=== PATIENT | female | born 1960 | race Caucasian/White ===

== ENCOUNTER 2016-10-24 11:52 | Emergency (ER) ==
[2016-10-24 11:58] VITALS: BP 118/81; TEMP 98.1; BMI 39.6
[2016-10-24 12:27] LABS: BASOPHILS # (AUTO) 0.1 K/uL (0-0.2); BASOPHILS % (AUTO) 0.8 % (0.0-3.0); EOSINOPHILS # (AUTO) 0.3 K/ul (0.0-0.7); EOSINOPHILS % (AUTO) 3.6 % (0.0-7.0); HEMATOCRIT 32.3 % (37.0-47.0); HEMOGLOBIN 10.7 g/dl (12.0-16.0); IMMATURE GRANULOCYTE % (AUTO) 0.1 % (0.0-5.0); LYMPHOCYTES # (AUTO) 1.8 K/uL (0.60-3.4); LYMPHOCYTES % (AUTO) 24.8 (10.0-50.0); MEAN CORPUSCULAR HEMOGLOBIN 29.3 pg (27.0-31.0); MEAN CORPUSCULAR HGB CONC 33.1 (31.8-35.4); MEAN CORPUSCULAR VOLUME 88.5 fl (81.0-99.0); MONOCYTES # (AUTO) 0.4 K/uL (0.4-2.0); MONOCYTES % (AUTO) 5.4 (0-10); NEUTROPHILS # (AUTO) 4.7 K/ul (2.0-6.9); NEUTROPHILS % (AUTO) 65.3; PLATELET COUNT 255 10^3/uL (140-440); RED BLOOD COUNT 3.65 10^6/ul (4.20-5.40); WHITE BLOOD COUNT 7.22 K/ul (4.6-10.2)
[2016-10-24 12:46] LABS: PARTIAL THROMBOPLASTIN TIME 26.3 SEC (23.9-40.0); PROTHROMBIN TIME 10.3 SEC (9.3-11.0)
--- NOTE | 2016-10-24 12:48 | DI ---
EXAM: Chest one view, frontal view only. HISTORY: Chest pain. COMPARISON: 02/22/2016. FINDINGS: Left-sided pacemaker noted. The heart size is normal. There is no pulmonary vascular co ngestion. The lungs are clear. No pleural effusion or pneumothorax is seen. No acute osseous abno rmality is identified. IMPRESSION: No acute cardiopulmonary process.
[2016-10-24 13:05] LABS: ALBUMIN 3.4 g/dL (3.4-5.0); ALBUMIN/GLOBULIN RATIO 0.97; BILIRUBIN,TOTAL 0.28 mg/dL (0.00-1.20); BUN/CREATININE RATIO 20.83; CALCIUM 9.5 mg/dL (8.2-10.2); CREATININE 0.72 mg/dL (0.60-1.30); TOTAL PROTEIN 6.9 g/dL (6.4-8.2); TROPONIN I 0.042 ng/ml (0.0000-0.4000)
--- NOTE | 2016-10-24 13:24 | ED.PDOC ---
General ED Provider: Dr. KATHLEEN BAINS Chief Complaint: Palpitations Stated Complaint: palpitation Time Seen by Physician: 12:00 Mode of Arrival: Walk-In Information Source: Patient Exam Limitations: No limitations Primary Care Provider: DOMINIC PIZANO Nursing and Triage Documentation Reviewed and Agree: Yes Cardiovascular Complaint Exam - Palpitations Complaint/Exam Onset/Duration: off/on x 1 week Timing: Intermittent Initial Severity: Mild Current Severity: None Character: Reports: Irregular, Pounding, Skipped beats Aggravating: Reports: Exertion Alleviating: Reports: Rest Associated Signs and Symptoms: Denies: Lightheadedness, Dizziness, Syncope, Chest pain, Shortness of breath, Diaphoresis, Nausea, Vomiting Related History: Similar episode Review of Systems - Review Of Systems Constitutional: Reports: No symptoms Eyes: Reports: No symptoms Ears, Nose, Mouth, Throat: Reports: No symptoms Respiratory: Reports: No symptoms Cardiac: Reports: Palpitations GI: Reports: No symptoms : Reports: No symptoms Musculoskeletal: Reports: No symptoms Skin: Reports: No symptoms Neurological: Reports: No symptoms Endocrine: Reports: No symptoms Hematologic/Lymphatic: Reports: No symptoms All Other Systems: Reviewed and Negative Past Medical History - Past Medical History Previously Healthy: No Endocrine: Reports: Hypothyroid Cardiovascular: Reports: Other (s/p abelation) Respiratory: Reports: None Hematological: Reports: None Gastrointestinal: Reports: None Genitourinary: Reports: None Neuro/Psych: Reports: None Musculoskeletal: Reports: None Cancer: Reports: None Last Menstrual Period: none - Surgical History General Surgical History: Reports: Unknown - Family History Family History: Reports: Unknown - Social History Smoking Status: Former smoker Hx Substance Use: No Alcohol Screening: None Physical Exam - Physical Exam Appearance: Well-appearing, No pain distress, Well-nourished Eyes: MARYCHUY, EOMI, Conjunctiva clear ENT: Ears normal, Nose normal, Oropharynx normal Respiratory: Airway patent, Breath sounds clear, Breath sounds equal, Respirations nonlabored Cardiovascular: RRR, Pulses normal, No rub, No murmur GI/: Soft, Nontender, No masses, Bowel sounds normal, No Organomegaly Musculoskeletal: Normal strength, ROM intact, No edema, No calf tenderness Skin: Warm, Dry, Normal color Neurological: Sensation intact, Motor intact, Reflexes intact, Cranial nerves intact, Alert, Oriented Psychiatric: Affect appropriate, Mood appropriate Interpretation - EKG Interpretation Time of EKG #1: 12:12 (atrial paced rythm umderlying artifact RBBB) Physician Notification - Case Discussed Physician Notified: CARO BLANCO STATED PT MAY GO HOME WITH A HOLTER DEVICE Critical Care Note - Critical Care Note Total Time (mins): 0 Course - Course Hematology/Chemistry: 10/24/16 12:20 10/24/16 12:20 Orders, Labs, Meds: Lab Review 10/24/16 12:20 WBC 7.22 RBC 3.65 L Hgb 10.7 L Hct 32.3 L MCV 88.5 MCH 29.3 MCHC 33.1 RDW Coeff of Gisselle 13.4 Plt Count 255 Immature Gran % (Auto) 0.1 Neut % (Auto) 65.3 Lymph % (Auto) 24.8 Foard % (Auto) 5.4 Eos % (Auto) 3.6 Baso % (Auto) 0.8 Immature Gran # (Auto) 0.0 Neut # 4.7 Lymph # 1.8 Foard # 0.4 Eos # 0.3 Baso # 0.1 PT 10.3 INR 1.00 APTT 26.3 Sodium 143 Potassium 4.0 Chloride 106 Carbon Dioxide 28 Anion Gap 13.0 BUN 15 Creatinine 0.72 Estimated GFR (MDRD) 84.00 BUN/Creatinine Ratio 20.83 Glucose 83 Calcium 9.5 Total Bilirubin 0.28 AST 17 ALT 12 Alkaline Phosphatase 55 Total Creatine Kinase 33 Troponin I 0.0420 Total Protein 6.9 Albumin 3.4 Globulin 3.5 Albumin/Globulin Ratio 0.97 Free T4 0.93 Orders Category Date Time Status EKG-(ED ONLY) Stat CARDIO 10/24/16 12:12 Completed ED IV/MEDIPORT/POWERPORT .ONCE EMERGENCY 10/24/16 12:11 Active CBC W/ AUTO DIFF Stat LAB 10/24/16 12:20 Completed COMPREHENSIVE METABOLIC PANEL Stat LAB 10/24/16 12:20 Completed CREATINE KINASE Stat LAB 10/24/16 12:20 Completed FREE T4 (FREE THYROXINE) Stat LAB 10/24/16 12:20 Completed PARTIAL THROMBOPLASTIN TIME Stat LAB 10/24/16 12:20 Completed PT WITH INR Stat LAB 10/24/16 12:20 Completed TROPONIN I Stat LAB 10/24/16 12:20 Completed 0.9 % Sodium Chloride [Saline Flush] MEDS 10/24/16 12:11 Active 1 syr IVF PRN PRN CHEST, 1V AP ONLY Stat RADS 10/24/16 12:11 Completed Medications Generic Name Dose Route Start Last Admin Trade Name Freq PRN Reason Stop Dose Admin Sodium Chloride 1 syr 10/24/16 12:11 Saline Flush IVF PRN PRN To flush IV Vital Signs: Temp Pulse Resp BP Pulse Ox 10/24/16 11:53 98.1 F 82 18 118/81 97 LIZY Risk Score LIZY Risk Score: Risk Score Odds of by 30D 0 0.1 (0.1-0.2) 1 0.3 (0.2-0.3) 2 0.4 (0.3-0.5) 3 0.7 (0.6-0.9) 4 1.2 (1.0-1.5) 5 2.2 (1.9-2.6) 6 3.0 (2.5-3.6) 7 4.8 (3.8-6.1) Departure - Departure Time of Disposition: 14:15 (SPOKE TO PT WITH PMD INSTRUCTIONS NURSE AT BEDSIDE HERNAN OF LABS AND EKG GIVEN TO PT TO TAKE TO PMD ) Disposition: TSF SHORT-TRM HOSP Discharge Problem: Palpitations Instructions: Palpitations (ED) Condition: Good Pt referred to PMD for follow-up: Yes Allergies/Adverse Reactions: Allergies doxepin HCl [From Sinequan] Adverse Reaction (Verified 10/24/16 11:59) Home Medications: Ambulatory Orders Furosemide [Lasix] 20 mg PO DAILY 04/24/14 Citalopram Hydrobromide [Celexa] 20 mg PO DAILY 10/24/16 Levothyroxine Sodium [Synthroid] 50 mcg PO QDAC 10/24/16 Nadolol 80 mg PO BID 10/24/16 Ursodiol [Actigall] 300 mg PO BID 10/24/16
--- NOTE | 2016-10-26 09:43 | HOLTER ---
PATIENT INFORMATION AND COMMENTS Indications: PALPITATIONS __ Patient Medications: CELEXA, SYNTHROID, ACTIGALL, NADOLOL __ Pre-procedure Summary: Protocol: Standard Heart Rate Started: 10/24/16 1433 Minimum: 65 BPM Weight: 210 LBS Ended: 10/25/16 1407 Maximum: 129 BPM Height: 61" Duration: 23 HRS 34 MIN Average: 80 BPM _ INTERPRETATIONS/OBSERVATIONS: 1. BASIC RHYTHM: SINUS, RATE 65 TO 130/BPM, AVERAGE 80/BPM 2. RARE PVC'S AND PAC'S 3. NO ST-T WAVE CHANGES 4. ACTIVITY LOG NOT MAINTAINED MTDD
== END 2016-10-24 14:47 | disposition home or self-care (01) ==
LOC: ED 11:52
DX: R00.2 Palpitations (principal); E03.9 Hypothyroidism, unspecified; Z79.899 Other long term (current) drug therapy
CPT/HCPCS: 36415; 80053; 82550; 84439; 84484; 85025; 85610; 85730; 93005; 93010; 99283

== ENCOUNTER 2016-12-26 13:47 | Outpatient (CLI) ==
[2016-12-26 13:59] LABS: BASOPHILS # (AUTO) 0.1 K/uL (0-0.2); BASOPHILS % (AUTO) 0.9 % (0.0-3.0); EOSINOPHILS # (AUTO) 0.1 K/ul (0.0-0.7); EOSINOPHILS % (AUTO) 1.5 % (0.0-7.0); HEMATOCRIT 37.8 % (37.0-47.0); HEMOGLOBIN 12.2 g/dl (12.0-16.0); IMMATURE GRANULOCYTE % (AUTO) 0.3 % (0.0-5.0); LYMPHOCYTES # (AUTO) 1.5 K/uL (0.60-3.4); LYMPHOCYTES % (AUTO) 15.6 (10.0-50.0); MEAN CORPUSCULAR HEMOGLOBIN 28.7 pg (27.0-31.0); MEAN CORPUSCULAR HGB CONC 32.3 (31.8-35.4); MEAN CORPUSCULAR VOLUME 88.9 fl (81.0-99.0); MONOCYTES # (AUTO) 0.3 K/uL (0.4-2.0); MONOCYTES % (AUTO) 3.5 (0-10); NEUTROPHILS # (AUTO) 7.4 K/ul (2.0-6.9); NEUTROPHILS % (AUTO) 78.2; PLATELET COUNT 304 10^3/uL (140-440); RED BLOOD COUNT 4.25 10^6/ul (4.20-5.40)
[2016-12-26 14:17] LABS: ALBUMIN/GLOBULIN RATIO 1.05; ANION GAP 11.7; BILIRUBIN,TOTAL 0.26 mg/dL (0.00-1.20); BUN/CREATININE RATIO 23.07; CALCIUM 9.6 mg/dL (8.2-10.2); CREATININE 0.78 mg/dL (0.60-1.30); POTASSIUM 3.7 mmol/L (3.5-5.10); TOTAL PROTEIN 7.8 g/dL (6.4-8.2)
--- NOTE | 2016-12-26 15:00 | CT ---
EXAM: CT of the lumbar spine without contrast History: Lower back pain. Comparison: Lumbar spine CT 07/15/2016 Technique: Multiplanar CT images through the lumbar spine were obtained without the administration of IV contrast Findings: Atherosclerotic vascular calcifications. Right renal cyst. No acute fracture. Mild to moderate multilevel degenerative disc space narrowing, similar to the pr ior study. Stable mild anterolisthesis of L4 on L5. T12-L1: No significant disc bulge, central canal stenosis or bony neural foraminal narrowing. L1-L2: No significant disc bulge, central canal stenosis or bony neural foraminal narrowing. L2-L3: No significant disc bulge or bony central canal stenosis. Mild to moderate left and mild ri ght bony neural foraminal narrowing secondary to ligamentous and facet hypertrophy. L3-L4: Small disc bulge effacing the anterior thecal sac with no significant central canal stenosis . Moderate left and mild right bony neural foraminal narrowing secondary to ligamentous and facet h ypertrophy. L4-L5: Small disc bulge with no significant central canal stenosis. Severe left and mild to modera te right bony neural foraminal narrowing secondary to ligamentous and facet hypertrophy. L5-S1: No significant disc bulge or bony central canal stenosis. Severe right and moderate left waqas [place] neural foraminal narrowing secondary to ligamentous and facet hypertrophy. Impression: 1. No acute osseous abnormality of the lumbar spine. 2. Level by level analysis as detailed above not significantly changed compared to the prior study.
== END 2016-12-26 13:48 | disposition home or self-care (01) ==
LOC: RAD 13:47
PROVIDERS: ATTEND Emergency Medicine
DX: M54.5 Low back pain (principal); E11.9 Type 2 diabetes mellitus without complications; I10 Essential (primary) hypertension; E78.5 Hyperlipidemia, unspecified; D64.9 Anemia, unspecified
CPT/HCPCS: 36415; 80053; 85025

== ENCOUNTER → 2017-02-15 | Outpatient (RCR) ==
--- NOTE | 2017-02-07 11:31 | RS.OPPTEV2 ---
Date of Note: 02/06/17 Visit #: 1 Date of Evaluation: 02/06/17 Payer Source: Medicaid Treatment Diagnosis: middle and lower back pain History of Condition/Mechanism of Injury:: Patient reports progressive onset of low back pain. Reports no known injury. Functional Limitations: Sleep, Self Care, ADL's, Reaching, Sitting, Bending, Squatting Current Subjective/complaints:: Patient reports having middle and lower back pain. States she has pain into the legs all the time. States she does get symptoms of tingling/numbness into the legs, but mostly at night. States the only relief she gets is with walking. States she walks 6-7 miles per day. States towards the end of her walking, she gets pain in the middle of the back. States laying sitting usually cause increased pain. She has to change positions frequently. Treatment Side (optional): Left Medical History Medical History: Hypertension, Arthritis, Emphysema Medical History Comments:: former Diabetic Surgical History Comments:: (R) knee, hysterectomy, (R) hand carpal tunnel, Ostomy, Gastric surgery Smoking Status: Former smoker Hx Home Medications: Ibuprofen Patient's Goals: Her goal is to get relief of back pain. Pain Assessment - Pain Description Pain Location: middle and low back Current Pain Intensity: 7/10 Worst Pain Intensity: 10/10 Functional Outcome Measure Oswestry LBP: 54 - G Codes & Severity Modifier G Codes & Modifier: NA Source of G Code score: NA Gait - Gait Pattern General Gait Pattern Observation: No Deviations/Normal - ROM Lumbar Flexion: Hand reach to patellae Sidebending to Left: Reach to Mid-thigh Sidebending to Right: Reach to Mid-thigh Comments: Reports sidebending to her left pulls and increases pain on the right side. Bilateral LE AROM is WFL's. Patient reports discomfort with single hip flexion, bilaterally. - Strength Trunk Rotation: 4- Good- Comments: General LE strength is 4/5. - Special Tests DARINEL Test: Negative Left, Positive Right SLR Test: Positive Left, Positive Right Seated Dural Stretch Test: Positive Right SI Joint Compression: Positive Palpation Comments:: Patient reports tenderness with palpation to the lumbosacral region and SI joints. Reports tenderness with central pressures to the lower lumbar vertebrae and thoracic vertebrae (T7-10). Sensation - Sensation Comments: Reports hyposensitivity along the left medial lower leg. Otherwise, sensation is intact. Additional Comments: Additional Comments: SLR in supine: left 40 degrees, right 45-50 degrees. - Treatment Modality: Ultrasound Parameters/Method Applied: 1.5 w/cm2 continuous X 10 mins to the lumbo/sacral region. Patient Position: Left Sidelying Interventions - Exercise/Activities/Manual Therapy Exercises/Activities: Patient instructed in HS stretch only on the left LE for now to equally HS length. Given red theraband and instructed in scapular retraction. Manual Therapy: NA HOME EXERCISE PROGRAM: HS stretch only on the left LE for now to equally HS length. Given red theraband and instructed in scapular retraction. - Charges Total Direct Minutes: 55 mins Total Treatment Time: 55 mins Procedures billed for this date of service:: VERONICA Herrera, [place] Assessment Assessment: Patient presents to therapy with a diagnosis of back pain. She reports middle and lower back pain with radiating symptoms into the LE's. Reports relief with walking. She demonstrates tenderness at the lumbosacral region, a positive DARINEL's test on the right, and an imbalance of HS length. She appears to have potential for postural strengthening to decrease middle back pain, and treatment of modalities and exercises to address SI joint related symptoms. Patient Education: Education of diagnosis, Body/Joint mechanics, Home Exercise Program, Home Safety, Activity Modification, Education of Plan of Care Rehab Potential: Good Short Term Goals Goal #1: Pt will demonstrate equal SLR to 50 degrees. Goal to be met by: 02/21/17 Goal #2: Tenderness at lumbosacral region decreased to minimal. Goal to be met by: 02/21/17 Goal #3: Radiating symptoms localized. Goal to be met by: 02/21/17 Commercial Engineer Goals Goal #1: Pt knows HEP and to continue ex's to maintain functional level at D/C. Goal to be met by: 03/19/17 Goal #2: Score on Oswestry LBP scale improved to 20. Goal to be met by: 03/19/17 Goal #3: Pt able to sleep with minimal interruption from back or leg pain. Goal to be met by: 03/19/17 Goal #4: Pt will tolerate sitting as needed with minimal back or LE discomfort. Goal to be met by: 03/19/17 Plan - Treatment to be Provided Procedures: Therapeutic Exercises, Therapeutic Activity, Manual Therapy, Patient Education Modalities: Electrical Stimulation, Ultrasound/Phonophoresis, Cryotherapy, Hot Packs - Treatment Plan Frequency: 3 X week Duration: 4 weeks ORDER # VISITS AND/OR THROUGH DATE: 03/19/17 - Treatment Code (1) Back pain Qualifiers: Back pain location: thoracic back pain Chronicity: acute Back pain laterality: midline Qualified Description: Acute midline thoracic back pain Qualifier Code(s): (M54.6) Pain in thoracic spine (2) Back pain Qualifiers: Back pain location: low back pain Chronicity: acute Back pain laterality: unspecified Sciatica presence: unspecified whether sciatica present Qualified Description: Acute low back pain, unspecified back pain laterality, with sciatica presence unspecified Qualifier Code(s): (M54.5) Low back pain (3) SI (sacroiliac) joint dysfunction Comments: M53.3
--- NOTE | 2017-02-10 16:03 | RS.CXNS ---
Date of scheduled appointment: 02/10/17 Type: Cancel
--- NOTE | 2017-02-15 15:14 | RS.OPPTDN ---
Subjective Date of Note: 02/15/17 Visit #: 2 Date of Evaluation: 02/06/17 Payer Source: Medicaid Treatment Diagnosis: middle and lower back pain Current Subjective/complaints:: C/o pain to the waistline and sacrum. Says she felt backache after her first session later into the night. Pain Assessment - Pain Description Pain Location: middle and low back Current Pain Intensity: 7/10 - Treatment Modality: Ultrasound Parameters/Method Applied: continuous @ 1.6 w/cm2 x 12 mins to bilateral lumbar paraspinals Patient Position: Left Sidelying - Heat/Cryotherapy Treatment: Hot Pack (mid to low back in supinex 20 mins) Interventions - Exercise/Activities/Manual Therapy Exercises/Activities: Passive stretching: SKTC, HS, Piriformis, trunk rotation x 3. Started isometric hip flexion and abd, pillow squeezes x 10 reps. Total minutes of Exercise: 14 Manual Therapy: NA HOME EXERCISE PROGRAM: HS stretch only on the left LE for now to equally HS length. Given red theraband and instructed in scapular retraction. - Charges Total Direct Minutes: 26 Total Treatment Time: 46 Procedures billed for this date of service:: hp, u/s, ex Assessment: Patient madison all stretches and therex well. She is attentive to perform further therex to improve pain and strength. She is currently walking 5 to 7 miles daily. She voiced improved pain following therapy today. Patient Education: Education of diagnosis, Body/Joint mechanics, Home Exercise Program, Home Safety, Activity Modification, Education of Plan of Care Patient demonstrates compliance with HEP?: Yes Short Term Goals Goal #1: Pt will demonstrate equal SLR to 50 degrees. Goal to be met by: 02/21/17 Goal #2: Tenderness at lumbosacral region decreased to minimal. Goal to be met by: 02/21/17 Goal #3: Radiating symptoms localized. Goal to be met by: 02/21/17 Fpc Goals Goal #1: Pt knows HEP and to continue ex's to maintain functional level at D/C. Goal to be met by: 03/19/17 Goal #2: Score on Oswestry LBP scale improved to 20. Goal to be met by: 03/19/17 Goal #3: Pt able to sleep with minimal interruption from back or leg pain. Goal to be met by: 03/19/17 Goal #4: Pt will tolerate sitting as needed with minimal back or LE discomfort. Goal to be met by: 03/19/17 Plan PLAN OF CARE EXPIRES ON:: 03/19/17 ORDER # VISITS AND/OR THROUGH DATE: 03/19/17 PLAN: Continue Plan of Care
== END ==
PROVIDERS: ATTEND Emergency Medicine
DX: M54.9 Dorsalgia, unspecified (principal)

== ENCOUNTER 2017-02-24 09:15 | Outpatient (RCR) ==
--- NOTE | 2017-02-17 14:47 | RS.OPPTDN ---
Subjective Date of Note: 02/17/17 Visit #: 3 Date of Evaluation: 02/06/17 Payer Source: Medicaid Treatment Diagnosis: middle and lower back pain Current Subjective/complaints:: Patient says back pain has been better with her last session. Pain Assessment - Pain Description Pain Location: middle and low back Current Pain Intensity: 03/27 - Treatment Modality: Ultrasound Parameters/Method Applied: continuous @ 1.6 w/cm2 x 10 mins to the R lower thoracic and lumbar paraspinals Patient Position: Left Sidelying - Heat/Cryotherapy Treatment: Hot Pack (mid to low back in supine x 20) Interventions - Exercise/Activities/Manual Therapy Exercises/Activities: Patient attempted pillow squeezes and isometric hip abd in hooklying x 10. No other stretches or therex due to patient's ostomy leaking and needed to get home. Total minutes of Exercise: 4 Manual Therapy: NA HOME EXERCISE PROGRAM: HS stretch only on the left LE for now to equally HS length. Given red theraband and instructed in scapular retraction. - Charges Total Direct Minutes: 14 Total Treatment Time: 34 Procedures billed for this date of service:: hp, u/s Assessment: Patient had felt treatment was helping, but needed to leave early due to ostomy leaking when turning from supine to L sidelying. Patient Education: Education of diagnosis, Body/Joint mechanics, Home Exercise Program, Home Safety, Activity Modification, Education of Plan of Care Short Term Goals Goal #1: Pt will demonstrate equal SLR to 50 degrees. Goal to be met by: 02/21/17 Goal #2: Tenderness at lumbosacral region decreased to minimal. Goal to be met by: 02/21/17 Goal #3: Radiating symptoms localized. Goal to be met by: 02/21/17 Snf Goals Goal #1: Pt knows HEP and to continue ex's to maintain functional level at D/C. Goal to be met by: 03/19/17 Goal #2: Score on Oswestry LBP scale improved to 20. Goal to be met by: 03/19/17 Goal #3: Pt able to sleep with minimal interruption from back or leg pain. Goal to be met by: 03/19/17 Goal #4: Pt will tolerate sitting as needed with minimal back or LE discomfort. Goal to be met by: 03/19/17 Plan PLAN OF CARE EXPIRES ON:: 02/17/17 ORDER # VISITS AND/OR THROUGH DATE: 03/19/17 PLAN: Continue Plan of Care
--- NOTE | 2017-02-21 09:46 | RS.CXNS ---
Date of scheduled appointment: 02/21/17 Type: Cancel Reason for Cancel/NS: Patient had a MD appt out of town.
--- NOTE | 2017-02-24 10:31 | RS.OPPTDN ---
Subjective Date of Note: 02/24/17 Visit #: 4 Date of Evaluation: 02/06/17 Payer Source: Medicaid Treatment Diagnosis: middle and lower back pain Current Subjective/complaints:: Patient says she is scheduled for surgery , but is anticipate getting in sooner. She says she has a blockage in her stoma and is having a lot of problems with bed mobiity and fears performing exercises. Pain Assessment - Pain Description Pain Location: middle and low back Current Pain Intensity: 03/27 - Treatment Modality: Ultrasound Parameters/Method Applied: continuous @ 1.6 w/cm2 x 15 mins to bilateral Lumbar paraspinals Patient Position: Right Sidelying - Heat/Cryotherapy Treatment: Hot Pack (mid to low ack supine x 20) Interventions - Exercise/Activities/Manual Therapy Exercises/Activities: None today. Holding chart due to impending surgery. Manual Therapy: NA HOME EXERCISE PROGRAM: HS stretch only on the left LE for now to equally HS length. Given red theraband and instructed in scapular retraction. - Charges Total Direct Minutes: 15 Total Treatment Time: 35 Procedures billed for this date of service:: hp, Assessment: Holding PT at this time as [place] will be having surgery and will be needing to have preop and tests performed reducing time for therapy. She will contact us once she has recovered from her procedure. Patient Education: Body/Joint mechanics, Home Exercise Program, Home Safety, Activity Modification Short Term Goals Goal #1: Pt will demonstrate equal SLR to 50 degrees. Goal to be met by: 02/21/17 Goal #2: Tenderness at lumbosacral region decreased to minimal. Goal to be met by: 02/21/17 Goal #3: Radiating symptoms localized. Goal to be met by: 02/21/17 Insurance Billing Clerk Goals Goal #1: Pt knows HEP and to continue ex's to maintain functional level at D/C. Goal to be met by: 03/19/17 Goal #2: Score on Oswestry LBP scale improved to 20. Goal to be met by: 03/19/17 Goal #3: Pt able to sleep with minimal interruption from back or leg pain. Goal to be met by: 03/19/17 Goal #4: Pt will tolerate sitting as needed with minimal back or LE discomfort. Goal to be met by: 03/19/17 Plan PLAN OF CARE EXPIRES ON:: 03/19/17 ORDER # VISITS AND/OR THROUGH DATE: 03/19/17 PLAN: Plan for Discharge (and hold further therapy until she has recovered from stoma surgery)
== END 2017-03-17 ==
PROVIDERS: ATTEND Emergency Medicine
DX: M54.9 Dorsalgia, unspecified (principal)

== ENCOUNTER 2017-03-24 10:04 | Emergency (ER) ==
[2017-03-24 10:04] VITALS: BMI 39.6
[2017-03-24 10:21] VITALS: BP 102/57; TEMP 98.7
--- NOTE | 2017-03-24 10:31 | ED.PDOC ---
General ED Provider: Dr. RADHA HAINES JR Chief Complaint: Wound Check Stated Complaint: diverticulitis; 11/03 colostomy; reversal 03/15; Dr Kidd 210 pounds; green drainage...Pain LUQ RLQ x 4 days. colostomy Oct, 2015 due to diverticulitis colostomy reversal 03/15/17 Home 4 days.pain since discharge. wound infected. Arlene intact. Yellow drainage noted LUQ. arlene open to air. weak. Dr Vail's office today. to ER for eval.[ End ]4 days 98.7 67 20 96% 102/57 8 Time Seen by Physician: 10:31 Mode of Arrival: Walk-In Information Source: Patient Exam Limitations: No limitations Primary Care Provider: [facility] Nursing and Triage Documentation Reviewed and Agree: No Review of Systems - Review Of Systems Constitutional: Reports: Malaise, Weakness Eyes: Reports: No symptoms Ears, Nose, Mouth, Throat: Reports: No symptoms Respiratory: Reports: No symptoms Cardiac: Reports: No symptoms GI: Reports: Abdominal pain, Nausea, Other (LUQ drainage(resolved at this time sutures linew tender with induration no discahrge) : Reports: No symptoms Musculoskeletal: Reports: No symptoms Skin: Reports: Lesions Neurological: Reports: No symptoms, Other (states no difficulty post op in the past feels she has an infection) Endocrine: Reports: No symptoms Hematologic/Lymphatic: Reports: No symptoms All Other Systems: Other Past Medical History - Past Medical History Previously Healthy: No Endocrine: Reports: DM 2, Hypothyroid Cardiovascular: Reports: Hypertension, CHF, Other (s/p abelation) Respiratory: Reports: COPD Hematological: Reports: Anemia Gastrointestinal: Reports: None Genitourinary: Reports: None Neuro/Psych: Reports: TIA, CVA, Anxiety Musculoskeletal: Reports: Arthritis Cancer: Reports: None Last Menstrual Period: hysterectomy Other Pertinent Past Medical History: FIBROMYALGIA - Surgical History General Surgical History: Reports: Hysterectomy (ablation x 2 &), (x2) , Orthopedic (CARPAL TUNNEL SURG), Gastric Sleeve, Other (colostomy 10/2015 with plyomwgo71/28/2017) - Family History Family History: Reports: Unknown - Social History Smoking Status: Former smoker Hx Substance Use: No Alcohol Screening: None Physical Exam - Physical Exam Appearance: Obese Ill-appearing: Mild Pain Distress: Mild Eyes: MARYCHUY, EOMI, Conjunctiva clear ENT: Ears normal, Nose normal, Oropharynx normal Neck: Supple Respiratory: Airway patent, Breath sounds clear, Breath sounds equal, Respirations nonlabored Cardiovascular: RRR, Pulses normal, No rub, No murmur GI/: No masses, Bowel sounds normal, Tender Musculoskeletal: Normal strength, ROM intact, No edema, No calf tenderness Skin: Warm, Dry, Normal color Neurological: Sensation intact, Motor intact, Reflexes intact, Cranial nerves intact, Alert, Oriented Psychiatric: Affect appropriate, Mood appropriate Physician Notification - Case Discussed Physician Notified: Reji Vail Time of Notification: 13:00 (follow up - call for appt) Critical Care Note - Critical Care Note Total Time (mins): 0 Course - Course Hematology/Chemistry: 03/24/17 10:45 03/24/17 10:45 Orders, Labs, Meds: Lab Review 03/24/17 03/24/17 10:45 10:50 WBC 8.25 RBC 2.58 L Hgb 7.5 L Hct 23.3 L MCV 90.3 MCH 29.1 MCHC 32.2 RDW Coeff of Gisselle 13.9 Plt Count 368 Immature Gran % (Auto) 0.4 Neut % (Auto) 70.0 Lymph % (Auto) 17.1 [place] % (Auto) 4.2 Eos % (Auto) 7.8 H Baso % (Auto) 0.5 Immature Gran # (Auto) 0.0 Neut # 5.8 Lymph # 1.4 [place] # 0.4 Eos # 0.6 Baso # 0.0 Sodium 145 Potassium 3.5 Chloride 103 Carbon Dioxide 30 Anion Gap 15.5 BUN 10 Creatinine 0.77 Estimated GFR (MDRD) 77.00 BUN/Creatinine Ratio 12.98 Glucose 96 Calcium 8.8 Total Bilirubin 0.17 AST 13 L ALT 8 L Alkaline Phosphatase 60 Total Protein 6.2 L Albumin 2.8 L Globulin 3.4 Albumin/Globulin Ratio 0.82 Amylase 33 Lipase 27 Procalcitonin < 0.05 Urine Color Dark Urine Clarity Clear Urine pH 8.0 Ur Specific [place] 1.015 Urine Protein 1+ Urine Glucose (UA) Negative Urine Ketones Negative Urine Blood Negative Urine Nitrite Negative Urine Bilirubin 1+ Urine Urobilinogen 1.0 Ur Leukocyte Esterase Negative Urine Microscopic RBC 2-5 Urine Microscopic WBC 2-5 Ur Squamous Epith Cells 2-5 Orders Category Date Time Status AMYLASE Stat LAB 03/24/17 10:45 Completed BLOOD CULTURE Stat LAB 03/24/17 10:45 Received CBC W/ AUTO DIFF Stat LAB 03/24/17 10:45 Completed COMPREHENSIVE METABOLIC PANEL Stat LAB 03/24/17 10:45 Completed LIPASE Stat LAB 03/24/17 10:45 Completed PROCALCITONIN Stat LAB 03/24/17 10:45 Completed PROCALCITONIN Stat LAB 03/24/17 10:45 Completed URINALYSIS C & S IF INDICATED Stat LAB 03/24/17 10:50 Completed CHEST, 1V AP ONLY Stat RADS 03/24/17 10:[address] ABDOMEN/PELVIS WO CONTRAST Stat RADS 03/24/17 10:31 Completed Vital Signs: Temp Pulse Resp BP Pulse Ox 03/24/17 10:05 98.7 F 67 20 102/57 L 96 Departure - Departure Time of Disposition: 13:32 Disposition: HOME SELF-CARE Discharge Problem: S/P abdominal surgery, follow-up exam Instructions: Wound Healing and Your Diet (ED) Condition: Good Pt referred to PMD for follow-up: Yes (follow up surgeon next week) Additional Instructions: call surgeon office today to schedule follow up next week may use [place] for pain may use zofran for nausea clear liquids for 12 hours after nausea or vomiting recommend diet diary(everything put into mouth) return if fever over 101.0 if vomiting more than three times or more than once an hour follow up PMD as scheduled Prescriptions: Hydrocodone Bit/Acetaminophen [[place] 5-325] 1 - 2 tab PO Q6HR PRN #12 tablet PRN Reason: pain Ondansetron HCl [Zofran Tab] 4 mg PO QID PRN #12 tablet PRN Reason: Nausea / Vomiting Allergies/Adverse Reactions: Allergies adhesive Allergy (Severe, Verified 03/24/17 10:20) Rash doxepin HCl [From [place]] Adverse Reaction (Verified 03/24/17 10:20) Home Medications: Ambulatory Orders Furosemide [Lasix] 20 mg PO DAILY 04/24/14 Citalopram Hydrobromide [Celexa] 20 mg PO DAILY 10/24/16 Levothyroxine Sodium [Synthroid] 50 mcg PO QDAC 10/24/16 Nadolol 80 mg PO BID 10/24/16 Gabapentin 600 mg PO BID 03/10/17 Multivitamin [Multi-Vitamin Daily] 1 each PO d 03/10/17 Ropinirole HCl [Requip] 2 mg PO BEDTIME 03/10/17 Hydrocodone Bit/Acetaminophen [[place] 5-325] 1 - 2 tab PO Q6HR PRN #12 tablet 04/03 Ibuprofen 600 mg PO Q6HR PRN 03/24/17 Ondansetron HCl [Zofran Tab] 4 mg PO QID PRN #12 tablet 03/24/17
[2017-03-24 10:48] LABS: BASOPHILS % (AUTO) 0.5 % (0.0-3.0); EOSINOPHILS # (AUTO) 0.6 K/ul (0.0-0.7); EOSINOPHILS % (AUTO) 7.8 % (0.0-7.0); HEMATOCRIT 23.3 % (37.0-47.0); HEMOGLOBIN 7.5 g/dl (12.0-16.0); IMMATURE GRANULOCYTE % (AUTO) 0.4 % (0.0-5.0); LYMPHOCYTES # (AUTO) 1.4 K/uL (0.60-3.4); LYMPHOCYTES % (AUTO) 17.1 (10.0-50.0); MEAN CORPUSCULAR HEMOGLOBIN 29.1 pg (27.0-31.0); MEAN CORPUSCULAR HGB CONC 32.2 (31.8-35.4); MEAN CORPUSCULAR VOLUME 90.3 fl (81.0-99.0); MONOCYTES # (AUTO) 0.4 K/uL (0.4-2.0); MONOCYTES % (AUTO) 4.2 (0-10); NEUTROPHILS # (AUTO) 5.8 K/ul (2.0-6.9); PLATELET COUNT 368 10^3/uL (140-440); RED BLOOD COUNT 2.58 10^6/ul (4.20-5.40); WHITE BLOOD COUNT 8.25 K/ul (4.6-10.2)
[2017-03-24 11:02] LABS: BILIRUBIN,URINE 1+ (NEGATIVE); KETONES,URINE Negative (NEGATIVE); LEUKOCYTE ESTERASE ,URINE Negative (NEGATIVE); NITRITE,URINE Negative (NEGATIVE); PROTEIN,URINE 1+ (NEGATIVE); URINE, BLOOD Negative (NEGATIVE)
[2017-03-24 11:09] LABS: ALBUMIN 2.8 g/dL (3.4-5.0); ALBUMIN/GLOBULIN RATIO 0.82; ANION GAP 15.5; BILIRUBIN,TOTAL 0.17 mg/dL (0.00-1.20); BUN/CREATININE RATIO 12.98; CALCIUM 8.8 mg/dL (8.2-10.2); CREATININE 0.77 mg/dL (0.60-1.30); POTASSIUM 3.5 mmol/L (3.5-5.10); TOTAL PROTEIN 6.2 g/dL (6.4-8.2)
--- NOTE | 2017-03-24 11:14 | DI ---
EXAM: The frontal view of the chest HISTORY: Chest pain. COMPARISON: X-ray 10/24/2016 and multiple priors the FINDINGS: Cardiomediastinal silhouette is unchanged with stable lead wires. There is no pneumothora x or pleural effusion. There is no consolidation, nodule or mass. The osseous structures are unrem arkable. IMPRESSION: No acute cardiopulmonary process.
--- NOTE | 2017-03-24 11:28 | CT ---
EXAM: CT Abdomen without contrast. CT Pelvis without contrast. HISTORY: Abdominal pain, nausea and vomiting. Recent colostomy reversal. COMPARISON: 02/28/2017. TECHNIQUE: Multiple axial images of the abdomen and pelvis were obtained without intravenous contra st. Images were reformatted in the coronal plane. FINDINGS: Please note that evaluation of the abdominal and pelvic structures is limited due to lack of intravenous contrast. Pacemaker leads partially imaged in the right heart. Subsegmental atelectasis noted in the lung bas e with probable trace left pleural effusion. Degenerative changes present in the spine. The liver, gallbladder, pancreas, spleen, adrenal glands, and kidneys are without acute abnormality. Right renal cyst again noted. Postsurgical changes of the stomach seen. There has been take down the left lower quadrant colostom y as well as severe. A parastomal hernia. A moderate amount of subcutaneous fluid is present near the old ostomy/hernia site as well as within the midline along an incision above, at and below the u mbilicus. Subcutaneous air and skin mallika are also present. No drainable fluid collection identi fied. There is no evidence for bowel obstruction. Note that lack of intravenous and oral contrast does li rafal evaluation of the small bowel, particularly in the left abdomen where lack of air within the bow el makes distinction between intraluminal and extraluminal fluid difficult. There is a small amount of free fluid throughout the abdomen and pelvis. No drainable fluid collection identified. Tiny a mount of pneumoperitoneum is present, consistent with recent surgery. Staple line seen in the rectu m. Uterus is absent. Urinary bladder is not well distended. IMPRESSION: 1. Status post left colostomy reversal and parastomal hernia repair. No evidence for bowel obstruc tion. 2. Small amount of free fluid. No drainable abscess. 3. If symptoms persist, consider repeat with intravenous and oral contrast.
[2017-03-24 11:31] LABS: ADD URINE MICROSCOPIC YES
== END 2017-03-24 13:55 | disposition home or self-care (01) ==
LOC: ED 10:04
DX: G89.18 Other acute postprocedural pain (principal); R10.11 Right upper quadrant pain; R10.12 Left upper quadrant pain; R11.0 Nausea; R53.1 Weakness; E11.9 Type 2 diabetes mellitus without complications; E03.9 Hypothyroidism, unspecified; I10 Essential (primary) hypertension; D64.9 Anemia, unspecified; Z87.19 Personal history of other diseases of the digestive system; Z98.890 Other specified postprocedural states; Z79.899 Other long term (current) drug therapy; Z86.73 Personal history of transient ischemic attack (TIA), and cerebral infarction without residual deficits
CPT/HCPCS: 36415; 80053; 81001; 82150; 83690; 84145; 85025; 87040; 99283

== ENCOUNTER 2017-03-28 11:46 | Outpatient (CLI) ==
[2017-03-28 15:34] LABS: BASOPHILS # (AUTO) 0.1 K/uL (0-0.2); BASOPHILS % (AUTO) 1.1 % (0.0-3.0); EOSINOPHILS # (AUTO) 0.7 K/ul (0.0-0.7); EOSINOPHILS % (AUTO) 7.6 % (0.0-7.0); HEMATOCRIT 27.1 % (37.0-47.0); HEMOGLOBIN 8.4 g/dl (12.0-16.0); IMMATURE GRANULOCYTE % (AUTO) 0.4 % (0.0-5.0); LYMPHOCYTES # (AUTO) 1.9 K/uL (0.60-3.4); MEAN CORPUSCULAR HEMOGLOBIN 28.2 pg (27.0-31.0); MEAN CORPUSCULAR VOLUME 90.9 fl (81.0-99.0); MONOCYTES # (AUTO) 0.5 K/uL (0.4-2.0); MONOCYTES % (AUTO) 5.2 (0-10); NEUTROPHILS # (AUTO) 6.5 K/ul (2.0-6.9); NEUTROPHILS % (AUTO) 66.7; PLATELET COUNT 466 10^3/uL (140-440); RED BLOOD COUNT 2.98 10^6/ul (4.20-5.40); WHITE BLOOD COUNT 9.78 K/ul (4.6-10.2)
== END 2017-03-28 11:47 | disposition home or self-care (01) ==
LOC: LAB 11:46
PROVIDERS: ATTEND Emergency Medicine
DX: D50.0 Iron deficiency anemia secondary to blood loss (chronic) (principal)
CPT/HCPCS: 36415; 85025

== ENCOUNTER 2017-04-05 14:57 | Outpatient (CLI) ==
[2017-04-05 16:46] LABS: BASOPHILS # (AUTO) 0.1 K/uL (0-0.2); BASOPHILS % (AUTO) 1.7 % (0.0-3.0); EOSINOPHILS # (AUTO) 0.8 K/ul (0.0-0.7); IMMATURE GRANULOCYTE % (AUTO) 0.3 % (0.0-5.0); LYMPHOCYTES # (AUTO) 1.8 K/uL (0.60-3.4); LYMPHOCYTES % (AUTO) 23.5 (10.0-50.0); MEAN CORPUSCULAR HEMOGLOBIN 27.4 pg (27.0-31.0); MEAN CORPUSCULAR VOLUME 88.4 fl (81.0-99.0); MONOCYTES # (AUTO) 0.4 K/uL (0.4-2.0); MONOCYTES % (AUTO) 5.2 (0-10); NEUTROPHILS # (AUTO) 4.5 K/ul (2.0-6.9); NEUTROPHILS % (AUTO) 58.3; PLATELET COUNT 392 10^3/uL (140-440); RED BLOOD COUNT 3.28 10^6/ul (4.20-5.40); WHITE BLOOD COUNT 7.65 K/ul (4.6-10.2)
== END 2017-04-05 14:58 | disposition home or self-care (01) ==
LOC: CAR 14:57
PROVIDERS: ATTEND Emergency Medicine
DX: I25.10 Atherosclerotic heart disease of native coronary artery without angina pectoris (principal); I10 Essential (primary) hypertension
CPT/HCPCS: 36415; 85025; 93005; 93010

== ENCOUNTER → 2017-05-02 | Outpatient (POV) | LOC: OUTPT 00:01 | PROVIDERS: ATTEND Otolaryngology | DX: H91.90 Unspecified hearing loss, unspecified ear (principal) ==

== ENCOUNTER 2017-06-21 10:47 | Outpatient (CLI) ==
--- NOTE | 2017-06-21 11:19 | DI ---
EXAM: Sacroiliac joints three views HISTORY: Sacroiliitis. FINDINGS / IMPRESSION: Sacroiliac joints are intact with no fusion or diastases. No fracture is se en and there is no significant arthropathy of the joints. Moderate facet arthropathy of the lower sp ine is incidentally noted.
== END 2017-06-21 10:48 | disposition home or self-care (01) ==
LOC: RAD 10:47
PROVIDERS: ATTEND Pain Medicine Interventional Pain Medicine
DX: M46.1 Sacroiliitis, not elsewhere classified (principal)

== ENCOUNTER 2017-07-13 16:00 | Outpatient (CLI) ==
[2017-07-13 16:26] LABS: BASOPHILS # (AUTO) 0.1 K/uL (0-0.2); BASOPHILS % (AUTO) 0.8 % (0.0-3.0); EOSINOPHILS # (AUTO) 0.3 K/ul (0.0-0.7); EOSINOPHILS % (AUTO) 3.4 % (0.0-7.0); HEMATOCRIT 33.3 % (37.0-47.0); HEMOGLOBIN 10.5 g/dl (12.0-16.0); IMMATURE GRANULOCYTE % (AUTO) 0.5 % (0.0-5.0); LYMPHOCYTES # (AUTO) 2.1 K/uL (0.60-3.4); LYMPHOCYTES % (AUTO) 24.7 (10.0-50.0); MEAN CORPUSCULAR HEMOGLOBIN 24.9 pg (27.0-31.0); MEAN CORPUSCULAR HGB CONC 31.5 (31.8-35.4); MEAN CORPUSCULAR VOLUME 79.1 fl (81.0-99.0); MONOCYTES # (AUTO) 0.4 K/uL (0.4-2.0); MONOCYTES % (AUTO) 4.7 (0-10); NEUTROPHILS # (AUTO) 5.7 K/ul (2.0-6.9); NEUTROPHILS % (AUTO) 65.9; PLATELET COUNT 308 10^3/uL (140-440); RED BLOOD COUNT 4.21 10^6/ul (4.20-5.40); WHITE BLOOD COUNT 8.65 K/ul (4.6-10.2)
[2017-07-13 17:04] LABS: ALBUMIN 3.4 g/dL (3.4-5.0); ALBUMIN/GLOBULIN RATIO 0.83; ANION GAP 11.3; BILIRUBIN,TOTAL 0.19 mg/dL (0.00-1.20); BUN/CREATININE RATIO 24.69; CHOL/HDL RATIO 4.3 (4.5-5.5); CREATININE 0.81 mg/dL (0.60-1.30); POTASSIUM 4.3 mmol/L (3.5-5.10); TOTAL PROTEIN 7.5 g/dL (6.4-8.2)
== END 2017-07-13 16:01 | disposition home or self-care (01) ==
LOC: LAB 16:00
PROVIDERS: ATTEND Emergency Medicine
DX: I25.10 Atherosclerotic heart disease of native coronary artery without angina pectoris (principal); E11.9 Type 2 diabetes mellitus without complications; E66.9 Obesity, unspecified
CPT/HCPCS: 36415; 80053; 80061; 84443; 85025

== ENCOUNTER 2017-07-25 11:00 | Outpatient (RCR) ==
--- NOTE | 2017-07-25 12:06 | RS.OPPTDN ---
Subjective Date of Note: 07/20/17 Date of Evaluation: 07/03/17 Payer Source: Medicaid Treatment Diagnosis: Low back pain, right LE radiating symptoms. Current Subjective/complaints:: Reports elevated pain today,has been up since about 4 AM. Pain Assessment - Pain Description Pain Location: low back and right LE Pain Description: Aching Current Pain Intensity: 10 - Treatment Modality: Ultrasound Parameters/Method Applied: 10 mins. continous mode , @ 1.5 w/cm2 to lumbar / SI joint. Patient Position: Left Sidelying - Heat/Cryotherapy Treatment: Hot Pack (20 mins. prior to US and exercise) Interventions - Exercise/Activities/Manual Therapy Exercises/Activities: 20mins. total of hamstring stretches ,SKTC,piriformis stretch, lower trunk rotation stretch. SI muscle energy techniques with isometric right hip flexion with left hip extension, 2 sets of 5 reps. Total minutes of Exercise: 20 Manual Therapy: NA Total minutes of Manual Therapy: 0 HOME EXERCISE PROGRAM: SKTC,90/90 hamstring stretch,piriformis stretch as tolerated. 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 Patient Education: Education of diagnosis, Body/Joint mechanics, Home Exercise Program, Home Safety, Activity Modification, Education of Plan of Care Patient demonstrates compliance with HEP?: Yes Short Term Goals Goal #1: Pt will demonstrate equal SLR to 50-55 degrees. Goal to be met by: 07/18/17 Progress towards Goal:: Partially Met Goal #2: Tenderness at right SI joint decreased to minimal. Goal to be met by: 07/18/17 Progress towards Goal:: No Change Goal #3: Right radiating symptoms decreased to occasional. Goal to be met by: 07/18/17 Progress towards Goal:: Progressing Shelter Goals Goal #1: Pt knows HEP and to continue ex's to maintain functional level at D/C. Goal to be met by: 08/23/17 Progress towards goal: Partially Met Goal #2: Score on Oswestry LBP scale improved to 30. Goal to be met by: 08/23/17 Progress towards goal: No Change Goal #3: Pt able to sleep with minimal interruption from back or leg pain. Goal to be met by: 08/23/17 Progress towards goal: Regressing Goal #4: Pt will tolerate sitting as needed with minimal back or LE discomfort. Goal to be met by: 08/23/17 Progress towards goal: No Change Plan PLAN OF CARE EXPIRES ON:: 08/23/17 ORDER # VISITS AND/OR THROUGH DATE: 08/23/17 PLAN: Tentative D/C after next session if she reports temporary relief only.
--- NOTE | 2017-07-25 12:08 | RS.QUICKDC ---
Discharge from PT Date of Discharge: 07/25/17 Number of Visits: 6 Reason for Discharge: Patient continues to report temporary relief only,agrees with D/C plan due to no significant relief.
--- NOTE | 2017-08-18 16:09 | RS.OPPTDC ---
Date of Discharge: 07/25/17 Date of Evaluation: 07/03/17 Number of Visits: 6 Treatment Diagnosis: Low back pain, right LE radiating symptoms. Current Complaints/Gains: Patient reports only temporary relief from therapy. Reports continued pain with activities, including walking and prolonged standing. Agrees with plan for D/C due to lack of progress. Functional Outcome Measure - G Codes & Severity Modifier G Codes & Modifier: Mob goal CI. Mob D/C CK Source of G Code score: Oswestry no change from evaluation Interventions - Exercise/Activities/Manual Therapy Exercises/Activities: NA Manual Therapy: NA HOME EXERCISE PROGRAM: SKTC,90/90 hamstring stretch,piriformis stretch as tolerated. - Charges Timed Code Treatment Minutes: NA Total Treatment Time: NA Procedures billed for this date of service:: NA Assessment Assessment: Patient reports only temporary relief of symptoms with therapy. Continues to report pain interrupting her sleep and limiting her activity level. She understands HEP. Short Term Goals Goal #1: Pt will demonstrate equal SLR to 50-55 degrees. Goal to be met by: 07/18/17 Progress towards Goal:: Partially Met Goal #2: Tenderness at right SI joint decreased to minimal. Goal to be met by: 07/18/17 Progress towards Goal:: Not Met Goal #3: Right radiating symptoms decreased to occasional. Goal to be met by: 07/18/17 Progress towards Goal:: Not Met Penitentiary Goals Goal #1: Pt knows HEP and to continue ex's to maintain functional level at D/C. Goal to be met by: 08/23/17 Progress towards goal: Partially Met Goal #2: Score on Oswestry LBP scale improved to 30. Goal to be met by: 08/23/17 Progress towards goal: Not Met Goal #3: Pt able to sleep with minimal interruption from back or leg pain. Goal to be met by: 08/23/17 Progress towards goal: Not Met Goal #4: Pt will tolerate sitting as needed with minimal back or LE discomfort. Goal to be met by: 08/23/17 Progress towards goal: Not Met Plan Reason for Discharge:: Lack of Progress
== END 2017-08-17 ==
PROVIDERS: ATTEND Pain Medicine Interventional Pain Medicine
DX: M53.3 Sacrococcygeal disorders, not elsewhere classified (principal); M51.36 Other intervertebral disc degeneration, lumbar region; M46.96 Unspecified inflammatory spondylopathy, lumbar region

== ENCOUNTER 2017-08-17 12:32 | Outpatient (CLI) | END 2017-08-17 12:33 | disposition home or self-care (01) | LOC: LAB 12:32 | PROVIDERS: ATTEND Family Medicine | DX: R53.83 Other fatigue (principal) | CPT/HCPCS: 36415; 84443 ==

== ENCOUNTER 2017-08-25 12:46 | Outpatient (CLI) ==
--- NOTE | 2017-08-25 13:24 | CT ---
EXAM: CT of the left knee without contrast History: Left knee pain. Technique: Multiplanar CT images through the left knee were obtained without the administration of I V contrast. Findings: No acute fracture or dislocation. Mild to moderate tricompartmental joint space narrowing with giles nal sclerosis and osteophyte formation. Small to moderate joint effusion. No Gaston's cyst. No radi opaque foreign bodies. Impression: 1. No acute osseous abnormality. 2. Mild to moderate osteoarthritis. 3. Small to moderate joint effusion.
== END 2017-08-25 12:47 | disposition home or self-care (01) ==
LOC: RAD 12:46
PROVIDERS: ATTEND Emergency Medicine
DX: M25.562 Pain in left knee (principal)

== ENCOUNTER 2017-10-13 07:29 | Outpatient (CLI) ==
--- NOTE | 2017-10-13 08:29 | CT ---
EXAM: CT abdomen pelvis without contrast HISTORY: Epigastric pain. Patient with 6 months of food getting stuck with history of gastric sleev e, colon resection and colostomy revision. COMPARISON: CT abdomen pelvis 03/24/2017 and numerous priors TECHNIQUE: Serial axial images of the abdomen pelvis were performed from the lung bases through the inferior pelvis without contrast. These were viewed in multiple planes. FINDINGS: The lung bases are clear. The heart is unremarkable with stable lead wires. Evaluation is limited due to lack of contrast. There is surgical change consistent with a gastric sl eeve. There is a small questionable distal hiatal hernia. The liver is unremarkable. The gallbladd er is distended with no visualized stone, wall thickening or fluid. There is an exophytic low attenu ation lesion off the superior pole of the right kidney measuring 4.4 x 3.7 cm with findings suggestiv e of a cyst. The kidneys are unremarkable. The spleen is unremarkable. The adrenal glands are unre markable. The pancreas is unremarkable. The small bowel in the abdomen and pelvis demonstrates a umbilical hernia containing fat and a loop o f small bowel with no visualized obstruction. The colon demonstrates postsurgical changes distally w ith no visualized stenosis or mass. The colon is otherwise unremarkable. There is fat herniation in to the left-sided ostomy defect. Urinary bladder is mildly distended. The uterus is absent. The oss eous structures demonstrate no acute compression fracture with multilevel degenerative disease. IMPRESSION: 1. No acute intra-abdominal or pelvic process to account for patient's symptoms. 2. Postsurgical changes of a gastric sleeve. 3. Umbilical hernia containing fat and nonobstructing loop of small bowel. There is fat herniation into the left colostomy defect. 4. Postsurgical changes of the distal colon with no evidence of obstruction. 5. Large right renal cyst.
--- NOTE | 2017-10-13 08:37 | DI ---
EXAM: RIGHT HIP, 2 VIEWS HISTORY: Right hip pain FINDINGS: No fracture or joint dislocation. Articular cartilage width is within normal limits for age. Bone density and soft tissues are within normal limits. IMPRESSION: Within normal limits.
--- NOTE | 2017-10-13 09:00 | DI ---
EXAM: Fluoroscopic esophagram HISTORY: Dysphagia with history of gastric sleeve. COMPARISON: Same day CT abdomen pelvis FINDINGS: Real time fluoroscopic evaluation demonstrates a normal stripping wave. There are signific ant tertiary waves of the distal esophagus present. There is a questionable small hiatal hernia pres ent. There is no leak, filling defect or stenosis identified. The stomach is normal in appearance g iven history of gastric sleeve. Mild reflux was noted. IMPRESSION: 1. Gastric sleeve surgical changes are present with no area of stenosis or definitive fluoroscopic a bnormality. 2. Distal tertiary esophageal waves consistent with dysmotility. 3. Mild gastroesophageal reflux with questionable small hernia.
== END 2017-10-13 07:30 | disposition home or self-care (01) ==
LOC: RAD 07:29
PROVIDERS: ATTEND Emergency Medicine
DX: M25.551 Pain in right hip (principal); R10.13 Epigastric pain; R13.14 Dysphagia, pharyngoesophageal phase

== ENCOUNTER 2017-10-16 07:04 | Outpatient (CLI) ==
--- NOTE | 2017-10-16 08:34 | US ---
EXAM: Renal ultrasound. History: Follow-up right renal cyst. Comparison: Renal ultrasound 12/10/2015 Technique: Multiple sonographic images through the kidneys were obtained. Color duplex Doppler was used to interrogate vascular flow. Findings: The right kidney measures 10.3 cm in long length demonstrating normal cortical echogenicity without e vidence for hydronephrosis or shadowing calculus. 3.9 cm anechoic cyst within the superior pole of t he right kidney is not significantly changed compared to the prior study given differences in techniq ue. The left kidney measures 10.0 cm in long length demonstrating normal cortical echogenicity without ev idence for hydronephrosis, mass or shadowing calculus. The visualized bladder demonstrates no gross abnormality. Impression: No significant interval change in the simple right renal cyst.
== END 2017-10-16 07:05 | disposition home or self-care (01) ==
LOC: RAD 07:04
PROVIDERS: ATTEND Emergency Medicine
DX: N28.1 Cyst of kidney, acquired (principal)
CPT/HCPCS: 76770

== ENCOUNTER 2017-11-30 11:42 | Outpatient (CLI) ==
--- NOTE | 2017-11-30 12:04 | DI ---
EXAM: Chest two views HISTORY: Upper respiratory infection FINDINGS: Normal cardiac and mediastinal contours. Normal pulmonary vasculature. Lungs are clear. No significant abnormality of the bony thorax. Left chest wall dual chamber pacemaker. IMPRESSION: Left approach pacemaker. Negative exam otherwise.
== END 2017-11-30 11:43 | disposition home or self-care (01) ==
LOC: RAD 11:42
PROVIDERS: ATTEND Emergency Medicine
DX: J06.9 Acute upper respiratory infection, unspecified (principal)

== ENCOUNTER 2017-12-04 16:31 | Outpatient (CLI) ==
--- NOTE | 2017-12-04 16:51 | DI ---
Exam: Two x-rays of the thoracolumbar spine. Comparison: CT lumbar spine performed 12/26/2016. Chest x-ray performed 11/30/2017. Reason for exam: Dorsalgia unspecified. FINDINGS: Image interpretation is limited by summation artifact in the thoracic spine. No obvious v ertebral body height loss is seen although evaluation is limited by positioning. Operative changes a re seen after implanted intracardiac device placement. There is exaggeration of the thoracic kyphoti c curve with osteophyte formation. Impression: 1. No obvious fracture or listhesis in the thoracolumbar spine although evaluation is limited by sum mation artifact and positioning. If clinical suspicion is high, CT imaging may be performed for furth er characterization. 2. Multilevel degenerative disease with intervertebral body disc space height narrowing and osteophy te formation
== END 2017-12-04 16:32 | disposition home or self-care (01) ==
LOC: RAD 16:31
PROVIDERS: ATTEND Emergency Medicine
DX: M54.9 Dorsalgia, unspecified (principal)

== ENCOUNTER 2017-12-18 13:24 | Outpatient (CLI) ==
--- NOTE | 2017-12-18 16:06 | DI ---
Exam: Four x-rays of the left knee. Comparison: Left knee CT performed 08/25/2017. Reason for exam: Pain in left knee. FINDINGS: No acute fracture or dislocation. Degenerative disease is seen with mild joint space narr owing and osteophyte formation. There is a small joint effusion. No unexplained calcific soft tissu e density or radiopaque retained foreign body. Impression: No acute fracture or dislocation in the left knee with mild degenerative disease and a small/moderate ly sized effusion.
== END 2017-12-18 13:25 | disposition home or self-care (01) ==
LOC: RAD 13:24
PROVIDERS: ATTEND Emergency Medicine
DX: M25.562 Pain in left knee (principal); G89.29 Other chronic pain

== ENCOUNTER 2018-01-08 15:40 | Outpatient (CLI) | END 2018-01-08 15:41 | disposition home or self-care (01) | LOC: RHC-LAB 15:40 | PROVIDERS: ATTEND Emergency Medicine | DX: E11.9 Type 2 diabetes mellitus without complications (principal); I25.10 Atherosclerotic heart disease of native coronary artery without angina pectoris; G47.30 Sleep apnea, unspecified; Z95.0 Presence of cardiac pacemaker; F33.0 Major depressive disorder, recurrent, mild; E66.9 Obesity, unspecified | CPT/HCPCS: 36415; 80053; 80061; 83036; 84443; 85025 ==

== ENCOUNTER 2018-03-10 17:04 | Inpatient (IN) ==
[2018-03-10] MEDS ORDERED: ZOFRAN 4 MG/2 ML IVP STA ×2 (18:34→20:15)
[2018-03-10] MEDS ORDERED: SODIUM CHLORIDE 1,000 ML IV STA (18:34)
--- NOTE | 2018-03-10 18:36 | ED.PDOC ---
General ED Provider: Dr. ANA WHITE Chief Complaint: Weakness Stated Complaint: 2 day history of feeling poorly with nausea, Dry heaving, weakness. Mild headache Time Seen by Physician: 18:34 Mode of Arrival: Walk-In Information Source: Patient Primary Care Provider: [facility] Nursing and Triage Documentation Reviewed and Agree: Yes Does patient meet sepsis criteria?: No System Inflammatory Response Syndrome: Not Applicable Sepsis Protocol: For patient's 13 years and over: Temp is 96.8 and below OR 101 and greater Pulse >90 BPM Resp >20/minute Acutely Altered Mental Status Are patient's symptoms suggestive of a new infection, such as: -Pneumonia -Skin, Soft Tissue -Endocarditis -UTI -Bone, Joint Infection -Implantable Device -Acute Abdominal Infection -Wound Infection -Meningitis -Blood Stream Catheter Infection -Unknown Miscellaneous Complaint Exam - Complex/Multi-System Complaint/Exam Associated Signs and Symptoms: Reports: Weakness, Nausea, Vomiting Respiratory Distress: None JVD Present: No Tachypnea Present: No Stridor Present: No Abdominal Findings: Present: Normal findings Review of Systems - Review Of Systems Constitutional: Reports: Malaise, Weakness Eyes: Reports: No symptoms Ears, Nose, Mouth, Throat: Reports: No symptoms Respiratory: Reports: No symptoms Cardiac: Reports: No symptoms GI: Reports: Nausea, Vomiting : Reports: No symptoms Musculoskeletal: Reports: No symptoms Skin: Reports: No symptoms Neurological: Reports: No symptoms Endocrine: Reports: No symptoms Hematologic/Lymphatic: Reports: No symptoms All Other Systems: Reviewed and Negative Past Medical History - Past Medical History Previously Healthy: No Endocrine: Reports: DM 2, Hypothyroid Cardiovascular: Reports: Hypertension, CHF, Other (s/p abelation) Respiratory: Reports: COPD Hematological: Reports: Anemia Gastrointestinal: Reports: None Genitourinary: Reports: None Neuro/Psych: Reports: TIA, CVA, Anxiety Musculoskeletal: Reports: Arthritis Cancer: Reports: None Last Menstrual Period: unknown Other Pertinent Past Medical History: FIBROMYALGIA - Surgical History General Surgical History: Reports: Hysterectomy (ablation x 2 &), (x2) , Orthopedic (CARPAL TUNNEL SURG), Gastric Sleeve, Other (colostomy 10/2015 with lyfctnah24/28/2017) - Family History Family History: Reports: Unknown - Social History Smoking Status: Former smoker Hx Substance Use: No Alcohol Screening: None Physical Exam - Physical Exam Appearance: Ill-appearing, Obese Ill-appearing: Moderate Pain Distress: None Eyes: MARYCHUY, EOMI, Conjunctiva clear Neck: Supple Respiratory: Airway patent, Breath sounds clear, Breath sounds equal, Respirations nonlabored Cardiovascular: RRR, Pulses normal, No rub, No murmur GI/: Soft, Nontender, No masses, Bowel sounds normal, No Organomegaly Musculoskeletal: Normal strength Skin: Warm, Dry, Normal color Neurological: Sensation intact, Motor intact, Reflexes intact, Cranial nerves intact, Alert, Oriented Psychiatric: Anxious Interpretation - Radiology Interpretation Radiology Interpretation By: Radiologist Radiology Results: Positive Exam Interpreted: CT Scan (mild anterior compression fracture T9) Physician Notification - Case Discussed Physician Notified: Kianna Time of Notification: 19:49 (Admit to Telemetry) Critical Care Note - Critical Care Note Total Time (mins): 40 Course - Course Hematology/Chemistry: 03/10/18 18:40 03/10/18 18:40 Orders, Labs, Meds: Lab Review 03/10/18 03/10/18 03/10/18 18:40 18:40 18:40 WBC 10.47 H RBC 4.57 Hgb 11.7 L Hct 36.8 L MCV 80.5 L MCH 25.6 L MCHC 31.8 RDW Coeff of Gisselle 14.1 Plt Count 311 Immature Gran % (Auto) 0.4 Neut % (Auto) 74.3 Lymph % (Auto) 17.4 [place] % (Auto) 6.3 Eos % (Auto) 0.8 Baso % (Auto) 0.8 Immature Gran # (Auto) 0.0 Neut # (Auto) 7.8 H Lymph # (Auto) 1.8 [place] # (Auto) 0.7 Eos # (Auto) 0.1 Baso # (Auto) 0.1 Sodium 136 Potassium 2.1 L* Chloride 85 L Carbon Dioxide 37 H Anion Gap 16.1 BUN 20 H Creatinine 0.81 Estimated GFR (MDRD) 73.00 BUN/Creatinine Ratio 24.69 Glucose 118 H Calcium 10.0 Magnesium 2.2 Total Bilirubin 0.4 AST 22 ALT 18 Alkaline Phosphatase 80 Total Protein 7.8 Albumin 3.4 Globulin 4.4 Albumin/Globulin Ratio 0.77 Amylase 36 Lipase 26 Orders Category Date Time Status ADMIT PATIENT INPATIENT .TO [facility] (MONITORED BED) ADMISSION 03/10/18 19: 49 Active TELEMETRY MONITORING TELE CARE 03/10/18 19:50 Active ED IV/MEDIPORT/POWERPORT .ONCE EMERGENCY 03/10/18 18:34 Active AMYLASE Stat LAB 03/10/18 18:40 Completed CBC W/ AUTO DIFF Stat LAB 03/10/18 18:40 Completed COMPREHENSIVE METABOLIC PANEL Stat LAB 03/10/18 18:40 Completed LIPASE Stat LAB 03/10/18 18:40 Completed MAGNESIUM Stat LAB 03/10/18 18:40 Completed URINALYSIS C & S IF INDICATED Stat LAB 03/10/18 23:50 Completed 0.9 % Sodium Chloride [Saline Flush] MEDS 03/10/18 18:34 Ordered 1 syr IVF PRN PRN Ondansetron HCl/Pf [Zofran 4 mg/2 ml] MEDS 03/10/18 18:34 Discontinued 4 mg IVP ONCE STA Potassium Chloride in 0.9%NaCl [Sodium Chloride 0.9%- MEDS 03/10/18 19:47 Discontinued KCl 20 Meq] 1,000 ml IV 250 mls/hr Sodium Chloride 0.9% [Sodium Chloride] 1,000 ml MEDS 03/10/18 18:[address] ABD/PEL WO RENAL STONE PROT Stat RADS 03/10/18 18:34 Completed Medications Generic Name Dose Route Start Last Admin Trade Name Freq PRN Reason Stop Dose Admin Atorvastatin Calcium 20 mg 03/11/18 09:00 Lipitor PO DAILY FRANKIE Chlordiazepoxide HCl 25 mg 03/11/18 09:00 Librium PO DAILY FRANKIE Citalopram Hydrobromide 20 mg 03/11/18 09:00 Celexa PO DAILY FRANKIE Enoxaparin Sodium 40 mg 03/11/18 09:00 Lovenox SUBCUT DAILY FRANKIE Potassium Chloride/Sodium Chloride 1,000 mls @ 125 mls/hr 03/10/18 20:30 22:44 Sodium Chloride 0.9%-Kcl 20 Meq IV 125 mls/hr .Q8H FRANKIE Administration Potassium Chloride 10 meq/ 100 mls @ 100 mls/hr 03/10/18 22:36 03/11/18 00:24 Sterile Water IV 03/10/18 23:35 100 mls/hr ONCE STA Administration Ketorolac Tromethamine 30 mg 03/10/18 21:58 03/10/18 22:22 Toradol IVP 30 mg Q6H PRN Administration Pain Levothyroxine Sodium 50 mcg 03/11/18 06:30 Synthroid PO QDAC COUNTS INCLUDE 234 BEDS AT THE [facility] Metoprolol Tartrate 25 mg 03/11/18 09:00 03/11/18 00:44 Lopressor PO 25 mg BID FRANKIE Administration Multivitamins tab 03/10/18 22:00 Multivitamin Tablet PO d FRANKIE Non-Formulary Medication 50 mg 03/10/18 22:00 Diclofenac Sodium [Diclofenac Sodium] PO TID PRN FRANKIE Non-Formulary Medication 600 mg 03/11/18 09:00 Gabapentin [Gabapentin] PO BID FRANKIE Non-Formulary Medication 1 each 03/11/18 09:00 Iron,Carb/Vit C/Vit B12/Folic [Iron 100 Plus Tablet] PO TID FRANKIE Non-Formulary Medication 0.75 mg 03/11/18 09:00 Pramipexole Di-Hcl [Mirapex] PO DAILY COUNTS INCLUDE 234 BEDS AT THE [facility] Non-Formulary Medication 240 mg 03/10/18 22:00 Verapamil Hcl [Verapamil Er] PO d COUNTS INCLUDE 234 BEDS AT THE [facility] Ondansetron HCl 4 mg 03/10/18 20:16 Zofran 4 Mg/2 Ml IVP Q6H PRN Nausea / Vomiting Potassium Chloride 20 meq 03/10/18 20:30 03/10/18 22:13 K-Dur PO 20 meq BIDWM FRANKIE Administration Ranitidine HCl 150 mg 03/11/18 09:00 Zantac PO BID FRANKIE Ropinirole HCl 1 mg 03/11/18 01:00 03/11/18 00:44 Requip PO 1 mg DAILY FRANKIE Administration Sodium Chloride 1 syr 03/10/18 18:34 Saline Flush IVF PRN PRN To flush IV Sucralfate 1 gm 03/11/18 06:30 Carafate PO AC COUNTS INCLUDE 234 BEDS AT THE [facility] Tramadol HCl 50 mg 03/10/18 22:00 Ultram PO BID PRN FRANKIE Discontinued Medications Generic Name Dose Route Start Last Admin Trade Name Freq PRN Reason Stop Dose Admin Sodium Chloride 1,000 mls @ 1,000 mls/hr 03/10/18 18:34 03/10/18 19:09 Sodium Chloride IV 03/10/18 19:33 1,000 mls/hr BOLUS STA Administration Potassium Chloride/Sodium Chloride 1,000 mls @ 250 mls/hr 03/10/18 19:47 19:48 Sodium Chloride 0.9%-Kcl 20 Meq IV 03/10/18 23:46 250 mls/hr .Q4H STA Administration Potassium Chloride 10 meq/ 100 mls @ 100 mls/hr 03/10/18 20:12 03/10/18 22:15 Sterile Water IV 03/10/18 21:11 100 mls/hr ONCE STA Administration Potassium Chloride 10 meq/ 100 mls @ 100 mls/hr 03/10/18 20:13 03/10/18 22:45 Sterile Water IV 03/10/18 21:12 100 mls/hr ONCE STA Administration Ondansetron HCl 4 mg 03/10/18 18:34 03/10/18 19:09 Zofran 4 Mg/2 Ml IVP 03/10/18 18:35 4 mg ONCE STA Administration Ondansetron HCl 4 mg 03/10/18 20:15 03/10/18 22:18 Zofran 4 Mg/2 Ml IVP 03/10/18 20:16 4 mg ONCE STA Administration Vital Signs: Temp Pulse Resp BP Pulse Ox 03/10/18 17:05 99.0 F 72 20 137/80 95 Departure - Departure Time of Disposition: 19:47 Disposition: ADMITTED INPATIENT Discharge Problem: Muscle weakness, Hypokalemia, Dehydration, Compression fracture Condition: Stable Pt referred to PMD for follow-up: No IPMP verified?: No Allergies/Adverse Reactions: Allergies adhesive Allergy (Severe, Verified 03/10/18 17:15) Rash doxepin HCl [From S[place]quan] Adverse Reaction (Verified 03/10/18 17:15) Home Medications: Ambulatory Orders Levothyroxine Sodium [Synthroid] 50 mcg PO QDAC 10/24/16 Gabapentin 600 mg PO BID 03/10/17 Multivitamin [Multi-Vitamin Daily] 1 each PO d 03/10/17 Ibuprofen 600 mg PO Q6HR PRN 03/24/17 Ondansetron HCl [Zofran Tab] 4 mg PO QID PRN #12 tablet 03/24/17 Iron,Carb/Vit C/Vit B12/Folic [Iron 100 Plus Tablet] 1 each PO TID 03/28/17 Verapamil HCl [Verapamil Er] 240 mg PO d 08/21/17 Diclofenac Sodium 50 mg PO TID PRN 11/30/17 Tramadol HCl 50 mg PO BID PRN 11/30/17 Metoprolol Tartrate 25 mg PO BID tab-cap 01/08/18 Ropinirole HCl [Requip] DAILY 03/11/18
[2018-03-10] MEDS ORDERED: POTASSIUM CHLORIDE PREMIX RUN 10 MEQ in PREMIX 100 ML WATER 1 BAG IV STA ×3 (19:20→22:36)
--- NOTE | 2018-03-10 19:28 | CT ---
EXAM: CT abdomen and pelvis without contrast. HISTORY: Abdominal pain and tenderness TECHNIQUE: Multi-slice transaxial helical CT. Coronal and sagittal reformatons were performed. COMPARISON: 10/13/2017. FINDINGS: The heart is mildly enlarged. Pacer leads are present within the heart. Simple cyst in the superior pole of the right kidney measures up to 4.4 cm in size. No hydronephrosi s or renal calculus is seen. Small right-sided renal vascular calcification is suggested. The splee n is normal in size. The gallbladder is on the upper limits of normal in size. No intrahepatic bili melba ductal dilation is seen. The pancreas and the bilateral adrenal glands appear grossly unremarkab le within the confines of a noncontrast exam. The bowel is not dilated. Operative changes of the distal rectum are again seen. Urinary bladder kaylee ears grossly unremarkable. The uterus has been removed. Moderate stool throughout the colon is pres ent. The appendix is not clearly identified. A small hiatal hernia is present. Operative changes o f vertical sleeve gastrectomy is present. Small periumbilical hernia is again seen which contains lo ops of nondilated small bowel and fat. Fat herniates into a left lower quadrant colostomy defect. T he colostomy has been taken down. No pelvic free fluid is seen. Calcified plaques are present within the abdominal aorta. Numerous tiny lymph nodes are seen throughout the abdomen, not significantly c hanged since prior exam. Multilevel lower lumbar facet osteoarthritis is present. A new mild abebe roslyn fracture of T9 is not than previously visualized. Minimal anterior listhesis of L4-L5 is presen t. Minimally displaced fracture at the spinous process of T8 is also seen which appears new. Multilev el lower thoracic endplate osteophytosis is present. IMPRESSION: 1. New mild anterior compression fracture of T9. 2. Minimally displaced fracture of the T8 spinous process. 3. No acute intra-abdominal findings. 4. Small hiatal hernia, left lower quadrant colostomy hernia, and periumbilical hernias as detailed above. 5. Moderate stool throughout the colon. This is nonspecific. Correlate with constipation. 6. Other operative and senescent changes as detailed above.
[2018-03-10] MEDS ORDERED: SODIUM CHLORIDE 0.9%-KCL 20 MEQ 1,000 ML IV STA (19:47)
[2018-03-10] MEDS ORDERED: ZOFRAN 4 MG/2 ML IVP PRN (20:16)
[2018-03-10 21:19] VITALS: BMI 37.5
[2018-03-10] MEDS ORDERED: NON-FORMULARY MEDICATION (Verapamil Hcl [Verapamil Er] 240 MG) PO SCH (22:00)
[2018-03-10] MEDS ORDERED: DICLOFENAC SODIUM 50 MG PO PRN (22:00)
[2018-03-10] MEDS ORDERED: POTASSIUM CHLORIDE PREMIX RUN 100 ML IV ONE ×2 (22:05→23:00)
[2018-03-10] MEDS: K-DUR PO SCH (22:13)
[2018-03-10] MEDS: POTASSIUM CHLORIDE PREMIX RUN 10 MEQ in PREMIX 100 ML WATER 1 BAG IV STA ×2 (22:22→22:45)
[2018-03-10] MEDS: TORADOL IVP PRN (22:22)
[2018-03-10] MEDS: SODIUM CHLORIDE 0.9%-KCL 20 MEQ 1,000 ML IV SCH (22:44)
[2018-03-11] MEDS ORDERED: NEURONTIN ONE (00:41)
[2018-03-11] MEDS: LOPRESSOR PO SCH ×3 (00:44→20:24)
[2018-03-11] MEDS ORDERED: REQUIP PO SCH (01:00)
[2018-03-11] MEDS: SODIUM CHLORIDE 0.9%-KCL 20 MEQ 1,000 ML IV SCH ×2 (05:36→14:00)
[2018-03-11] MEDS: CARAFATE PO SCH ×3 (05:37→16:39)
[2018-03-11] MEDS: SYNTHROID PO SCH (05:37)
[2018-03-11] MEDS ORDERED: K-DUR PO STA ×2 (05:45→16:19)
[2018-03-11] MEDS: CELEXA PO SCH (08:30)
[2018-03-11] MEDS: LIBRIUM PO SCH (08:30)
[2018-03-11] MEDS: CALAN SR PO SCH (08:30)
[2018-03-11] MEDS: NEURONTIN PO SCH ×2 (08:31→20:24)
[2018-03-11] MEDS: ZANTAC PO SCH ×2 (08:31→16:39)
[2018-03-11] MEDS: K-DUR PO SCH ×2 (08:31→17:38)
[2018-03-11] MEDS: LIPITOR PO SCH (08:31)
[2018-03-11] MEDS: MULTIVITAMIN TABLET PO SCH (08:31)
[2018-03-11] MEDS: VIT B12 PO SCH ×3 (08:32→20:32)
[2018-03-11] MEDS: VIT C PO SCH ×3 (08:32→20:32)
[2018-03-11] MEDS: FOLIC PO SCH ×3 (08:32→20:32)
[2018-03-11] MEDS: IRON CARB PO SCH ×3 (08:32→20:32)
[2018-03-11] MEDS: LOVENOX SUBCUT SCH (08:33)
[2018-03-11] MEDS ORDERED: NON-FORMULARY MEDICATION (Gabapentin [Gabapentin] 600 MG) PO SCH (09:00)
[2018-03-11] MEDS ORDERED: PRAMIPEXOLE DI HCL 0.75 MG PO SCH (09:00)
--- NOTE | 2018-03-11 17:09 | CT ---
EXAM: CT thoracic spine without contrast History: Compression deformity TECHNIQUE: Multi-slice transaxial helical with coronal and sagittal reformatted views. Comparison: CT abdomen from previous day. FINDINGS: Acute appearing mild O compression fracture of T9 is again seen. No evidence of retropulsion of fract ure fragment is seen. Mildly displaced fracture of the T8 spinous process is again seen. Otherwise the visualized vertebral body heights appear preserved. Minimal multilevel thoracic disc space narro wing with anterior endplate osteophytosis is seen. No evidence of listhesis is seen. No other thorac ic spine fracture is seen. No critical thoracic central canal stenosis is seen. No significant neur al foraminal narrowing is seen. See previous day abdominal CT for abdominal findings. Pacer leads are present within the heart. Ath erosclerosis is present. Emphysematous changes of the lungs are present. Central airway thickening i s present. No evidence of pleural effusion or pneumothorax is seen. Impression: 1. Mild anterior compression fracture of T9. 2. My displaced T8 spinous process fracture. 3. Minimal/mild multilevel thoracic disc disease. 4. Pulmonary emphysema. 5. Central airway thickening which can be seen with bronchitis.
[2018-03-11] MEDS: TORADOL IVP PRN (17:48)
[2018-03-11] MEDS: REQUIP PO SCH (20:24)
[2018-03-12] MEDS: LIBRIUM PO SCH ×2 (00:33→21:33)
[2018-03-12] MEDS: SODIUM CHLORIDE 0.9%-KCL 20 MEQ 1,000 ML IV SCH ×2 (00:52→14:20)
[2018-03-12] MEDS: SYNTHROID PO SCH (05:46)
[2018-03-12] MEDS: CARAFATE PO SCH ×3 (05:46→16:29)
[2018-03-12] MEDS: ZANTAC PO SCH ×2 (05:46→16:29)
[2018-03-12] MEDS: K-DUR PO SCH ×2 (08:44→16:29)
[2018-03-12] MEDS: MULTIVITAMIN TABLET PO SCH (08:44)
[2018-03-12] MEDS: CALAN SR PO SCH (08:44)
[2018-03-12] MEDS: LIPITOR PO SCH (08:44)
[2018-03-12] MEDS: LOVENOX SUBCUT SCH (08:45)
[2018-03-12] MEDS: IRON CARB PO SCH ×3 (08:45→21:34)
[2018-03-12] MEDS: FOLIC PO SCH ×3 (08:45→21:34)
[2018-03-12] MEDS: CELEXA PO SCH (08:45)
[2018-03-12] MEDS: VIT C PO SCH ×3 (08:45→21:34)
[2018-03-12] MEDS: VIT B12 PO SCH ×3 (08:45→21:34)
[2018-03-12] MEDS: NEURONTIN PO SCH ×2 (08:45→21:33)
[2018-03-12] MEDS: LOPRESSOR PO SCH ×2 (08:45→21:33)
--- NOTE | 2018-03-12 08:47 | HP ---
DATE OF SERVICE: 03/10/18 CHIEF COMPLAINT: Weakness HISTORY OF PRESENT ILLNESS: This is a 58 year old female with multiple medical problems with pacemaker been feeling weak and dizzy for three days and sleeping a lot, feels like she is going to pass out and legs are wobbly. 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 History of pacemaker with rate of 72. She has been sleepy, no diarrhea, been nauseous but no vomiting. She was seen by Dr. Gutierrez in the emergency room at Potassium was 2.1, Chloride 85, bicarb 35, BUN 20. Normal WBC, hgb 11.7, CT of abdomen and pelvis done which did show the compression deformity on the thoracic spine and no acute findings. At that time the patient was admitted to the hospital with severe symptomatic hypokalemia. REVIEW OF SYSTEMS: CONSTITUTIONAL: No fever, no chills. Weakness and tiredness. Lightheadedness, questionable almost passing out. HEENT: Normal. ENDOCRINE: No weight gain; no weight loss. CVS: No chest pain. No PND, no orthopnea. No shortness of breath. No PND, no orthopnea. RESPIRATORY: No cough, no congestion. No hemoptysis. GI: No nausea, no vomiting. No abdominal pain. No melena. : No hematuria. No polyuria. MUSCULOSKELETAL: No joint swelling. Back pain- goes to Pain Management. PSYCHIATRIC: Not anxious. No depression. No suicidal thoughts. No homicidal thoughts. SKIN: Intact, no open lesions. 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 and lives with the . FAMILY HISTORY: Coronary artery disease Diabetes Colon cancer MEDICATIONS: Synthroid Neurontin Vitamin Zofran Ibuprofen Iron tablets Chlordiazepoxide Verapamil Carafate Zantac Tramadol Diclofenac Celexa Mirapex Metoprolol Atorvastatin Lasix Requip ALLERGIES: Adhesive Doxepin PHYSICAL EXAMINATION: V/S: Blood pressure 137/80, respiratory rate 20, heart rate 72, temperature 97.0 with saturation 95%. HEENT: Atraumatic, normocephalic. No scleral icterus. Pallor positive. Mucosa dry NECK: Supple. No JVD, no bruit. No lymphadenopathy. No thyromegaly. HEART: S1, S2 normal. No murmur. No cyanosis or clubbing. No ascites. LUNGS: Clear to auscultation. No rales or rhonchi. ABDOMEN: Soft, nontender. Bowel sounds are active. No CVA tenderness. No rigidity or guarding. EXTREMITIES: No pedal edema. No cyanosis or clubbing MUSCULOSKELETAL: Normal joints, no swelling. NEUROLOGIC: The patient is awake and alert. SKIN: Intact; no open lesions. LYMPHATIC: No lymph nodes palpable. LABS: WBC 10.47, hgb 11.7, hct 36.8, plt count 311, sodium 136, potassium 2.1, chloride 85, bicarb 37, BUN 20, creatinine 0.81, glucose 118 and Magnesium 2.2. Urine negative. CAT scan of abdomen and pelvis no acute findings but showed the thoracic compression deformity. ASSESSMENT: 1. Severe hypokalemia, symptomatic 2. Thoracic compression deformity 3. Coronary artery disease 4. Permanent pacemaker 5. Dizziness 6. History of stroke PLAN: 1. Admit patient to the regular floor 2. CBC and CMP today and daily 3. Cardiac enzymes and Troponin 4. IV fluids with Potassium 5. Zofran for nausea 6. Lovenox for the DVT prophylaxis Will follow the patient in daily rounds. TIME SPENT: MORE THAN 75 minutes MTDD
--- NOTE | 2018-03-12 08:53 | PN ---
DATE OF SERVICE: 03/11/18 SUBJECTIVE: The patient is still complaining about the weakness and tiredness, nausea and lower back pain gradually getting worse. Discussed about the CAT scan findings showing the thoracic compression deformity and we will get a dedicated thoracic spine CAT scan today. Potassium is still 2.6 this morning. We are going to continue the IV Potassium and PO Potassium. REVIEW OF SYSTEMS: CONSTITUTIONAL: No fever, no chills. HEENT: Normal. ENDOCRINE: No weight gain, no weight loss. CVS: No angina symptoms. No CHF symptoms. No palpitations. No atypical chest pain for CAD. No shortness of breath. No PND, no orthopnea. RESPIRATORY: No cough, no hemoptysis. GI: No nausea, no vomiting. No abdominal pain. : No hematuria. No polyuria. MUSCULOSKELETAL: No joint swelling. PSYCHIATRIC: Not anxious. No depression. No suicidal thoughts. No homicidal thoughts. SKIN: Intact. No rash. PHYSICAL EXAMINATION: V/S: Blood pressure 96/56, respiratory 12, heart rate 60, temperature 97.7 with saturation 97% HEENT: Normocephalic, atraumatic. Mucosa dry. Pallor positive. NECK: Supple. No JVD, no carotid bruit. No lymphadenopathy. LUNGS: Clear to auscultation. No rales or rhonchi. HEART: S1, S2 normal. No S3. No murmur, gallop or regurgitation. ABDOMEN: Soft, nontender. Bowel sounds active. No rigidity. No rebound or guarding. No CVA tenderness. EXTREMITIES: No cyanosis, clubbing or pedal edema. MUSCULOSKELETAL: No joint swelling. NEUROLOGIC: Awake, alert, oriented times three. No focal deficit. LYMPHATIC: No lymph nodes palpable. SKIN: Intact. LABS: Sodium 138, potassium 2.6, chloride 93, bicarb 36, BUN 21, creatinine 0.73 and glucose 92, WBC 7.98, hgb 10.4, hct 33.4, plt count 272. ASSESSMENT: 1. Severe hypokalemia 2. Thoracic compression deformity fracture 3. CAD 4. Permanent pacemaker 5. Depression 6. Osteoarthritis 7. DJD spine PLAN: 1. Replace the Potassium 2. Decrease the IV fluids to 70ml per hour 3. CT of the Thoracic spine TIME SPENT: More than 35 minutes MTDD
[2018-03-12] MEDS: REQUIP PO SCH (21:33)
[2018-03-13] MEDS: CARAFATE PO SCH ×3 (05:52→16:50)
[2018-03-13] MEDS: ZANTAC PO SCH ×2 (05:52→16:50)
[2018-03-13] MEDS: SYNTHROID PO SCH (05:52)
[2018-03-13] MEDS ORDERED: LOMOTIL PO STA ×2 (08:29)
[2018-03-13] MEDS: MULTIVITAMIN TABLET PO SCH (09:08)
[2018-03-13] MEDS: CALAN SR PO SCH (09:09)
[2018-03-13] MEDS: LOPRESSOR PO SCH ×2 (09:10→20:37)
[2018-03-13] MEDS: NEURONTIN PO SCH ×2 (09:10→20:34)
[2018-03-13] MEDS: CELEXA PO SCH (09:10)
[2018-03-13] MEDS: K-DUR PO SCH ×2 (09:10→16:49)
[2018-03-13] MEDS: LIPITOR PO SCH (09:10)
[2018-03-13] MEDS: LOVENOX SUBCUT SCH (09:11)
[2018-03-13] MEDS: VIT B12 PO SCH ×3 (09:13→20:38)
[2018-03-13] MEDS: FOLIC PO SCH ×3 (09:13→20:38)
[2018-03-13] MEDS: IRON CARB PO SCH ×3 (09:13→20:38)
[2018-03-13] MEDS: VIT C PO SCH ×3 (09:13→20:38)
[2018-03-13] MEDS: ULTRAM PO PRN ×2 (09:47→20:34)
[2018-03-13] MEDS: LIBRIUM PO SCH (20:34)
[2018-03-13] MEDS: REQUIP PO SCH (20:35)
[2018-03-14] MEDS: SYNTHROID PO SCH (05:45)
[2018-03-14] MEDS: ZANTAC PO SCH (05:45)
[2018-03-14] MEDS: CARAFATE PO SCH ×3 (05:45→16:47)
[2018-03-14] MEDS: LIPITOR PO SCH (08:26)
[2018-03-14] MEDS: MULTIVITAMIN TABLET PO SCH (08:27)
[2018-03-14] MEDS: CALAN SR PO SCH (08:27)
[2018-03-14] MEDS: K-DUR PO SCH ×2 (08:27→16:47)
[2018-03-14] MEDS: NEURONTIN PO SCH ×2 (08:27→20:47)
[2018-03-14] MEDS: IRON CARB PO SCH ×3 (08:28→20:57)
[2018-03-14] MEDS: CELEXA PO SCH (08:28)
[2018-03-14] MEDS: VIT B12 PO SCH ×3 (08:28→20:57)
[2018-03-14] MEDS: VIT C PO SCH ×3 (08:28→20:57)
[2018-03-14] MEDS: FOLIC PO SCH ×3 (08:28→20:57)
[2018-03-14] MEDS: LOVENOX SUBCUT SCH (08:31)
[2018-03-14] MEDS ORDERED: LASIX IVP STA (08:32)
[2018-03-14] MEDS: LOPRESSOR PO SCH ×2 (08:36→20:47)
[2018-03-14] MEDS: PROTONIX PO SCH ×2 (08:41→16:47)
--- NOTE | 2018-03-14 09:42 | PN ---
DATE OF SERVICE: 03/13/18 SUBJECTIVE: The patient was admitted initially for the severe symptomatic hypokalemia. Potassium been better but now she started having the severe diarrhea almost 8 bowel movements, watery and some abdominal cramping. REVIEW OF SYSTEMS: CONSTITUTIONAL: No fever, no chills. HEENT: Normal. ENDOCRINE: No weight gain, no weight loss. CVS: No angina symptoms. No CHF symptoms. No palpitations. No atypical chest pain for CAD. No shortness of breath. No PND, no orthopnea. RESPIRATORY: No cough, no hemoptysis. GI: No nausea, no vomiting. No abdominal pain. : No hematuria. No polyuria. MUSCULOSKELETAL: No joint swelling. PSYCHIATRIC: Not anxious. No depression. No suicidal thoughts. No homicidal thoughts. SKIN: Intact. No rash. PHYSICAL EXAMINATION: V/S: Blood pressure 123/67, respiratory rate 16, heart rate 94, temperature 97.8 with saturation 99%. HEENT: Normocephalic, atraumatic. Mucosa dry. Pallor positive. No icterus. NECK: Supple. No JVD, no carotid bruit. No lymphadenopathy. LUNGS: Clear to auscultation. No rales or rhonchi. HEART: S1, S2 normal. No S3. No murmur, gallop or regurgitation. ABDOMEN: Soft, nontender. Bowel sounds active. No rigidity. No rebound or guarding. No CVA tenderness. EXTREMITIES: No cyanosis, clubbing or pedal edema. MUSCULOSKELETAL: No joint swelling. NEUROLOGIC: Awake, alert, oriented times three. No focal deficit. LYMPHATIC: No lymph nodes palpable. SKIN: Intact. LABS: WBC 6.96, hgb 9.8, hct 32.0, plt count 247, sodium 141, potassium 3.8, chloride 107, bicarb 27, BUN 11, creatinine 0.62 and glucose 76. ASSESSMENT: 1. Acute diarrhea 2. Dehydration 3. Severe Hypokalemia 4. CAD status post permanent pacemaker 5. Hypertension 6. Dyslipidemia 7. Osteoarthritis 8. DJD spine PLAN: 1. Lomatol PRN 2. Continue IV fluids 3. Out of bed to chair activity as tolerated TIME SPENT: More than 35 minutes MTDD
--- NOTE | 2018-03-14 12:47 | PN ---
DATE OF SERVICE: 03/12/18 SUBJECTIVE: The patient was admitted with severe hypokalemia. The patient is still feeling weak and tired. Hgb dropped from the 11.7 to 9.0 most likely from the hemodilution. Advised walking and getting out of the bed. REVIEW OF SYSTEMS: CONSTITUTIONAL: No fever, no chills. HEENT: Normal. ENDOCRINE: No weight gain, no weight loss. CVS: No angina symptoms. No CHF symptoms. No palpitations. No atypical chest pain for CAD. No shortness of breath. No PND, no orthopnea. RESPIRATORY: No cough, no hemoptysis. GI: No nausea, no vomiting. No abdominal pain. : No hematuria. No polyuria. MUSCULOSKELETAL: No joint swelling. PSYCHIATRIC: Not anxious. No depression. No suicidal thoughts. No homicidal thoughts. SKIN: Intact. No rash. PHYSICAL EXAMINATION: V/S: blood pressure 107/65, respiratory rate 20, heart rate 85, temperature 98.7 with saturation 99%. HEENT: Normocephalic, atraumatic. Mucosa dry. NECK: Supple. No JVD, no carotid bruit. No lymphadenopathy. LUNGS: Clear to auscultation. No rales or rhonchi. HEART: S1, S2 normal. No S3. No murmur, gallop or regurgitation. ABDOMEN: Soft, nontender. Bowel sounds active. No rigidity. No rebound or guarding. No CVA tenderness. EXTREMITIES: No cyanosis, clubbing or pedal edema. MUSCULOSKELETAL: No joint swelling. NEUROLOGIC: Awake, alert, oriented times three. No focal deficit. LYMPHATIC: No lymph nodes palpable. SKIN: Intact. LABS: Sodium 138, potassium 3.0, chloride 104, bicarb 28, BUN 16, creatinine 0.60 and WBC 5.33, hgb 9.0, hct 29.3, plt count 215 ASSESSMENT: 1. Severe hypokalemia 2. Anemia from hemodilution 3. Coronary artery disease 4. Permanent pacemaker 5. Hypertension 6. Dyslipidemia 7. History of partial colectomy 8. Reversal of the colostomy bag. PLAN: 1. Continue the IV fluids 2. Out of bed to chair activity as tolerated Will follow the patient in daily rounds. TIME SPENT: More than 35 minutes MTDD
[2018-03-14] MEDS: REQUIP PO SCH (20:47)
[2018-03-14] MEDS: LIBRIUM PO SCH (20:56)
[2018-03-14] MEDS: TORADOL IVP PRN (21:08)
[2018-03-15] MEDS: PROTONIX PO SCH (05:33)
[2018-03-15] MEDS: SYNTHROID PO SCH (05:33)
[2018-03-15] MEDS: CARAFATE PO SCH ×2 (05:33→10:59)
[2018-03-15] MEDS: CALAN SR PO SCH (08:19)
[2018-03-15] MEDS: NEURONTIN PO SCH (08:19)
[2018-03-15] MEDS: LIPITOR PO SCH (08:20)
[2018-03-15] MEDS: MULTIVITAMIN TABLET PO SCH (08:20)
[2018-03-15] MEDS: LOPRESSOR PO SCH (08:20)
[2018-03-15] MEDS: CELEXA PO SCH (08:20)
[2018-03-15] MEDS: K-DUR PO SCH (08:20)
[2018-03-15] MEDS: IRON CARB PO SCH (08:26)
[2018-03-15] MEDS: FOLIC PO SCH (08:26)
[2018-03-15] MEDS: VIT B12 PO SCH (08:26)
[2018-03-15] MEDS: VIT C PO SCH (08:26)
[2018-03-15] MEDS: LOVENOX SUBCUT SCH (08:27)
[2018-03-15 14:06] VITALS: BP 99/56; TEMP 98.2
--- NOTE | 2018-03-16 13:00 | PN ---
DATE OF SERVICE: 03/14/18 SUBJECTIVE: The patient was admitted with severe hypokalemia. Hgb has now dropped to 8.8 from 11.7 almost 3 grams. The patient still having diarrhea with no nausea or vomiting. The patient is feeling weak, dizzy and lightheaded. REVIEW OF SYSTEMS: CONSTITUTIONAL: No fever, no chills. HEENT: Normal. ENDOCRINE: No weight gain, no weight loss. CVS: No angina symptoms. No CHF symptoms. No palpitations. No atypical chest pain for CAD. No shortness of breath. No PND, no orthopnea. RESPIRATORY: No cough, no hemoptysis. GI: No nausea, no vomiting. No abdominal pain. : No hematuria. No polyuria. MUSCULOSKELETAL: No joint swelling. PSYCHIATRIC: Not anxious. No depression. No suicidal thoughts. No homicidal thoughts. SKIN: Intact. No rash. PHYSICAL EXAMINATION: V/S: Blood pressure 101/61, respiratory rate 18, heart rate 62, temperature 98.9 with saturation 98%. HEENT: Normocephalic, atraumatic. Mucosa dry. Pallor positive. NECK: Supple. No JVD, no carotid bruit. No lymphadenopathy. LUNGS: Clear to auscultation. No rales or rhonchi. HEART: S1, S2 normal. No S3. Systolic murmur, gallop or regurgitation. ABDOMEN: Soft, nontender. Bowel sounds active. No rigidity. No rebound or guarding. No CVA tenderness. EXTREMITIES: No cyanosis, clubbing or pedal edema. MUSCULOSKELETAL: No joint swelling. NEUROLOGIC: Awake, alert, oriented times three. No focal deficit. LYMPHATIC: No lymph nodes palpable. SKIN: Intact. LABS: Sodium 142, potassium 4.0, chloride 109, bicarb 25, BUN 10, creatinine 0.59 and glucose 81. WBC 5.55, hgb 8.8, hct 38.7, plt count 232. ASSESSMENT: 1. Anemia rule out GI bleed 2. Severe hypokalemia which is better 3. Light headedness 4. History of CAD 5. Hypertension 6. Permanent pacemaker 7. Depression 8. T9 compression deformities. PLAN: 1. Anemia profile 2. Protonix 40mg PO twice a day 3. H&H in the morning 4. IV fluids being stopped two days ago. TIME SPENT: More than 35 minutes MTDD
--- NOTE | 2018-04-18 09:50 | DS ---
DATE OF SERVICE: 03/15/18 FINAL DIAGNOSIS: 1. Hypokalemia which is improved 2. Dehydration, better 3. Status post acute gastroenteritis 4. Anemia 5. Compression fracture T9 mild anterior 6. Pulmonary emphysema per CT scan 7. Hypothyroidism 8. Hiatal hernia 9. Former smoker 10.Depression 11.Coronary artery disease 12.Status post permanent pacemaker 13.Restless leg syndrome 14.Rotator cuff repair 15.Gastric sleeve surgery 16.Hysterectomy 17.Bowel resection with colostomy 18. Reversal on colostomy. DISCHARGE INSTRUCTIONS: Discharge the patient home. Followup in the [facility] within 5-7 days. An appointment will be scheduled with Blane Burgos on March 29 for the back. Followup in the [facility] on March 22. Continue the rest of the home medications. MEDICATIONS AT DISCHARGE: Lipitor Librium Citalopram Lasix Neurontin Mobic Potassium Mirapex Prednisone Carafate Ibuprofen Diclofenac Iron tablet Levothyroxine Metoprolol Multivitamin Protonix Tramadol Verapamil Zofran NEW PRESCRIPTIONS: Potassium 20meq PO daily DIET INSTRUCTIONS: Cardiac and healthy ACTIVITY: As much as tolerated DISEASE SPECIFIC EDUCATION: Dehydration Hypokalemia Gastroenteritis Dehydration Been discussed and verbalized understanding. HOSPITAL COURSE: Dakota Bryant who is a 58 year old female with multiple medical problems came to the office with the diarrhea, nausea, vomiting and not able to keep anything down and the Potassium was 2.1. She came to the emergency room and admitted from the emergency room to the hospital. Potassium was 2.1, severe hypokalemia. CT of abdomen and pelvis which showed compression deformity on the thoracic spine but small hiatal hernia and moderate stool throughout the colon and no acute findings. At that time the patient was admitted for the hypokalemia and Potassium been replaced. Potassium went up from 2.1 to 2.6 and Magnesium was 2.2 then to 2.8 and 3.7 which stayed steady. Hgb dropped from 11.7 to 8.8 mostly from the hemodilution. Urine was negative. Thoracic vertebral CAT scan was done which did show the compression deformity. The patient does have back pain which goes with mild anterior compression deformity and mildly displaced T8 spinous process fracture. As the patient been feeling better and diarrhea been stopped, been up and about walking and did not have any problems during the hospital stay at that time she is being discharged home. TIME SPENT: MORE THAN 65 MINUTES MTDD
== END 2018-03-15 15:03 | disposition home or self-care (01) | DRG 641 ==
LOC: ED 17:04 → MEDSURG A 19:56
PROVIDERS: ADMIT Emergency Medicine; ATTEND Emergency Medicine
DX: E87.6 Hypokalemia (principal); M48.54XA Collapsed vertebra, not elsewhere classified, thoracic region, initial encounter for fracture; M54.9 Dorsalgia, unspecified; E86.0 Dehydration; E03.9 Hypothyroidism, unspecified; R11.2 Nausea with vomiting, unspecified; R51 Headache; R42 Dizziness and giddiness; K52.9 Noninfective gastroenteritis and colitis, unspecified; K44.9 Diaphragmatic hernia without obstruction or gangrene; D64.9 Anemia, unspecified; J43.8 Other emphysema; F32.9 Major depressive disorder, single episode, unspecified; I25.10 Atherosclerotic heart disease of native coronary artery without angina pectoris; G25.81 Restless legs syndrome; Z95.0 Presence of cardiac pacemaker
CPT/HCPCS: 36415; 74176; 80048; 80053; 81001; 82150; 82607; 82728; 82746; 83540; 83550; 83690; 83735; 84466; 85025; 85045; 93005; 93010; 96360; 99284; 99285

== ENCOUNTER 2018-03-22 10:35 | Outpatient (CLI) | payer OTHER | END 2018-03-22 10:36 | disposition home or self-care (01) | LOC: RHC-LAB 10:35 | PROVIDERS: ATTEND Emergency Medicine | DX: I25.10 Atherosclerotic heart disease of native coronary artery without angina pectoris (principal); E11.9 Type 2 diabetes mellitus without complications | CPT/HCPCS: 36415; 80053 ==

== ENCOUNTER 2018-05-11 14:09 | Outpatient (CLI) ==
--- NOTE | 2018-05-11 15:23 | DI ---
EXAM: Three views of the bilateral sacroiliac joints. History: Lower back pain and pelvic pain. Findings: Degenerative changes are seen within the lower lumbar spine. No acute fracture or disloca tion. Bilateral sacroiliac joints are intact with no significant sclerosis and no erosive osseous ch anges. Impression: 1. Intact bilateral sacroiliac joints. 2. Degenerative changes within the lower lumbar spine.
--- NOTE | 2018-05-11 15:26 | DI ---
EXAM: Five views of the lumbar spine. History: Lower back pain. Comparison: Lumbar spine radiograph 12/04/2017 Findings: Moderate to large amount of colonic stool. Surgical clips seen within the upper abdomen. Osteopenia. Kyphoplasty seen and T9. No change in the grade 1 anterolisthesis of L4 on L5. No lisa nge in the multilevel degenerative disc space narrowing which is moderate to severe at L5-S1. No lisa nge in the moderate to severe facet hypertrophy within the lower lumbar spine. Atherosclerotic vascul ar calcifications. Impression: 1. No definite acute fractures are seen. 2. T9 kyphoplasty. 3. Grade 1 anterolisthesis of L4 on L5 is unchanged. 4. Degenerative changes. 5. Osteopenia. 6. Atherosclerotic vascular disease. 7. [id number] amount colonic stool.
== END 2018-05-11 14:10 | disposition home or self-care (01) ==
LOC: RAD 14:09
PROVIDERS: ATTEND Pain Medicine Interventional Pain Medicine
DX: I25.10 Atherosclerotic heart disease of native coronary artery without angina pectoris (principal); D50.0 Iron deficiency anemia secondary to blood loss (chronic); Z95.0 Presence of cardiac pacemaker; M99.63 Osseous and subluxation stenosis of intervertebral foramina of lumbar region; M51.36 Other intervertebral disc degeneration, lumbar region; M51.37 Other intervertebral disc degeneration, lumbosacral region; M43.16 Spondylolisthesis, lumbar region; M47.816 Spondylosis without myelopathy or radiculopathy, lumbar region; M47.817 Spondylosis without myelopathy or radiculopathy, lumbosacral region; M46.1 Sacroiliitis, not elsewhere classified; M79.1 Myalgia; M79.7 Fibromyalgia; M15.0 Primary generalized (osteo)arthritis; M81.8 Other osteoporosis without current pathological fracture; G25.81 Restless legs syndrome
CPT/HCPCS: 36415; 80053; 85025

== ENCOUNTER 2018-05-18 12:31 | Outpatient (CLI) | END 2018-05-18 12:32 | disposition home or self-care (01) | LOC: LAB 12:31 | PROVIDERS: ATTEND Emergency Medicine | DX: I25.10 Atherosclerotic heart disease of native coronary artery without angina pectoris (principal); E83.52 Hypercalcemia | CPT/HCPCS: 36415; 80053; 83970 ==

== ENCOUNTER 2018-08-07 15:48 | Outpatient (CLI) | END 2018-08-07 15:49 | disposition home or self-care (01) | LOC: FCC-LAB 15:48 | PROVIDERS: ATTEND Nurse Practitioner Family | DX: E87.6 Hypokalemia (principal); R60.0 Localized edema; I25.10 Atherosclerotic heart disease of native coronary artery without angina pectoris; E11.9 Type 2 diabetes mellitus without complications; E03.9 Hypothyroidism, unspecified | CPT/HCPCS: 36415; 80048; 83735; 84443; 85025 ==

== ENCOUNTER 2019-02-12 16:28 | Outpatient (CLI) | END 2019-02-12 16:29 | disposition home or self-care (01) | LOC: LAB 16:28 | PROVIDERS: ATTEND Nurse Practitioner Family | DX: I50.22 Chronic systolic (congestive) heart failure (principal); Z79.899 Other long term (current) drug therapy | CPT/HCPCS: 36415; 80053; 83880; 85008; 85025 ==

== ENCOUNTER 2019-02-22 10:14 | Outpatient (CLI) | END 2019-02-22 10:15 | disposition home or self-care (01) | LOC: RHC-LAB 10:14 → FCC-LAB 10:15 | PROVIDERS: ATTEND Family Medicine | DX: D50.9 Iron deficiency anemia, unspecified (principal); I50.22 Chronic systolic (congestive) heart failure; E03.9 Hypothyroidism, unspecified | CPT/HCPCS: 36415; 80053; 84443; 85008; 85025 ==

== ENCOUNTER 2023-05-15 13:28 | Observation (INO) ==
[2023-05-15] MEDS ORDERED: HYDRALAZINE HCL IVP STA (14:11)
[2023-05-15] MEDS ORDERED: POTASSIUM CHL 10% ORAL SOL PO STA (14:11)
[2023-05-15] MEDS ORDERED: ZOFRAN 4 MG/2 ML IVP STA (14:12)
--- NOTE | 2023-05-15 14:26 | ED.PDOC ---
General ED Provider: Dr. DANAY FLORES MD Chief Complaint: Abnormal Labs Stated Complaint: low potassium/covid positive Time Seen by Provider: 05/15/23 14:13 Information Source: Patient Primary Care Provider: JAGDEEP NICHOLS APRN Referred to ED by: PCP Nursing and Triage Documentation Reviewed and Agree: Yes Respiratory Complaint Exam Shortness of Air Complaint/Exam Onset/Duration: one day Symptoms Are: Resolved Timing: Intermittent Initial Severity: Mild Current Severity: None Character: Reports Dyspnea on exertion Review of Systems Review Of Systems Constitutional: Reports Malaise and Weakness All Other Systems: Reviewed and Negative [facility] Medical History Depression F32.9 - Major depressive disorder, single episode, unspecified (ICD-10) Diverticulosis K57.90 - Diverticulosis of intestine, part unspecified, without perforation or abscess without bleeding (ICD-10) Heart disease I51.9 - Heart disease, unspecified (ICD-10) Hiatal hernia K44.9 - Diaphragmatic hernia without obstruction or gangrene (ICD-10) Hypertension I10 - Essential (primary) hypertension (ICD-10) Hypothyroidism E03.9 - Hypothyroidism, unspecified (ICD-10) Restless legs syndrome G25.81 - Restless legs syndrome (ICD-10) Family History Mother Cardiac disease Hyperlipidemia Hypertension FATHER Diabetes Hyperlipidemia Hypertension Grandfather/Grandmother Cardiac disease Cerebrovascular accident Other Colon cancer Social History Smoking and tobacco status: Former smoker Tobacco: How many years used: 9 How long ago did patient quit smokin years ago Second hand smoke exposure: No Smoking risk assessment performed: Yes Alcohol intake: current Alcohol intake frequency: other Alcohol type: wine Counseling given: No Substance use type: does not use Counseling given: No Yvonne/protestant: HINDU Special yvonne needs: No Agree to transfusion: Yes Adopted: No Caregiver/support person: Yes (Works for [employer] ) Foster care: No Household members: none Housing: apartment Marital status: D Lives independently: Yes Number of children: 2 Number of grandchildren: 4 Highest education level completed: GED or equivalent Financial difficulty paying for basics: somewhat hard service: No FDC: No Current occupational status: employed and unemployed Current occupational exposures/hazards: No 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 [employer] Pets and animals: No Leisure activites: other History of recent travel: Yes ([place]) Do you think of yourself as: straight/heterosexual Current gender identity: female Seatbelt use: always Helmet use: Yes Drives intoxicated or rides with intoxicated driver wheelchair: No Water heater temperature set < 120 degrees: Yes Working smoke detector in home: Yes Fire extinguisher in home: Yes Carbon monoxide detector in home: Yes Firearms in home: No Surgical History (12/28/18) (03/12/19) Colectomy History of gastric bypass Z98.84 - Bariatric surgery status (ICD-10) History of gastrointestinal surgery Z98.890 - Other specified postprocedural states (ICD-10) History of gastrointestinal surgery Z98.890 - Other specified postprocedural states (ICD-10) History of heart surgery Z98.890 - Other specified postprocedural states (ICD-10) History of musculoskeletal system surgery Z98.890 - Other specified postprocedural states (ICD-10) History of surgery Z98.890 - Other specified postprocedural states (ICD-10) Implantation of cardiac pacemaker Female Reproductive History Menstrual Age of Menarche: 11 Hx Hysterectomy: Yes Hx Tubal Ligation: No Physical Exam Physical Exam Appearance: Reports Well-appearing Ill-appearing: None Pain Distress: None Eyes: Reports MARYCHUY and EOMI ENT: Reports Ears normal and Nose normal Neck: Supple Respiratory: Reports Airway patent and Breath sounds clear Cardiovascular: Reports RRR, Pulses normal and No rub GI/: Reports Soft, Nontender, No masses and Bowel sounds normal Musculoskeletal: Reports Normal strength and ROM intact Skin: Reports Warm and Normal color Neurological: Reports Sensation intact and Motor intact Psychiatric: Reports Affect appropriate Interpretation EKG Interpretation EKG Interpretation By: ED Physician Time of EKG #1: 14:22 Rate: Normal Rhythm: Sinus Ectopy: None [place]: Left ST Segment: Normal Interpretation: poss old lateral infarct.No acute ST changes Critical Care Note Critical Care Note Total Critical Care Time (mins): 0 Course Course 05/15/23 14:28 05/15/23 14:28 Orders, Labs, Meds: Lab Review 05/15/23 05/15/23 12:38 14:28 WBC 7.98 RBC 4.28 Hgb 11.7 L Hct 36.4 L MCV 85.0 MCH 27.3 MCHC 32.1 RDW Coeff of Gisselle 14.0 Plt Count 266 Immature Gran % (Auto) 0.3 Neut % (Auto) 72.8 Lymph % (Auto) 16.2 [place] % (Auto) 9.5 Eos % (Auto) 0.8 Baso % (Auto) 0.4 Neut # (Auto) 5.8 Lymph # (Auto) 1.3 [place] # (Auto) 0.8 Eos # (Auto) 0.1 Baso # (Auto) 0.0 Immature Gran # (Auto) 0.0 Sodium 136.2 Potassium 2.53 L* Chloride 94.1 L Carbon Dioxide 32.5 H Anion Gap 12.13 BUN 20.9 H Creatinine 0.87 Estimated GFR (MDRD) 66.00 BUN/Creatinine Ratio 24.02 Glucose 99.1 D Calcium 8.86 Total Bilirubin 0.35 AST 46.3 H ALT 27.7 Alkaline Phosphatase 74.4 NT-Pro-B Natriuret Pep 120 Total Protein 7.94 Albumin 4.08 Globulin 3.86 Albumin/Globulin Ratio 1.05 Orders Category Date Time Status EKG-(ED ONLY) Stat CARDIO 05/15/23 14:10 Completed IV ACCESS ONCE CARE 05/15/23 14:09 Active Monitor [ED DEVELOPER PROGRAMMER APPLIED] .ONCE EMERGENCY 05/15/23 14:09 Active CBC W/ AUTO DIFF Stat LAB 05/15/23 14:28 Completed CMP [COMPREHENSIVE METABOLIC PANEL] Stat LAB 05/15/23 14:28 Completed PROBNP ED [NT-PROBNP(ED)] Stat LAB 05/15/23 12:38 Completed Clonidine HCl [Catapres] Meds 05/15/23 15:42 Discontinued 0.2 mg PO ONCE ONE Hydralazine HCl Meds 05/15/23 14:11 Discontinued 10 mg IVP ONCE STA Ondansetron HCl/Pf [Zofran 4 mg/2 ml] Meds 05/15/23 14:12 Discontinued 4 mg IVP ONCE STA Potassium Chloride [Potassium Chl 10% Oral Allegra] Meds 05/15/23 14:11 Discontinued 40 meq PO ONCE STA Potassium Chloride [Potassium Chloride 20 Meq/100 ml Meds 05/15/23 15:03 Discontinued Premix] 40 meq in 200 ml IV ONCE CXR [CHEST, 1V AP ONLY] Stat RADS 05/15/23 14:09 Completed Medications Generic Name Dose Route Start Last Admin Trade Name Freq PRN Reason Stop Dose Admin Acetaminophen 650 mg 05/15/23 17:13 Acetaminophen 325 Mg Tablet PO Q4H PRN Mild Pain Apixaban 5 mg 05/15/23 21:00 Apixaban 5 Mg Tab PO BID FRANKIE Aspirin 81 mg 05/15/23 18:00 05/15/23 18:31 Aspirin 81 Mg Tablet. PO 81 mg DAILY FRANKIE Administration Budesonide/Formoterol Fumarate 2 puff 05/15/23 21:00 Budesonide/Formoterol Fumarate 80/4.5 Mcg Hfa.Aer.Ad IH BID FRANKIE Gabapentin 300 mg 05/15/23 21:00 Gabapentin 300 Mg Capsule PO BID FRANKIE Ibuprofen 600 mg 05/15/23 17:31 Ibuprofen 600 Mg Tablet PO Q6H PRN Mild Pain Insulin Human Regular 0 unit 05/15/23 17:33 Insulin Regular, Human 100 Unit/Ml (3ml) Vial SUBCUT PRN PRN Hyperglycemia Protocol Metoprolol Tartrate 25 mg 05/15/23 21:00 Metoprolol Tartrate 25 Mg Tablet PO BID FRANKIE Mexiletine HCl 150 mg 05/15/23 18:30 Mexiletine Hcl 150 Mg Capsule PO Q8H FRANKIE Ondansetron HCl 4 mg 05/15/23 17:32 Ondansetron Hcl/Pf 4 Mg/2 Ml Sdv IVP Q6H PRN Nausea / Vomiting Pantoprazole Sodium 20 mg 05/16/23 06:30 Pantoprazole Sodium 40 Mg Tablet. PO BIDAC FRANKIE Ropinirole HCl 0.5 mg 05/15/23 21:00 Ropinirole Hcl 0.25 Mg Tablet PO BEDTIME FRANKIE Sucralfate 1 gm 05/15/23 21:00 Sucralfate 1 Gm Tablet PO ACHS FRANKIE Discontinued Medications Generic Name Dose Route Start Last Admin Trade Name Freq PRN Reason Stop Dose Admin Clonidine 0.2 mg 05/15/23 15:42 05/15/23 16:22 Clonidine Hcl 0.1 Mg Tablet PO 05/15/23 15:43 Not Given ONCE ONE Hydralazine HCl 10 mg 05/15/23 14:11 05/15/23 14:41 Hydralazine Hcl 20 Mg/Ml Sdv IVP 05/15/23 14:12 10 mg ONCE STA Administration Potassium Chloride 40 meq in 200 mls @ 50 mls/hr 05/15/23 15:03 05/15/23 15:25 Potassium Chloride 20 Meq/100 Ml Premix IV 05/15/23 19:02 50 mls/hr ONCE ONE Administration Non-Formulary Medication 150 mg 05/15/23 18:00 05/15/23 18:13 Mexiletine PO Not Given Q8H FRANKIE Ondansetron HCl 4 mg 05/15/23 14:12 05/15/23 14:41 Ondansetron Hcl/Pf 4 Mg/2 Ml Sdv IVP 05/15/23 14:13 4 mg ONCE STA Administration Potassium Chloride 40 meq 05/15/23 14:11 05/15/23 14:42 Potassium Chloride 40 Meq/30 Ml Cup PO 05/15/23 14:12 40 meq ONCE STA Administration Vital Signs: Temp Pulse Resp BP Pulse Ox 05/15/23 13:44 99.2 F 84 15 178/98 H 97 63 years old male with past medical history of CHF, chronic hypokalemia, cardiomyopathy, aortic stenosis who came to the ER from her primary care zacarias barr's office for low potassium level. Patient also tested positive for COVID at her doctor's office she is complaining of some shortness of breath patient has chronic hypokalemia and she takes potassium at home 4 times a day but recent work-up at her primary doctor told her that her potassium was 3 so she was sent to the emergency room patient also has been complaining of severe muscle weaknes s she fell this morning at home because of the muscle weakness but she did not hit her head or complaining of any bone pain.Patient has a potassium level of 2.5 she was given 40 mEq oral and 40 mEq IV chest x-ray did not show any acute findings patient is positive for COVID today as mentioned before but she is saturating 99-98 on room air. Discussed with the patient the need to admit her under observation to replete her potassium and repeat potassium level before she goes and she agrees with the plan called the hospitalist on-call Juan R Guidry and discussed the case with her and she accepted the patient to be admitted to her services. Discharge Plan Discharge Patient Disposition: ADMITTED INPATIENT Discharge Problem: COVID-19, [id number] Did you review [place] [employer] [employer] for ALL controlled substances?: Not Applicable ED Provider: DANAY FLORES Condition: Stable Physician Progress Note: []
[2023-05-15 14:34] LABS: BASOPHILS % (AUTO) 0.4 % (0.0-3.0); EOSINOPHILS # (AUTO) 0.1 K/ul (0.0-0.7); EOSINOPHILS % (AUTO) 0.8 % (0.0-7.0); HEMATOCRIT 36.4 % (37.0-47.0); HEMOGLOBIN 11.7 g/dl (12.0-16.0); IMMATURE GRANULOCYTE % (AUTO) 0.3 % (0.0-5.0); LYMPHOCYTES # (AUTO) 1.3 K/uL (0.60-3.4); LYMPHOCYTES % (AUTO) 16.2 (10.0-50.0); MEAN CORPUSCULAR HEMOGLOBIN 27.3 pg (27.0-31.0); MEAN CORPUSCULAR HGB CONC 32.1 (31.8-35.4); MONOCYTES # (AUTO) 0.8 K/uL (0.4-2.0); MONOCYTES % (AUTO) 9.5 (0-10); NEUTROPHILS # (AUTO) 5.8 K/ul (2.0-6.9); NEUTROPHILS % (AUTO) 72.8 % (42.2-75.2); PLATELET COUNT 266 10^3/uL (140-440); RED BLOOD COUNT 4.28 10^6/ul (4.20-5.40); WHITE BLOOD COUNT 7.98 K/ul (4.6-10.2)
--- NOTE | 2023-05-15 14:46 | DI ---
EXAM: CHEST RADIOGRAPH (1 VIEW) TECHNIQUE: Frontal Chest Radiograph. HISTORY: shortness of breath COMPARISON: 12/28/2022. FINDINGS: Lines, Tubes, Devices: Cardiac conduction device Lungs and Pleura: No focal consolidation. No pleural effusion. No pneumothorax. Cardiac silhouette: Enlarged but stable. Bones: No acute abnormality. IMPRESSION: No acute radiographic abnormality.
[2023-05-15 14:48] LABS: ALANINE AMINOTRANSFERASE 27.7 U/L (0-35); ALBUMIN 4.08 g/dL (3.5-5.0); ALKALINE PHOSPHATASE 74.4 U/L (53-141); ASPARTATE AMINO TRANSFERASE 46.3 U/L (14-36); BILIRUBIN,TOTAL 0.35 mg/dL (0.2-1.3); BLOOD UREA NITROGEN 20.9 mg/dL (7-17); CALCIUM 8.86 mg/dL (8.4-10.2); CARBON DIOXIDE 32.5 mmol/L (22-30.0); CHLORIDE 94.1 mmol/L (98-107); CREATININE 0.87 mg/dL (0.60-1.30); GLUCOSE 99.1 mg/dL (74-106); SODIUM 136.2 mmol/L (134.5-145); TOTAL PROTEIN 7.94 g/dL (6.3-8.2)
[2023-05-15 14:50] LABS: POTASSIUM 2.53 mmol/L (3.5-5.1)
[2023-05-15] MEDS ORDERED: POTASSIUM CHLORIDE 20 MEQ/100 ML PREMIX 40 MEQ/200 ML BAG IV ONE ×2 (15:03→23:02)
[2023-05-15] MEDS ORDERED: CATAPRES PO ONE (15:42)
[2023-05-15] MEDS ORDERED: TYLENOL PO PRN (17:13)
[2023-05-15 17:20] VITALS: BMI 38.9
[2023-05-15] MEDS ORDERED: MOTRIN PO PRN (17:31)
[2023-05-15] MEDS ORDERED: ZOFRAN 4 MG/2 ML IVP PRN (17:32)
[2023-05-15] MEDS ORDERED: TYLENOL ONE (17:32)
[2023-05-15] MEDS ORDERED: HUMULIN R SUBCUT PRN (17:33)
--- NOTE | 2023-05-15 17:44 | PCM ---
Date of Service Date Seen by Provider: 05/15/23 Time Seen by Provider: 17:25 Admit Day/Time Admission Date: 05/15/23 Admission Time: 17:00 Reason for Admission Chief Complaint: HYPOKALEMIA, COVID Hospital Provider [facility] Provider: KIAN HOUSE, [facility] Primary Care Physician Primary Care Physician: JAGDEEP NICHOLS APRN History of Present Illness History of Present Illness: 63 yo female presented to the ER following an appointment with her PCP for abnormal labs. Reports her potassium was found to 2.5. She has a history of chronic hypokalemia and takes high doses of diuretics daily for CHF. Patient reports she did a home Covid test on monday that was positive and confirmed in the doctors office today. Symptoms include headache, dry cough, congestion, fever as high as 102, body aches, loss of appetite, vomiting, and loss of taste and smell. States she vomits whenever she tries to eat and has been unable to eat or drink much since monday. Reports SOB on exertion, but also does this when she is overloaded. Has not taken her diuretics since monday due to not being able to eat or drink. Denies any other symptoms. Case Discussed With Case Discussed With: Patient's case was discussed with the ER Physicians, Dr. Woodson. [facility] Medical History Depression F32.9 - Major depressive disorder, single episode, unspecified (ICD-10) Diverticulosis K57.90 - Diverticulosis of intestine, part unspecified, without perforation or abscess without bleeding (ICD-10) Heart disease I51.9 - Heart disease, unspecified (ICD-10) Hiatal hernia K44.9 - Diaphragmatic hernia without obstruction or gangrene (ICD-10) Hypertension I10 - Essential (primary) hypertension (ICD-10) Hypothyroidism E03.9 - Hypothyroidism, unspecified (ICD-10) Restless legs syndrome G25.81 - Restless legs syndrome (ICD-10) Surgical History (12/28/18) (03/12/19) Colectomy History of gastric bypass Z98.84 - Bariatric surgery status (ICD-10) History of gastrointestinal surgery Z98.890 - Other specified postprocedural states (ICD-10) History of gastrointestinal surgery Z98.890 - Other specified postprocedural states (ICD-10) History of heart surgery Z98.890 - Other specified postprocedural states (ICD-10) History of musculoskeletal system surgery Z98.890 - Other specified postprocedural states (ICD-10) History of surgery Z98.890 - Other specified postprocedural states (ICD-10) Implantation of cardiac pacemaker Family History Mother Cardiac disease Hyperlipidemia Hypertension FATHER Diabetes Hyperlipidemia Hypertension Grandfather/Grandmother Cardiac disease Cerebrovascular accident Other Colon cancer Social History Smoking and tobacco status: Former smoker Tobacco: How many years used: 9 How long ago did patient quit smokin years ago Second hand smoke exposure: No Smoking risk assessment performed: Yes Alcohol intake: current Alcohol intake frequency: other Alcohol type: wine Counseling given: No Substance use type: does not use Counseling given: No Yvonne/druze: TENRIISM Special yvonne needs: No Agree to transfusion: Yes Adopted: No Caregiver/support person: Yes (Works for [employer] ) Foster care: No Household members: none Housing: apartment Marital status: D Lives independently: Yes Number of children: 2 Number of grandchildren: 4 Highest education level completed: GED or equivalent Financial difficulty paying for basics: somewhat hard service: No senior living: No Current occupational status: employed and unemployed Current occupational exposures/hazards: No 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 [employer] Pets and animals: No Leisure activites: other History of recent travel: Yes ([place]) Do you think of yourself as: straight/heterosexual Current gender identity: female Seatbelt use: always Helmet use: Yes Drives intoxicated or rides with intoxicated spike driver: No Water heater temperature set < 120 degrees: Yes Working smoke detector in home: Yes Fire extinguisher in home: Yes Carbon monoxide detector in home: Yes Firearms in home: No Allergies Allergies Allergy/AdvReac Type Severity Reaction Status Date / Time adhesive Allergy Severe Rash Verified 05/15/23 14:13 doxepin HCl [From [place]] AdvReac Severe hives Verified 05/15/23 14:13 latex AdvReac Severe Rash Uncoded 05/15/23 14:13 Current Medications Home Medications multivitamin (Daily Multi-Vitamin tablet) 1 ea PO d 03/10/17 [History Confirmed 05/15/23 Last Taken 03/10/18 08:00] fluticasone propionate 50 mcg/actuation nasal spray,suspension (Allergy Relief (fluticasone)) 1 spray intranasal QDAY PRN nasal congestion 03/26/21 [History Confirmed 05/15/23 Last Taken Unknown] aspirin 81 mg tablet,delayed release (Adult Aspirin Regimen) 81 mg PO QDAY 04/25/22 [History Confirmed 05/15/23 Last Taken Unknown] nitroglycerin 0.4 mg sublingual tablet (Nitrostat) 0.4 mg sublingual Q5M PRN chest pain 04/25/22 [History Confirmed 05/15/23 Last Taken Unknown] albuterol sulfate 90 mcg/actuation aerosol inhaler 2 puff inhalation Q4-6H PRN shortness of breath or wheezing #8.5 grams 12/27/22 [Rx Confirmed 05/15/23 Last Taken Unknown] pantoprazole 20 mg tablet,delayed release See Rx Instructions .Route .COMPLEX #180 tabs 01/18/23 [Rx Confirmed 05/15/23 Last Taken Unknown] apixaban 5 mg tablet (Eliquis) 5 mg PO BID #60 tabs 02/16/23 [Rx Confirmed 05/15/23 Last Taken Unknown] gabapentin 300 mg capsule (Neurontin) 300 mg PO BID 90 days #180 caps 03/08/23 [Rx Confirmed 05/15/23 Last Taken Unknown] metoprolol tartrate 25 mg tablet See Rx Instructions .Route .COMPLEX #180 tabs 03/08/23 [Rx Confirmed 05/15/23 Last Taken Unknown] ropinirole 0.25 mg tablet 0.5 mg PO QHS 90 days #180 tabs 03/08/23 [Rx Confirmed 05/15/23 Last Taken Unknown] budesonide-formoterol HFA 80 mcg-4.5 mcg/actuation aerosol inhaler (Symbicort) 2 puff inhalation BID #10.2 grams 04/19/23 [Rx Confirmed 05/15/23 Last Taken Unknown] spironolactone 25 mg tablet 25 mg PO DAILY #30 tab-caps 04/19/23 [Rx Confirmed 05/15/23 Last Taken Unknown] sucralfate 1 gram tablet 1 g PO QACHS 90 days #360 tabs 04/19/23 [Rx Confirmed 05/15/23 Last Taken Unknown] potassium chloride 20 mEq tablet,extended release(part/cryst) (Klor-Con M) 20 meq PO QID #270 tabs 04/20/23 [Rx Confirmed 05/15/23 Last Taken Unknown] torsemide 20 mg tablet 40 mg PO BID edema 90 days #360 tabs 04/20/23 [Rx Confirmed 05/15/23 Last Taken Unknown] mexiletine 150 mg capsule 150 mg PO Q8H 05/15/23 [History Confirmed 05/15/23 Last Taken Unknown] Home Acetaminophen (Acetaminophen 325 Mg Tablet) 650 mg PO Q4H PRN PRN Reason: Mild Pain Potassium Chloride (Potassium Chloride 20 Meq/100 Ml Premix) 40 meq in 200 mls @ 50 mls/hr IV ONCE ONE Stop: 05/15/23 19:02 Last Admin: 05/15/23 15:25 Dose: 50 mls/hr Ibuprofen (Ibuprofen 600 Mg Tablet) 600 mg PO Q6H PRN PRN Reason: Mild Pain Insulin Human Regular (Insulin Regular, Human 100 Unit/Ml (3ml) Vial) 0 unit SUBCUT PRN PRN; Protocol PRN Reason: Hyperglycemia Ondansetron HCl (Ondansetron Hcl/Pf 4 Mg/2 Ml Sdv) 4 mg IVP Q6H PRN PRN Reason: Nausea / Vomiting Discontinued Medications Clonidine (Clonidine Hcl 0.1 Mg Tablet) 0.2 mg PO ONCE ONE Stop: 05/15/23 15:43 Last Admin: 05/15/23 16:22 Dose: Not Given Hydralazine HCl (Hydralazine Hcl 20 Mg/Ml Sdv) 10 mg IVP ONCE STA Stop: 05/15/23 14:12 Last Admin: 05/15/23 14:41 Dose: 10 mg Ondansetron HCl (Ondansetron Hcl/Pf 4 Mg/2 Ml Sdv) 4 mg IVP ONCE STA Stop: 05/15/23 14:13 Last Admin: 05/15/23 14:41 Dose: 4 mg Potassium Chloride (Potassium Chloride 40 Meq/30 Ml Cup) 40 meq PO ONCE STA Stop: 08/28/23 14:12 Last Admin: 05/15/23 14:42 Dose: 40 meq Review of Systems Constitutional: Reports Fever, Weakness and Loss of appetite Head: Reports Normocephalic and Atraumatic Eyes: Reports No symptoms Ears: Reports No symptoms Nose: Reports Congestion Mouth: Reports No symptoms Throat: Reports No symptoms Cardiovascular: Reports No symptoms Respiratory: Reports Cough Gastrointestinal: Reports Nausea and Vomiting Genitourinary: Reports No Symptoms Musculoskeletal: Reports Muscle Pain (cramps ) Endocrine: Reports No symptoms Hematology: Reports No symptoms Immunology: Reports No symptoms Neurological: Reports No symptoms Psychiatric: Reports No symptoms Physical examination Most Recent Vital Signs: Most Recent Vital Signs Temperature 99.2 F 05/15/23 13:44 Temperature Source Oral 05/15/23 13:44 Pulse Rate 77 05/15/23 16:26 Respiratory Rate 14 05/15/23 16:26 Blood Pressure 140/94 H 05/15/23 16:26 O2 Sat by Pulse Oximetry 100 05/15/23 16:26 Height 5 ft 1 in 05/15/23 13:44 Weight 190 lb 05/15/23 13:44 Telemetry Heart Rate 65 02/24/22 15:17 Appearance: Positive No Apparent Distress, Alert and Oriented x3, Ill-Appearing and Obese Skin: Positive Warm HEENT: Positive Normocephalic, Atraumatic and PERRLA Neck: Positive Midline Trachea Chest/Lungs: Positive Symmetrical With Equal Breath Sounds, Clear to Auscultation Bilaterally and Good Air Movement all 4 Lung Lopez Heart: Positive RRR and Pulses Normal GI/: Positive Soft, Nontender, Bowel Sounds Normal and No Distention Musculoskeletal: Positive Not Examined Extremities: Positive Intact Peripheral Pulses, Stable Joints Without Laxity and Good ROM in All Joints Neurological: Positive Sensation Intact, Motor intact, Reflexes Intact, Alert, Oriented, Muscle Strength 5/5 in Upper and Lower Extremities Bilaterally and Other (generalized weakness) Psychiatric: Positive Oriented x4 Labs This Visit Labs This Visit: Labs This Visit 05/15/23 05/15/23 12:38 14:28 WBC 7.98 RBC 4.28 Hgb 11.7 L Hct 36.4 L MCV 85.0 MCH 27.3 MCHC 32.1 RDW Coeff of Gisselle 14.0 Plt Count 266 Immature Gran % (Auto) 0.3 Neut % (Auto) 72.8 Lymph % (Auto) 16.2 Tompkins % (Auto) 9.5 Eos % (Auto) 0.8 Baso % (Auto) 0.4 Neut # (Auto) 5.8 Lymph # (Auto) 1.3 Tompkins # (Auto) 0.8 Eos # (Auto) 0.1 Baso # (Auto) 0.0 Immature Gran # (Auto) 0.0 Sodium 136.2 Potassium 2.53 L* Chloride 94.1 L Carbon Dioxide 32.5 H Anion Gap 12.13 BUN 20.9 H Creatinine 0.87 Estimated GFR (MDRD) 66.00 BUN/Creatinine Ratio 24.02 Glucose 99.1 D Calcium 8.86 Total Bilirubin 0.35 AST 46.3 H ALT 27.7 Alkaline Phosphatase 74.4 NT-Pro-B Natriuret Pep 120 Total Protein 7.94 Albumin 4.08 Globulin 3.86 Albumin/Globulin Ratio 1.05 Imaging Imaging: EXAM: CHEST RADIOGRAPH (1 VIEW) TECHNIQUE: Frontal Chest Radiograph. HISTORY: shortness of breath COMPARISON: 12/28/2022. FINDINGS: Lines, Tubes, Devices: Cardiac conduction device Lungs and Pleura: No focal consolidation. No pleural effusion. No pneumothorax. Cardiac silhouette: Enlarged but stable. Bones: No acute abnormality. IMPRESSION: No acute radiographic abnormality. EKG Interpretation EKG Interpretation: SR rate of 77 Review Statement Review Statement: I have independently reviewed and interpreted the labs/EKGs/imaging that were ordered by the ER provider. I have reviewed all outside records that are available currently in our EMR including imaging/notes/labs from previous visits. Plan Plan: 1. Symptomatic Hypokalemia - replace, serial bmps, telemetry, holding diuretics 2. Covid-19 - no hypoxia noted, symptomatic treatment - zofran, tylenol, ibuprofen 3. Chronic Systolic Heart Failure - stable, does not appear in exacerbation, daily weight, I&O, holding diuretics due to hypokalemia 4. Hypertenson - chronic, stable, continue home medications 5. Diabetes Mellitus, Type 2 - chronic, hold oral agents, accuchecks qid with ssi 6. COPD - chronic, stable, monitor DVT Prophylaxis: Eliquis Time Spent: Greater than 80 minutes spent with patient, 50% of the time spent with this patient was devoted to counseling and coordination of care. [facility] minutes spent discussing advance care planning. Disposition: Admit to: Med/Surg Observation Full Code Discussed Plan of Care with Dr. Jeannine Mcneil. Medications Medication Orders: Medications Ordered Category Date Time Status Acetaminophen [Tylenol] Meds 05/15/23 17:13 Ordered 650 mg PO Q4H PRN Potassium Chloride [Potassium Chloride 20 Meq/100 ml Meds 05/15/23 15:03 Active Premix] 40 meq in 200 ml IV ONCE
[2023-05-15] MEDS ORDERED: MEXILETINE 150 MG PO SCH (18:00)
[2023-05-15] MEDS: MEXITIL PO SCH ×2 (18:23→20:10)
[2023-05-15] MEDS: ASPIRIN EC PO SCH (18:31)
[2023-05-15] MEDS: NEURONTIN PO SCH (20:10)
[2023-05-15] MEDS: CARAFATE PO SCH (20:10)
[2023-05-15] MEDS: ELIQUIS PO SCH (20:11)
[2023-05-15] MEDS: LOPRESSOR PO SCH (20:11)
[2023-05-15] MEDS: SYMBICORT 80-4.5 MCG INHALER IH SCH (20:15)
[2023-05-15] MEDS ORDERED: REQUIP PO SCH (21:00)
[2023-05-15 22:31] LABS: CALCIUM 8.46 mg/dL (8.4-10.2); CARBON DIOXIDE 29.5 mmol/L (22-30.0); CHLORIDE 98.8 mmol/L (98-107); CREATININE 0.76 mg/dL (0.60-1.30); GLUCOSE 125.9 mg/dL (74-106); POTASSIUM 2.91 mmol/L (3.5-5.1); SODIUM 135.9 mmol/L (134.5-145)
[2023-05-15] MEDS ORDERED: K-DUR PO ONE (23:02)
[2023-05-16] MEDS: CARAFATE PO SCH ×2 (05:44→11:18)
[2023-05-16] MEDS: MEXITIL PO SCH ×2 (05:44→13:01)
[2023-05-16] MEDS ORDERED: PROTONIX PO SCH (06:30)
[2023-05-16] MEDS: LOPRESSOR PO SCH (08:31)
[2023-05-16] MEDS: NEURONTIN PO SCH (08:31)
[2023-05-16] MEDS: ASPIRIN EC PO SCH (08:31)
[2023-05-16] MEDS: ELIQUIS PO SCH (08:32)
[2023-05-16] MEDS: SYMBICORT 80-4.5 MCG INHALER IH SCH (08:34)
[2023-05-16 09:17] LABS: BASOPHILS % (AUTO) 0.2 % (0.0-3.0); EOSINOPHILS # (AUTO) 0.1 K/ul (0.0-0.7); EOSINOPHILS % (AUTO) 2.3 % (0.0-7.0); HEMATOCRIT 34.3 % (37.0-47.0); HEMOGLOBIN 10.8 g/dl (12.0-16.0); IMMATURE GRANULOCYTE % (AUTO) 0.5 % (0.0-5.0); LYMPHOCYTES # (AUTO) 1.2 K/uL (0.60-3.4); LYMPHOCYTES % (AUTO) 26.3 (10.0-50.0); MEAN CORPUSCULAR HEMOGLOBIN 27.5 pg (27.0-31.0); MEAN CORPUSCULAR HGB CONC 31.5 (31.8-35.4); MEAN CORPUSCULAR VOLUME 87.3 fl (81.0-99.0); MONOCYTES # (AUTO) 0.3 K/uL (0.4-2.0); MONOCYTES % (AUTO) 6.3 (0-10); NEUTROPHILS # (AUTO) 2.8 K/ul (2.0-6.9); NEUTROPHILS % (AUTO) 64.4 % (42.2-75.2); PLATELET COUNT 232 10^3/uL (140-440); RDW COEFFICIENT OF VARIATION 14.5 % (11.6-14.8); RED BLOOD COUNT 3.93 10^6/ul (4.20-5.40); WHITE BLOOD COUNT 4.41 K/ul (4.6-10.2)
[2023-05-16 09:29] LABS: ALANINE AMINOTRANSFERASE 25.7 U/L (0-35); ALBUMIN 3.61 g/dL (3.5-5.0); ALKALINE PHOSPHATASE 65.8 U/L (53-141); ASPARTATE AMINO TRANSFERASE 39.9 U/L (14-36); BILIRUBIN,TOTAL 0.3 mg/dL (0.2-1.3); BLOOD UREA NITROGEN 11.4 mg/dL (7-17); CALCIUM 9.17 mg/dL (8.4-10.2); CARBON DIOXIDE 27.3 mmol/L (22-30.0); CHLORIDE 101.2 mmol/L (98-107); CREATININE 0.74 mg/dL (0.60-1.30); GLUCOSE 166.3 mg/dL (74-106); POTASSIUM 3.59 mmol/L (3.5-5.1); SODIUM 136.3 mmol/L (134.5-145); TOTAL PROTEIN 7.08 g/dL (6.3-8.2)
[2023-05-16 10:43] VITALS: BP 128/72; PULSE 61; RESP 16; TEMP 97.6
--- NOTE | 2023-05-16 11:35 | DCSUM ---
Admission Date Admission Date: 05/15/23 Discharge Date Discharge Date: 05/17/23 Admission Diagnosis Admission Diagnosis: 1. Symptomatic Hypokalemia 2. Covid-19 3. Chronic Systolic Heart Failure 4. Hypertenson 5. Diabetes Mellitus, Type 2 6. COPD Discharge Diagnosis Discharge Diagnosis: 1. Symptomatic Hypokalemia - Resolved 2. Covid-19 - Improving 3. Chronic Systolic Heart Failure - Stable 4. Hypertenson - Stable 5. Diabetes Mellitus, Type 2 - Stable 6. COPD - Stable Hospital Provider Hospital Provider: KIAN HOUSE, [facility] [place] Primary Care Physician Primary Care Physician: JAGDEEP NICHOLS APRN Summary of History and Physical Summary of History and Physical: 63 yo female presented to the ER following an appointment with her PCP for abnormal labs. Reports her potassium was found to 2.5. She has a history of chronic hypokalemia and takes high doses of diuretics daily for CHF. Patient reports she did a home Covid test on monday that was positive and confirmed in the doctors office today. Symptoms include headache, dry cough, congestion, fever as high as 102, body aches, loss of appetite, vomiting, and loss of taste and smell. States she vomits whenever she tries to eat and has been unable to eat or drink much since monday. Reports SOB on exertion, but also does this when she is overloaded. Has not taken her diuretics since monday due to not being able to eat or drink. Denies any other symptoms. Hospital Course Subjective: In ER, patient received 40 mEq of KCL PO and 40 mEq of KCL IV. Potassium increased from 2.5 to 2.9. She was then given additional 40 mEq KCL PO and 40 mEq KCL IV. Upon repeat cmp this am, potassium is 3.5. PCP adjusted her spironolactone from 100 mg to 25 mg due to leg cramps per patient. Adjusted to 50 mg due to hypokalemia. Held all diuretics overnight. Patient did not require oxygen during her stay related to covid. Fever was present on admission, but has not had a fever since. Discussed symptomatic treatment with OTC meds at home. All other home medications continued and no adjustments made. Appearance: Pleasant, No Apparent Distress and Alert HEENT: MMM and Supple CVS: No Murmur, No Rubs and No Gallop Abdomen: Soft and Non-Tender Respiratory: No Dyspnea Extremities: No Edema Vital Signs: Most Recent Vital Signs Temperature 97.6 F 05/16/23 10:00 Temperature Source Oral 05/16/23 10:00 Temperature Source Oral 05/15/23 13:44 Pulse Rate 61 05/16/23 10:00 Respiratory Rate 16 05/16/23 10:00 Blood Pressure 128/72 05/16/23 10:00 Blood Pressure Mean 90 05/16/23 10:00 Blood Pressure Left Arm 128/60 05/15/23 17:07 Blood Pressure Location Left Radial Artery 05/16/23 10:00 Blood Pressure Position Sitting 05/16/23 10:00 O2 Sat by Pulse Oximetry 97 05/16/23 10:00 Oxygen Delivery Method Room Air 05/16/23 10:00 Height 5 ft 1 in 05/15/23 17:07 Weight 210 lb 7 oz 05/16/23 06:00 Telemetry Type Bedside Monitor 05/16/23 07:00 Telemetry Monitoring Continues 05/16/23 07:00 Telemetry Heart Rate 65 05/16/23 07:00 EKG CO Interval 0.16 05/16/23 07:00 EKG QRS Interval 0.07 05/16/23 07:00 Telemetry Strip Reading NSR 05/16/23 07:00 Lab Results Last 24 Hours: 05/16/23 05/15/23 05/15/23 09:12 22:05 14:28 WBC 4.41 L 7.98 RBC 3.93 L 4.28 Hgb 10.8 L 11.7 L Hct 34.3 L 36.4 L MCV 87.3 85.0 MCH 27.5 27.3 MCHC 31.5 L 32.1 RDW Coeff of Gisselle 14.5 14.0 Plt Count 232 266 Immature Gran % (Auto) 0.5 0.3 Neut % (Auto) 64.4 72.8 Lymph % (Auto) 26.3 16.2 Randall % (Auto) 6.3 9.5 Eos % (Auto) 2.3 0.8 Baso % (Auto) 0.2 0.4 Neut # (Auto) 2.8 5.8 Lymph # (Auto) 1.2 1.3 Randall # (Auto) 0.3 L 0.8 Eos # (Auto) 0.1 0.1 Baso # (Auto) 0.0 0.0 Immature Gran # (Auto) 0.0 0.0 Sodium 136.3 135.9 136.2 Potassium 3.59 2.91 L 2.53 L* Chloride 101.2 98.8 94.1 L Carbon Dioxide 27.3 29.5 32.5 H Anion Gap 11.39 10.51 12.13 BUN 11.4 15.0 20.9 H Creatinine 0.74 0.76 0.87 Estimated GFR (MDRD) 79.00 77.00 66.00 BUN/Creatinine Ratio 15.40 19.73 24.02 Glucose 166.3 H 125.9 H 99.1 D Calcium 9.17 8.46 8.86 Total Bilirubin 0.30 0.35 AST 39.9 H 46.3 H ALT 25.7 27.7 Alkaline Phosphatase 65.8 74.4 NT-Pro-B Natriuret Pep Total Protein 7.08 7.94 Albumin 3.61 4.08 Globulin 3.47 3.86 Albumin/Globulin Ratio 1.04 1.05 05/15/23 12:38 WBC RBC Hgb Hct MCV MCH MCHC RDW Coeff of Gisselle Plt Count Immature Gran % (Auto) Neut % (Auto) Lymph % (Auto) Randall % (Auto) Eos % (Auto) Baso % (Auto) Neut # (Auto) Lymph # (Auto) Randall # (Auto) Eos # (Auto) Baso # (Auto) Immature Gran # (Auto) Sodium Potassium Chloride Carbon Dioxide Anion Gap BUN Creatinine Estimated GFR (MDRD) BUN/Creatinine Ratio Glucose Calcium Total Bilirubin AST ALT Alkaline Phosphatase NT-Pro-B Natriuret Pep 120 Total Protein Albumin Globulin Albumin/Globulin Ratio Discharge Instructions Discharge Planning: Discharge Planning > 40 minutes If patient is discharged with left ventricular systolic dysfunction: NA Discharged with a beta jacky? [] If no, why not? [] NA Discharged with an speedy/arb? [] If no, why not? [] NA Rest, drink plenty of fluids, treat symptoms with over the counter medications Stop taking spironolactone 25 mg. Start taking 50 mg daily Follow-up with PCP next week. Diabetic diet Activity as tolerated Discharge Medications: Medications at Discharge (Home Meds & RX) multivitamin (Daily Multi-Vitamin tablet) 1 ea PO d 03/10/17 fluticasone propionate 50 mcg/actuation nasal spray,suspension (Allergy Relief (fluticasone)) 1 spray intranasal QDAY PRN nasal congestion 03/26/21 aspirin 81 mg tablet,delayed release (Adult Aspirin Regimen) 81 mg PO QDAY 04/25/22 nitroglycerin 0.4 mg sublingual tablet (Nitrostat) 0.4 mg sublingual Q5M PRN chest pain 04/25/22 albuterol sulfate 90 mcg/actuation aerosol inhaler 2 puff inhalation Q4-6H PRN shortness of breath or wheezing #8.5 grams 12/27/22 pantoprazole 20 mg tablet,delayed release See Rx Instructions .Route .COMPLEX #180 tabs 01/18/23 apixaban 5 mg tablet (Eliquis) 5 mg PO BID #60 tabs 02/16/23 gabapentin 300 mg capsule (Neurontin) 300 mg PO BID 90 days #180 caps 03/08/23 metoprolol tartrate 25 mg tablet See Rx Instructions .Route .COMPLEX #180 tabs 03/08/23 ropinirole 0.25 mg tablet 0.5 mg PO QHS 90 days #180 tabs 03/08/23 budesonide-formoterol HFA 80 mcg-4.5 mcg/actuation aerosol inhaler (Symbicort) 2 puff inhalation BID #10.2 grams 04/19/23 sucralfate 1 gram tablet 1 g PO QACHS 90 days #360 tabs 04/19/23 potassium chloride 20 mEq tablet,extended release(part/cryst) (Klor-Con M) 20 m eq PO QID #270 tabs 04/20/23 torsemide 20 mg tablet 40 mg PO BID edema 90 days #360 tabs 04/20/23 mexiletine 150 mg capsule 150 mg PO Q8H 05/15/23 spironolactone 50 mg tablet 50 mg PO DAILY #30 tabs 05/16/23 Discharge Plan Discharge Discharge Orders: Discharge Patient (ONCE); Ordered 05/16/23 Ordered By: LISET MAHONEY Activity Restrictions/Additional Instructions: Rest, drink plenty of fluids, treat symptoms with over the counter medications Stop taking spironolactone 25 mg. Start taking 50 mg daily Follow-up with PCP next week. Diabetic diet Activity as tolerated Instructions: Hypokalemia (GEN), COVID-19 (Coronavirus Disease 2019) (GEN), How to Recover from COVID-19 at Home (GEN) Patient Disposition: HOME SELF-CARE Prescriptions: New spironolactone 50 mg tablet 50 mg PO DAILY Qty: 30 0RF Continued multivitamin [Daily Multi-Vitamin] 1 EACH tablet 1 ea PO d Eliquis 5 mg tablet 5 mg PO BID Qty: 60 2RF torsemide 20 mg tablet 40 mg PO BID 90 Days Qty: 360 0RF potassium chloride [Klor-Con M20] 20 mEq tablet,ER particles/crystals 20 meq PO QID Qty: 270 1RF mexiletine 150 mg capsule 150 mg PO Q8H aspirin [Adult Aspirin Regimen] 81 mg tablet,delayed release (DR/EC) 81 mg PO QDAY nitroglycerin [Nitrostat] 0.4 mg tablet, sublingual 0.4 mg sublingual Q5M PRN (Reason: chest pain) Rx Instructions: do not exceed 3 doses per episode albuterol sulfate 90 mcg/actuation HFA aerosol inhaler 2 puff inhalation Q4-6H PRN (Reason: shortness of breath or wheezing) Qty: 8.5 2RF pantoprazole 20 mg tablet,delayed release (DR/EC) See Rx Instructions .ROUTE .COMPLEX Qty: 180 1RF Dose Instruction: TAKE 1 TABLET BY MOUTH EVERY 12 HOURS Rx Instructions: TAKE 1 TABLET BY MOUTH EVERY 12 HOURS ropinirole 0.25 mg tablet 0.5 mg PO QHS 90 Days Qty: 180 1RF Rx Instructions: administer 1-3 hours before bedtime. gabapentin [Neurontin] 300 mg capsule 300 mg PO BID 90 Days Qty: 180 1RF Rx Instructions: for restless leg syndrome metoprolol tartrate 25 mg tablet See Rx Instructions .ROUTE .COMPLEX Qty: 180 1RF Dose Instruction: TAKE 1 TABLET BY MOUTH TWICE A DAY Rx Instructions: TAKE 1 TABLET BY MOUTH TWICE A DAY budesonide-formoterol [Symbicort] 80-4.5 mcg/actuation HFA aerosol inhaler 2 puff inhalation BID Qty: 10.2 2RF sucralfate 1 gram tablet 1 g PO QACHS 90 Days Qty: 360 2RF No Action fluticasone propionate [Allergy Relief (fluticasone)] 50 mcg/actuation spray,suspension 1 spray intranasal QDAY PRN (Reason: nasal congestion) Rx Instructions: administer into each nostril Did you review [place] [facility] [facility] for ALL controlled substances?: No Discussed opioids are addictive and Narcan is available by prescription or from pharmacy.: No Condition: Stable
== END 2023-05-16 13:15 | disposition home or self-care (01) ==
LOC: ED 13:28 → SCU 13:28
PROVIDERS: ADMIT Hospitalist; ATTEND Nurse Practitioner Family
DX: U07.1 COVID-19; E11.9 Type 2 diabetes mellitus without complications; R11.2 Nausea with vomiting, unspecified; E87.6 Hypokalemia; R05.9 Cough, unspecified; W19.XXXA Unspecified fall, initial encounter; R53.83 Other fatigue; R09.89 Other specified symptoms and signs involving the circulatory and respiratory systems; Z79.4 Long term (current) use of insulin; I50.22 Chronic systolic (congestive) heart failure; R25.2 Cramp and spasm; Z51.81 Encounter for therapeutic drug level monitoring; I10 Essential (primary) hypertension; J44.9 Chronic obstructive pulmonary disease, unspecified; Z79.899 Other long term (current) drug therapy; Z79.01 Long term (current) use of anticoagulants

== ENCOUNTER 2024-02-28 10:32 | Observation (INO) ==
--- NOTE | 2024-02-28 10:35 | ED.PDOC ---
General ED Provider: Dr. DAR KUNZ DO Chief Complaint: Abnormal Labs Time Seen by Provider: 02/28/24 10:35 Primary Care Provider: JAGDEEP NICHOLS APRN,[facility] What is Opioid Naive?: *Opioid Naive implies the patient is not already taking opioids or not chronically receiving opioids on a daily basis. *PRN dosing is not "usually" associated with tolerance. *Patients are at higher risk of over-sedation and aspiration. What is Opioid Tolerant?: *Opioid Tolerance implies less than the expected response to an opioid. *Acquired tolerance is defined by the patient taking 60mg of oral morphine daily (or equianalgesic dose of another opioid) for 1 week or more. *Often associated with chronic pain. *May take more than usual dose to achieve desired pain control. [facility] Medical History Hiatal hernia K44.9 - Diaphragmatic hernia without obstruction or gangrene (ICD-10) Hypertension I10 - Essential (primary) hypertension (ICD-10) Restless legs syndrome G25.81 - Restless legs syndrome (ICD-10) Hypothyroidism E03.9 - Hypothyroidism, unspecified (ICD-10) Heart disease I51.9 - Heart disease, unspecified (ICD-10) Depression F32.9 - Major depressive disorder, single episode, unspecified (ICD-10) Diverticulosis K57.90 - Diverticulosis of intestine, part unspecified, without perforation or abscess without bleeding (ICD-10) Family History Mother , no blood Cardiac disease Hyperlipidemia Hypertension FATHER , cardiac and kidney failure Diabetes Hyperlipidemia Hypertension Grandfather/Grandmother Cardiac disease Cerebrovascular accident Other Colon cancer Social History Smoking and tobacco status: Former smoker Tobacco: How many years used: 9 How long ago did patient quit smokin years ago Second hand smoke exposure: No Smoking risk assessment performed: Yes Alcohol intake: current Alcohol intake frequency: other Alcohol type: wine Counseling given: No Substance use type: does not use Counseling given: No Yvonne/gnosticism: ALEVISM Special yvonne needs: No Agree to transfusion: Yes Adopted: No Caregiver/support person: Yes (Works for [employer] ) Foster care: No Household members: none Housing: apartment Marital status: D Lives independently: Yes Number of children: 2 Number of grandchildren: 4 Highest education level completed: GED or equivalent Financial difficulty paying for basics: somewhat hard service: No intermediate: No Current occupational status: employed and unemployed Current occupational exposures/hazards: No 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 6mm sessile polyp, cold snare. . History of surgery stoma Z98.890 - Other specified postprocedural states (ICD-10) History of musculoskeletal system surgery kyphoplasty 7-18 DR Ames Z98.890 - Other specified postprocedural states (ICD-10) History of gastrointestinal surgery colostomy reversed. Z98.890 - Other specified postprocedural states (ICD-10) History of heart surgery Ablasion Z98.890 - Other specified postprocedural states (ICD-10) Implantation of cardiac pacemaker History of gastrointestinal surgery Z98.890 - Other specified postprocedural states (ICD-10) (12/28/18) Mervin Quintanilla MD Colectomy Female Reproductive History Menstrual Age of Menarche: 11 Hx Hysterectomy: Yes Hx Tubal Ligation: No Course Course 02/28/24 11:00 02/28/24 11:00 Orders, Labs, Meds: Lab Review 02/28/24 02/28/24 11:00 11:05 WBC 9.95 RBC 4.16 L Hgb 11.8 L Hct 36.2 L MCV 87.0 MCH 28.4 MCHC 32.6 RDW Coeff of Gisselle 14.4 Plt Count 318 Immature Gran % (Auto) 0.2 Neut % (Auto) 74.7 Lymph % (Auto) 15.8 [place] % (Auto) 6.4 Eos % (Auto) 2.3 Baso % (Auto) 0.6 Neut # (Auto) 7.4 H Lymph # (Auto) 1.6 [place] # (Auto) 0.6 Eos # (Auto) 0.2 Baso # (Auto) 0.1 Immature Gran # (Auto) 0.0 Sodium 140.3 Potassium 2.40 L* Chloride 96.2 L Carbon Dioxide 35.6 H Anion Gap 10.90 BUN 23.5 H Creatinine 1.21 Estimated GFR (MDRD) 45.00 BUN/Creatinine Ratio 19.42 Glucose 92.2 Calcium 9.61 Total Bilirubin 0.59 AST 38.7 H ALT 19.9 Alkaline Phosphatase 96.6 Total Protein 8.29 H Albumin 4.54 Globulin 3.75 Albumin/Globulin Ratio 1.21 Urine Color Yellow Urine Clarity Clear Urine pH 6.0 Ur Specific [place] 1.010 Urine Protein 1+ H Urine Glucose (UA) Negative Urine Ketones Negative Urine Blood Negative Urine Nitrite Negative Urine Bilirubin Negative Urine Urobilinogen 0.2 Ur Leukocyte Esterase Negative Urine Microscopic RBC 2-5 Urine Microscopic WBC 2-5 Ur Squamous Epith Cells 20-30 Urine Bacteria Trace Orders Category Date Time Status ADMIT OBSERVATION [PLACE PATIENT OBSERVATION] .TO ADMISSION 02/28/24 11:14 Active MEDSURG (MONITORED BED) EKG-(ED ONLY) Stat CARDIO 02/28/24 10:42 Completed TELEMETRY MONITORING TELE CARE 02/28/24 11:15 Active CBC W/ AUTO DIFF Stat LAB 02/28/24 11:00 Completed COMPREHENSIVE METABOLIC PANEL Stat LAB 02/28/24 11:00 Completed URINALYSIS C & S IF INDICATED Stat LAB 02/28/24 11:05 Completed Magnesium Sulfate in Water [Magnesium Sulf 2 G/50 ml Meds 02/28/24 11:13 Active Bag] 2 gm in 50 ml IV ONCE Potassium Chloride [K-Dur] Meds 02/28/24 11:14 Discontinued 40 meq PO ONCE ONE Potassium Chloride [Potassium Chloride 20 Meq/100 ml Meds 02/28/24 11:12 Active Premix] 40 meq in 200 ml IV ONCE Medications Generic Name Dose Route Start Last Admin Trade Name Freq PRN Reason Stop Dose Admin Potassium Chloride 40 meq in 200 mls @ 50 mls/hr 02/28/24 11:12 Potassium Chloride 20 Meq/100 Ml Premix IV 02/28/24 15:11 ONCE ONE MAGNESIUM SULFATE IN WATER 2 gm in 50 mls @ 150 mls/hr 02/28/24 11:13 Magnesium Sulf 2 G/50 Ml Bag IV 02/28/24 11:32 ONCE STA Discontinued Medications Generic Name Dose Route Start Last Admin Trade Name Freq PRN Reason Stop Dose Admin Potassium Chloride 40 meq 02/28/24 11:14 Potassium Chloride 20 Meq Tab PO 02/28/24 11:15 ONCE ONE Vital Signs: Temp Pulse Resp BP Pulse Ox 02/28/24 10:36 97.7 F 85 20 142/82 H 99 Discharge Plan Discharge Patient Disposition: PLACED OBSERVATION Discharge Problem: Acute hypokalemia Did you review [place] FINANCIAL ENGINEER for ALL controlled substances?: Not Applicable ED Provider: DAR KUNZ Condition: Stable
[2024-02-28 11:04] LABS: BASOPHILS # (AUTO) 0.1 K/uL (0-0.2); BASOPHILS % (AUTO) 0.6 % (0.0-3.0); EOSINOPHILS # (AUTO) 0.2 K/ul (0.0-0.7); EOSINOPHILS % (AUTO) 2.3 % (0.0-7.0); HEMATOCRIT 36.2 % (37.0-47.0); HEMOGLOBIN 11.8 g/dl (12.0-16.0); IMMATURE GRANULOCYTE % (AUTO) 0.2 % (0.0-5.0); LYMPHOCYTES # (AUTO) 1.6 K/uL (0.60-3.4); LYMPHOCYTES % (AUTO) 15.8 (10.0-50.0); MEAN CORPUSCULAR HEMOGLOBIN 28.4 pg (27.0-31.0); MEAN CORPUSCULAR HGB CONC 32.6 (31.8-35.4); MONOCYTES # (AUTO) 0.6 K/uL (0.4-2.0); MONOCYTES % (AUTO) 6.4 (0-10); NEUTROPHILS # (AUTO) 7.4 K/ul (2.0-6.9); NEUTROPHILS % (AUTO) 74.7 % (42.2-75.2); PLATELET COUNT 318 10^3/uL (140-440); RDW COEFFICIENT OF VARIATION 14.4 % (11.6-14.8); RED BLOOD COUNT 4.16 10^6/ul (4.20-5.40); WHITE BLOOD COUNT 9.95 K/ul (4.6-10.2)
[2024-02-28 11:16] LABS: BILIRUBIN,URINE Negative (NEGATIVE); CLARITY,URINE Clear (CLEAR); COLOR,URINE Yellow (YELLOW); GLUCOSE, URINE (UA) Negative (NEGATIVE); KETONES,URINE Negative (NEGATIVE); LEUKOCYTE ESTERASE ,URINE Negative (NEGATIVE); NITRITE,URINE Negative (NEGATIVE); PROTEIN,URINE 1+ (NEGATIVE); URINE, BLOOD Negative (NEGATIVE); UROBILINOGEN,URINE 0.2 (0.2)
[2024-02-28 11:16] LABS: ALANINE AMINOTRANSFERASE 19.9 U/L (0-35); ALBUMIN 4.54 g/dL (3.5-5.0); ALKALINE PHOSPHATASE 96.6 U/L (53-141); ASPARTATE AMINO TRANSFERASE 38.7 U/L (14-36); BILIRUBIN,TOTAL 0.59 mg/dL (0.2-1.3); BLOOD UREA NITROGEN 23.5 mg/dL (7-17); CALCIUM 9.61 mg/dL (8.4-10.2); CARBON DIOXIDE 35.6 mmol/L (22-30.0); CHLORIDE 96.2 mmol/L (98-107); CREATININE 1.21 mg/dL (0.60-1.30); GLUCOSE 92.2 mg/dL (74-106); SODIUM 140.3 mmol/L (134.5-145); TOTAL PROTEIN 8.29 g/dL (6.3-8.2)
[2024-02-28 11:18] LABS: POTASSIUM 2.4 mmol/L (3.5-5.1)
[2024-02-28 11:23] LABS: BACTERIA,URINE TRACE (NOT PRESENT); SQUAMOUS EPITHELIAL CELL,UR 20-30 (0-5)
--- NOTE | 2024-02-28 11:45 | PCM ---
Date of Service Date Seen by Provider: 02/28/24 Time Seen by Provider: 14:00 Admit Day/Time Admission Date: 02/28/24 Admission Time: 11:14 Reason for Admission Chief Complaint: HYPOKALEMIA Hospital Provider Hospital Provider: Brent Guerra PA-C, [facility] Primary Care Physician Primary Care Physician: JAGDEEP NICHOLS APRN,[facility] History of Present Illness History of Present Illness: Patient is a 64 year old female from home who presents for low K+. Patient states she was getting blood work for a imaging test done this morning. She was then called saying her K+ was low. She states overall she hasn't felt well and she can tell when it lowers. She states she usually takes 5 K+ tabs per day but her nephrology group advised only 4 since she was started on amiloride. However she's been unable to tolerate the amiloride and hasn't been taking it. Potassium in ER was found to be 2.4. She was given 40 meq orally and 40 meq IV have been ordered. She is otherwise asymptomatic. No EKG changes. Case Discussed With Case Discussed With: Patient's case was discussed with the ER Physicians, Dr. Gal DAVALOS Medical History Hiatal hernia K44.9 - Diaphragmatic hernia without obstruction or gangrene (ICD-10) Hypertension I10 - Essential (primary) hypertension (ICD-10) Restless legs syndrome G25.81 - Restless legs syndrome (ICD-10) Hypothyroidism E03.9 - Hypothyroidism, unspecified (ICD-10) Heart disease I51.9 - Heart disease, unspecified (ICD-10) Depression F32.9 - Major depressive disorder, single episode, unspecified (ICD-10) Diverticulosis K57.90 - Diverticulosis of intestine, part unspecified, without perforation or abscess without bleeding (ICD-10) Surgical History History of gastric bypass Z98.84 - Bariatric surgery status (ICD-10) (03/12/19) Repeat 5 years. 6mm sessile polyp, cold snare. . History of surgery stoma Z98.890 - Other specified postprocedural states (ICD-10) History of musculoskeletal system surgery kyphoplasty 7-18 DR Ames Z98.890 - Other specified postprocedural states (ICD-10) History of gastrointestinal surgery colostomy reversed. Z98.890 - Other specified postprocedural states (ICD-10) History of heart surgery Ablasion Z98.890 - Other specified postprocedural states (ICD-10) Implantation of cardiac pacemaker History of gastrointestinal surgery Z98.890 - Other specified postprocedural states (ICD-10) (12/28/18) Mervin Quintanilla MD Colectomy Family History Mother , no blood Cardiac disease Hyperlipidemia Hypertension FATHER , cardiac and kidney failure Diabetes Hyperlipidemia Hypertension Grandfather/Grandmother Cardiac disease Cerebrovascular accident Other Colon cancer Social History Smoking and tobacco status: Former smoker Tobacco: How many years used: 9 How long ago did patient quit smokin years ago Second hand smoke exposure: No Smoking risk assessment performed: Yes Alcohol intake: current Alcohol intake frequency: other Alcohol type: wine Counseling given: No Substance use type: does not use Counseling given: No Yvonne/mu-ism: ZOROASTRIAN Special yvonne needs: No Agree to transfusion: Yes Adopted: No Caregiver/support person: Yes (Works for [employer] ) Foster care: No Household members: none Housing: apartment Marital status: D Lives independently: Yes Number of children: 2 Number of grandchildren: 4 Highest education level completed: GED or equivalent Financial difficulty paying for basics: somewhat hard service: No alf: No Current occupational status: employed and unemployed Current occupational exposures/hazards: No 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 [employer] Pets and animals: No Leisure activites: other History of recent travel: Yes ([place]) Do you think of yourself as: straight/heterosexual Current gender identity: female Seatbelt use: always Helmet use: Yes Drives intoxicated or rides with intoxicated truck driver salesperson: No Water heater temperature set < 120 degrees: Yes Working smoke detector in home: Yes Fire extinguisher in home: Yes Carbon monoxide detector in home: Yes Firearms in home: No Allergies Allergies Allergy/AdvReac Type Severity Reaction Status Date / Time adhesive Allergy Severe Rash Verified 02/28/24 10:40 doxepin HCl [From S[place]] AdvReac Severe hives Verified 02/28/24 10:40 [id number] Reductase AdvReac Intermediate other Verified 02/28/24 10:40 Inhibitor latex AdvReac Severe Rash Uncoded 02/28/24 10:40 Current Medications Home Medications multivitamin (Daily Multi-Vitamin tablet) 1 ea PO d 03/10/17 [History Confirmed 02/28/24 Last Taken 02/27/24 09:00] nitroglycerin 0.4 mg sublingual tablet (Nitrostat) 0.4 mg sublingual Q5M PRN chest pain 04/25/22 [History Confirmed 02/28/24 Last Taken Unknown] albuterol sulfate 90 mcg/actuation aerosol inhaler 2 puff inhalation Q4-6H PRN shortness of breath or wheezing #8.5 grams 12/27/22 [Rx Confirmed 02/28/24 Last Taken 02/26/24 09:00 2 puff] budesonide-formoterol HFA 80 mcg-4.5 mcg/actuation aerosol inhaler (Symbicort) 2 puff inhalation BID #10.2 grams 04/19/23 [Rx Confirmed 02/28/24 Last Taken Unknown] sucralfate 1 gram tablet 1 g PO QACHS 90 days #360 tabs 06/26/23 [Rx Confirmed 02/28/24 Last Taken 02/27/24 21:30 1 g] metoprolol succinate 50 mg tablet,extended release 24 hr 50 mg PO BEDTIME 07/31/23 [History Confirmed 02/28/24 Last Taken 02/27/24 21:30 50 mg] fluticasone propionate 50 mcg/actuation nasal spray,suspension (Allergy Relief (fluticasone)) 1 spray intranasal QDAY PRN nasal congestion #16 grams 09/28/23 [Rx Confirmed 02/28/24 Last Taken 02/27/24 21:30] metformin 500 mg tablet See Rx Instructions .Route .COMPLEX #180 tabs 10/26/23 [Rx Confirmed 02/28/24 Last Taken 02/27/24 21:30 500] losartan 25 mg tablet 25 mg PO QDAY kidney protection #90 tabs 11/08/23 [Rx Confirmed 02/28/24 Last Taken Unknown] magnesium oxide 400 mg PO BID persistent hypokalemia #60 tabs 11/08/23 [Rx Confirmed 02/28/24 Last Taken 02/27/24 21:30 400 mg] tirzepatide 7.5 mg/0.5 mL subcutaneous pen injector (Carlos) See Rx Instructions .Route .COMPLEX #2 mL 12/13/23 [Rx Confirmed 02/28/24 Last Taken Unknown] torsemide 20 mg tablet 40 mg (2 x 20 mg) PO BID 90 days #360 tabs 01/02/24 [Rx Confirmed 02/28/24 Last Taken 02/27/24 21:30] amiloride 5 mg tablet 5 mg PO BID #60 tabs 01/17/24 [Rx Confirmed 02/28/24 Last Taken Unknown] pantoprazole 20 mg tablet,delayed release See Rx Instructions .Route .COMPLEX #180 tabs 01/29/24 [Rx Confirmed 02/28/24 Last Taken 02/27/24 21:30] gabapentin 600 mg tablet 600 mg PO TID 30 days #90 tabs 02/19/24 [Rx Confirmed 02/28/24 Last Taken 02/27/24 21:30 600 mg] ropinirole 1 mg tablet 1 mg PO QHS #30 tabs 02/19/24 [Rx Confirmed 02/28/24 Last Taken 02/27/24 21:30] potassium chloride 20 mEq tablet,extended release(part/cryst) (Klor-Con M) 20 meq PO 4XD chronic hypokalemia 02/28/24 [History Confirmed 02/28/24 Last Taken 02/27/24 09:00 20 mEq] Home Acetaminophen (Acetaminophen 325 Mg Tablet) 650 mg PO Q4H PRN PRN Reason: Mild Pain Potassium Chloride (Potassium Chloride 20 Meq/100 Ml Premix) 40 meq in 200 mls @ 50 mls/hr IV ONCE ONE Stop: 02/28/24 15:11 Last Admin: 02/28/24 12:24 Dose: 50 mls/hr Discontinued Medications MAGNESIUM SULFATE IN WATER (Magnesium Sulf 2 G/50 Ml Bag) 2 gm in 50 mls @ 150 mls/hr IV ONCE STA Stop: 02/28/24 11:32 Last Admin: 02/28/24 11:56 Dose: 150 mls/hr Potassium Chloride (Potassium Chloride 20 Meq Tab) 40 meq PO ONCE ONE Stop: 02/28/24 11:15 Last Admin: 02/28/24 11:57 Dose: 40 meq Opioid Naive vs. Tolerant Does Patient Take Opioids?: No Is Patient Opioid Naive?: Yes What is Opioid Naive?: *Opioid Naive implies the patient is not already taking opioids or not ch ronically receiving opioids on a daily basis. *PRN dosing is not "usually" associated with tolerance. *Patients are at higher risk of over-sedation and aspiration. Is Patient Opioid Tolerant?: No What is Opioid Tolerant?: *Opioid Tolerance implies less than the expected response to an opioid. *Acquired tolerance is defined by the patient taking 60mg of oral morphine daily (or equianalgesic dose of another opioid) for 1 week or more. *Often associated with chronic pain. *May take more than usual dose to achieve desired pain control. Review of Systems Constitutional: Reports Fatigue and Weakness Head: Reports Normocephalic and Atraumatic Cardiovascular: Denies Chest pain, Chest Pressure or Edema Respiratory: Denies Cough or Shortness of air Gastrointestinal: Denies Nausea, Vomiting, Diarrhea, Abdominal pain or Melena Genitourinary: Denies Dysuria or Frequency Neurological: Reports Weakness Physical examination Most Recent Vital Signs: Most Recent Vital Signs Temperature 97.7 F 02/28/24 10:36 Temperature Source Infrared 02/28/24 10:36 Pulse Rate 85 02/28/24 10:36 Respiratory Rate 20 02/28/24 10:36 Blood Pressure 142/82 H 02/28/24 10:36 O2 Sat by Pulse Oximetry 99 02/28/24 10:36 Height 5 ft 1 in 02/28/24 10:36 Weight 190 lb 6.4 oz 02/28/24 10:36 Telemetry Heart Rate 67 05/16/23 13:00 Appearance: Positive No Apparent Distress and Alert and Oriented x3 Skin: Positive [place], Warm and Good Turgor; Negative Rashes HEENT: Positive Normocephalic and Atraumatic Neck: Positive Supple and Midline Trachea Chest/Lungs: Positive Clear to Auscultation Bilaterally; Negative Rales, Rhonci or Wheezes Heart: Positive RRR GI/: Positive Soft, Nontender, Bowel Sounds Normal and No Distention Neurological: Positive Cranial Nerves Intact, Alert and Oriented Psychiatric: Positive Oriented x4, Appropriate Mood and Appropriate Affect Labs This Visit Labs This Visit: Labs This Visit 02/28/24 02/28/24 11:00 11:05 WBC 9.95 RBC 4.16 L Hgb 11.8 L Hct 36.2 L MCV 87.0 MCH 28.4 MCHC 32.6 RDW Coeff of Gisselle 14.4 Plt Count 318 Immature Gran % (Auto) 0.2 Neut % (Auto) 74.7 Lymph % (Auto) 15.8 [place] % (Auto) 6.4 Eos % (Auto) 2.3 Baso % (Auto) 0.6 Neut # (Auto) 7.4 H Lymph # (Auto) 1.6 [place] # (Auto) 0.6 Eos # (Auto) 0.2 Baso # (Auto) 0.1 Immature Gran # (Auto) 0.0 Sodium 140.3 Potassium 2.40 L* Chloride 96.2 L Carbon Dioxide 35.6 H Anion Gap 10.90 BUN 23.5 H Creatinine 1.21 Estimated GFR (MDRD) 45.00 BUN/Creatinine Ratio 19.42 Glucose 92.2 Calcium 9.61 Total Bilirubin 0.59 AST 38.7 H ALT 19.9 Alkaline Phosphatase 96.6 Total Protein 8.29 H Albumin 4.54 Globulin 3.75 Albumin/Globulin Ratio 1.21 Urine Color Yellow Urine Clarity Clear Urine pH 6.0 Ur Specific [place] 1.010 Urine Protein 1+ H Urine Glucose (UA) Negative Urine Ketones Negative Urine Blood Negative Urine Nitrite Negative Urine Bilirubin Negative Urine Urobilinogen 0.2 Ur Leukocyte Esterase Negative Urine Microscopic RBC 2-5 Urine Microscopic WBC 2-5 Ur Squamous Epith Cells 20-30 Urine Bacteria Trace Review Statement Review Statement: I have independently reviewed and interpreted the labs/EKGs/imaging that were ordered by the ER provider. I have reviewed all outside records that are available currently in our EMR including imaging/notes/labs from previous visits. Plan Plan: 1. Acute hypokalemia, severe - 80 meq has been ordered so far. Will repeat bmp at 1800. Tele. Pt takes torsemide but will avoid changing dose. 2. Systolic heart failure, not in exacerbation - Cont home meds 3. DMT2 - Cont home meds 4. Hypertension - Cont home meds 5. GERD - Cont home meds DVT Prophylaxis: Ambulation Time Spent: Greater than 80 minutes spent with patient, 50% of the time spent with this patient was devoted to counseling and coordination of care. [facility]annin minutes spent discussing advance care planning. Admit to: Obs Discussed Plan of Care with Dr. Aleja Mcneil. Medications Medication Orders: Medications Ordered Category Date Time Status Potassium Chloride [Potassium Chloride 20 Meq/100 ml Meds 02/28/24 11:12 Active Premix] 40 meq in 200 ml IV ONCE
[2024-02-28 11:49] LABS: SARS COV-2 RNA RAPID NAAT NEGATIVE (NEGATIVE)
[2024-02-28] MEDS: MAGNESIUM SULF 2 G/50 ML BAG 2 GM/50 ML PIGGYBACK IV STA (11:56)
[2024-02-28] MEDS: K-DUR PO ONE ×2 (11:57→18:47)
[2024-02-28] MEDS: POTASSIUM CHLORIDE 20 MEQ/100 ML PREMIX 40 MEQ/200 ML BAG IV ONE ×2 (12:17→18:48)
[2024-02-28 13:45] VITALS: BMI 36.3
[2024-02-28] MEDS ORDERED: TYLENOL PO PRN (14:26)
[2024-02-28 18:19] LABS: BLOOD UREA NITROGEN 21.6 mg/dL (7-17); CALCIUM 9.02 mg/dL (8.4-10.2); CARBON DIOXIDE 29.1 mmol/L (22-30.0); CHLORIDE 103.1 mmol/L (98-107); CREATININE 0.94 mg/dL (0.60-1.30); SODIUM 140.8 mmol/L (134.5-145)
[2024-02-28 18:20] LABS: POTASSIUM 2.74 mmol/L (3.5-5.1)
[2024-02-28] MEDS ORDERED: VENTOLIN HFA IH PRN (18:36)
[2024-02-28] MEDS: NEURONTIN PO SCH (21:02)
[2024-02-28] MEDS: DEMADEX PO SCH (21:02)
[2024-02-28] MEDS: TOPROL XL PO SCH (21:02)
[2024-02-28] MEDS: REQUIP PO SCH (21:02)
[2024-02-28] MEDS: SYMBICORT 80-4.5 MCG INHALER IH SCH (21:03)
[2024-02-28] MEDS: CARAFATE PO SCH (21:03)
[2024-02-28] MEDS: PRILOSEC PO SCH (21:33)
[2024-02-29 05:55] LABS: BASOPHILS # (AUTO) 0.1 K/uL (0-0.2); BASOPHILS % (AUTO) 0.8 % (0.0-3.0); EOSINOPHILS # (AUTO) 0.3 K/ul (0.0-0.7); EOSINOPHILS % (AUTO) 3.7 % (0.0-7.0); HEMATOCRIT 34.2 % (37.0-47.0); HEMOGLOBIN 10.9 g/dl (12.0-16.0); IMMATURE GRANULOCYTE % (AUTO) 0.4 % (0.0-5.0); LYMPHOCYTES # (AUTO) 1.5 K/uL (0.60-3.4); LYMPHOCYTES % (AUTO) 19.5 (10.0-50.0); MEAN CORPUSCULAR HEMOGLOBIN 28.5 pg (27.0-31.0); MEAN CORPUSCULAR HGB CONC 31.9 (31.8-35.4); MEAN CORPUSCULAR VOLUME 89.3 fl (81.0-99.0); MONOCYTES # (AUTO) 0.5 K/uL (0.4-2.0); MONOCYTES % (AUTO) 6.4 (0-10); NEUTROPHILS # (AUTO) 5.3 K/ul (2.0-6.9); NEUTROPHILS % (AUTO) 69.2 % (42.2-75.2); PLATELET COUNT 305 10^3/uL (140-440); RDW COEFFICIENT OF VARIATION 14.9 % (11.6-14.8); RED BLOOD COUNT 3.83 10^6/ul (4.20-5.40)
[2024-02-29 06:04] LABS: ALANINE AMINOTRANSFERASE 17.7 U/L (0-35); ALBUMIN 3.96 g/dL (3.5-5.0); ALKALINE PHOSPHATASE 92.7 U/L (53-141); ASPARTATE AMINO TRANSFERASE 30.2 U/L (14-36); BILIRUBIN,TOTAL 0.52 mg/dL (0.2-1.3); BLOOD UREA NITROGEN 15.1 mg/dL (7-17); CALCIUM 8.53 mg/dL (8.4-10.2); CARBON DIOXIDE 33.7 mmol/L (22-30.0); CHLORIDE 103.8 mmol/L (98-107); CREATININE 0.82 mg/dL (0.60-1.30); GLUCOSE 102.5 mg/dL (74-106); MAGNESIUM 2.14 mg/dL (1.6-2.3); POTASSIUM 2.95 mmol/L (3.5-5.1); SODIUM 142.3 mmol/L (134.5-145); TOTAL PROTEIN 7.18 g/dL (6.3-8.2)
[2024-02-29] MEDS: K-DUR PO ONE ×3 (08:08→20:37)
[2024-02-29] MEDS: POTASSIUM CHLORIDE 20 MEQ/100 ML PREMIX 40 MEQ/200 ML BAG IV ONE (08:11)
--- NOTE | 2024-02-29 14:43 | DCSUM ---
Hospital Provider Hospital Provider: BR[facility] GU[facility]RA [facility]-C, [facility] Primary [facility] Physician Primary Care Physician: JAGDEEP NICHOLS APRN,[facility] Hospital Course Vital Signs: Most Recent Vital Signs Temperature 97.1 F L 02/29/24 14:00 Temperature Source Temporal Artery Scan 02/29/24 14:00 Temperature Source Infrared 02/28/24 10:36 Pulse Rate 67 02/29/24 14:00 Respiratory Rate 16 02/29/24 14:00 Blood Pressure 103/55 L 02/29/24 14:00 Blood Pressure Mean 71 02/29/24 14:00 Blood Pressure Right Arm 119/82 02/28/24 13:08 Blood Pressure Location Right Arm 02/29/24 14:00 Blood Pressure Position Sitting 02/29/24 10:00 O2 Sat by Pulse Oximetry 98 02/29/24 14:00 Oxygen Delivery Method Room Air 02/29/24 14:00 Height 5 ft 1 in 02/28/24 13:08 Weight 192 lb 3 oz 02/28/24 13:08 Telemetry Type Remote Telemetry 02/29/24 07:00 Telemetry Monitoring Continues 02/29/24 07:00 Telemetry Heart Rate 63 02/29/24 07:00 EKG [place] Interval 0.20 02/29/24 07:00 EKG QRS Interval 0.12 H 02/29/24 07:00 Telemetry Strip Reading SR with BBB 02/29/24 07:00 Lab Results Last 24 Hours: 02/29/24 02/28/24 05:29 18:00 WBC 7.60 RBC 3.83 L Hgb 10.9 L Hct 34.2 L MCV 89.3 MCH 28.5 MCHC 31.9 RDW Coeff of Gisselle 14.9 H Plt Count 305 Immature Gran % (Auto) 0.4 Neut % (Auto) 69.2 Lymph % (Auto) 19.5 [place] % (Auto) 6.4 Eos % (Auto) 3.7 Baso % (Auto) 0.8 Neut # (Auto) 5.3 Lymph # (Auto) 1.5 [place] # (Auto) 0.5 Eos # (Auto) 0.3 Baso # (Auto) 0.1 Immature Gran # (Auto) 0.0 Sodium 142.3 140.8 Potassium 2.95 L 2.74 L* Chloride 103.8 103.1 Carbon Dioxide 33.7 H 29.1 Anion Gap 7.75 11.34 BUN 15.1 21.6 H Creatinine 0.82 0.94 Estimated GFR (MDRD) 70.00 60.00 BUN/Creatinine Ratio 18.41 22.97 Glucose 102.5 82.0 Calcium 8.53 9.02 Magnesium 2.14 Total Bilirubin 0.52 AST 30.2 ALT 17.7 Alkaline Phosphatase 92.7 Total Protein 7.18 Albumin 3.96 Globulin 3.22 Albumin/Globulin Ratio 1.22 Discharge Instructions Discharge Planning: Discharge Planning > 40 minutes If patient is discharged with left ventricular systolic dysfunction: Discharged with a beta jacky? [] If no, why not? [] Discharged with an speedy/arb? [] If no, why not? [] Discharge Medications: Medications at Discharge (Home Meds & RX) multivitamin (Daily Multi-Vitamin tablet) 1 ea PO d 03/10/17 nitroglycerin 0.4 mg sublingual tablet (Nitrostat) 0.4 mg sublingual Q5M PRN chest pain 04/25/22 albuterol sulfate 90 mcg/actuation aerosol inhaler 2 puff inhalation Q4-6H PRN shortness of breath or wheezing #8.5 grams 12/27/22 budesonide-formoterol HFA 80 mcg-4.5 mcg/actuation aerosol inhaler (Symbicort) 2 puff inhalation BID #10.2 grams 04/19/23 sucralfate 1 gram tablet 1 g PO QACHS 90 days #360 tabs 06/26/23 metoprolol succinate 50 mg tablet,extended release 24 hr 50 mg PO BEDTIME 07/31/23 fluticasone propionate 50 mcg/actuation nasal spray,suspension (Allergy Relief (fluticasone)) 1 spray intranasal QDAY PRN nasal congestion #16 grams 09/28/23 metformin 500 mg tablet See Rx Instructions .Route .COMPLEX #180 tabs 10/26/23 losartan 25 mg tablet 25 mg PO QDAY kidney protection #90 tabs 11/08/23 magnesium oxide 400 mg PO BID persistent hypokalemia #60 tabs 11/08/23 tirzepatide 7.5 mg/0.5 mL subcutaneous pen injector (Carlos) See Rx Instructions .Route .COMPLEX #2 mL 12/13/23 torsemide 20 mg tablet 40 mg (2 x 20 mg) PO BID 90 days #360 tabs 01/02/24 amiloride 5 mg tablet 5 mg PO BID #60 tabs 01/17/24 pantoprazole 20 mg tablet,delayed release See Rx Instructions .Route .COMPLEX #180 tabs 01/29/24 gabapentin 600 mg tablet 600 mg PO TID 30 days #90 tabs 02/19/24 ropinirole 1 mg tablet 1 mg PO QHS #30 tabs 02/19/24 potassium chloride 20 mEq tablet,extended release(part/cryst) (Klor-Con M) 20 meq PO 4XD chronic hypokalemia 02/28/24 Discharge Plan Discharge Discharge Orders: Discharge Patient (ONCE); Ordered 02/29/24 Ordered By: BRENT GUERRA Prescriptions: No Action multivitamin [Daily Multi-Vitamin] 1 EACH tablet 1 ea PO d fluticasone propionate [Allergy Relief (fluticasone)] 50 mcg/actuation spray,suspension 1 spray intranasal QDAY PRN (Reason: nasal congestion) Qty: 16 2RF Rx Instructions: administer into each nostril metformin 500 mg tablet See Rx Instructions .ROUTE .COMPLEX Qty: 180 1RF Dose Instruction: TAKE ONE TABLET TWICE A DAY WITH MEALS Rx Instructions: TAKE ONE TABLET TWICE A DAY WITH MEALS Mounjaro 7.5 mg/0.5 mL pen injector See Rx Instructions .ROUTE .COMPLEX Qty: 2 1RF Dose Instruction: INJECT 7.5 MG (0.5 ML) 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 torsemide 20 mg tablet 40 mg PO BID 90 Days Qty: 360 1RF amiloride 5 mg tablet 5 mg PO BID Qty: 60 0RF Hold Instructions: states not taking makes her sick Rx Instructions: ordered by nephrology pantoprazole 20 mg tablet,delayed release (DR/EC) See Rx Instructions .ROUTE .COMPLEX Qty: 180 0RF Dose Instruction: TAKE ONE TABLET EVERY TWELVE HOURS GENERIC FOR PROTONIX Rx Instructions: TAKE ONE TABLET EVERY TWELVE HOURS GENERIC FOR PROTONIX ropinirole 1 mg tablet 1 mg PO QHS Qty: 30 0RF Rx Instructions: administer 1-3 hours before bedtime metoprolol succinate 50 mg tablet extended release 24 hr 50 mg PO BEDTIME Rx Instructions: stop the metoprolol tartrate and change to metoprolol succinate and change to nightly once daily dosing potassium chloride [Klor-Con M20] 20 mEq tablet,ER particles/crystals 20 meq PO 4XD nitroglycerin [Nitrostat] 0.4 mg tablet, sublingual 0.4 mg sublingual Q5M PRN (Reason: chest pain) Rx Instructions: do not exceed 3 doses per episode albuterol sulfate 90 mcg/actuation HFA aerosol inhaler 2 puff inhalation Q4-6H PRN (Reason: shortness of breath or wheezing) Qty: 8.5 2RF sucralfate 1 gram tablet 1 g PO QACHS 90 Days Qty: 360 2RF magnesium oxide 400 mg magnesium tablet 400 mg PO BID Qty: 60 2RF losartan 25 mg tablet 25 mg PO QDAY Qty: 90 1RF Hold Instructions: not taking makes her sick budesonide-formoterol [Symbicort] 80-4.5 mcg/actuation HFA aerosol inhaler 2 puff inhalation BID Qty: 10.2 2RF gabapentin 600 mg tablet 600 mg PO TID 30 Days Qty: 90 0RF Condition: Stable Referrals: [facility]S [facility] [Primary [facility] - 03/06/24 2:45 pm
--- NOTE | 2024-02-29 14:53 | PCM.PROG ---
Date/Time Seen Date Seen by Provider: 02/29/24 Time Seen by Provider: 09:10 Provider Provider: BR[facility]-C, [facility] Chief Complaint Chief Complaint: HYPOKALEMIA Subjective Subjective: Patient doing well. Potassium slowly improving, still only 2.9 this morning. Not having any losses. Objective Appearance: Positive Well-appearing, Well-nourished, No Apparent Distress and Alert and Oriented x3 Chest/Lungs: Positive Clear to Auscultation Bilaterally; Negative Rales, Rhonci or Wheezes Heart: Positive RRR GI/: Positive Soft, Nontender, Bowel Sounds Normal and No Distention Neurological: Positive Alert, Oriented and Muscle Strength 5/5 in Upper and Lower Extremities Bilaterally Vital Signs Vital Signs: Vital Signs: Last 24 Hours 02/28/24 15:00 02/28/24 16:00 02/28/24 17:00 Temperature Temperature Source Pulse Rate Respiratory Rate Blood Pressure Blood Pressure Mean Blood Pressure Location Blood Pressure Position O2 Sat by Pulse Oximetry Oxygen Delivery Method Room Air Room Air Room Air Telemetry Type Telemetry Monitoring Telemetry Heart Rate EKG NM Interval EKG QRS Interval Telemetry Strip Reading 02/28/24 18:00 02/28/24 18:00 02/28/24 19:00 Temperature 97.6 F Temperature Source Oral Pulse Rate 68 Respiratory Rate 16 Blood Pressure 120/64 Blood Pressure Mean 82 Blood Pressure Location Left Arm Blood Pressure Position Sitting O2 Sat by Pulse Oximetry 98 Oxygen Delivery Method Room Air Room Air Telemetry Type Remote Telemetry Telemetry Monitoring Continues Telemetry Heart Rate 68 EKG NM Interval 0.22 H EKG QRS Interval 0.19 H Telemetry Strip Reading SR with AVB/BBB 02/28/24 19:00 02/28/24 20:00 02/28/24 20:00 Temperature Temperature Source Pulse Rate Respiratory Rate Blood Pressure Blood Pressure Mean Blood Pressure Location Blood Pressure Position O2 Sat by Pulse Oximetry Oxygen Delivery Method Room Air Room Air Room Air Telemetry Type Telemetry Monitoring Telemetry Heart Rate EKG NM Interval EKG QRS Interval Telemetry Strip Reading 02/28/24 20:34 02/28/24 21:00 02/28/24 22:00 Temperature 97.2 F L Temperature Source Temporal Artery Scan Pulse Rate 68 Respiratory Rate 17 Blood Pressure 142/78 H Blood Pressure Mean 99 Blood Pressure Location Left Arm Blood Pressure Position Supine O2 Sat by Pulse Oximetry 96 Oxygen Delivery Method Room Air Room Air Room Air Telemetry Type Telemetry Monitoring Telemetry Heart Rate EKG NM Interval EKG QRS Interval Telemetry Strip Reading 02/28/24 23:00 02/29/24 00:00 02/29/24 01:00 Temperature Temperature Source Pulse Rate Respiratory Rate Blood Pressure Blood Pressure Mean Blood Pressure Location Blood Pressure Position O2 Sat by Pulse Oximetry Oxygen Delivery Method Room Air Room Air Room Air Telemetry Type Telemetry Monitoring Telemetry Heart Rate EKG NM Interval EKG QRS Interval Telemetry Strip Reading 02/29/24 01:00 02/29/24 02:00 02/29/24 02:00 Temperature 98.1 F Temperature Source Temporal Artery Scan Pulse Rate 97 Respiratory Rate 19 Blood Pressure 127/80 Blood Pressure Mean 95 Blood Pressure Location Left Arm Blood Pressure Position Supine O2 Sat by Pulse Oximetry 97 Oxygen Delivery Method Room Air Room Air Telemetry Type Remote Telemetry Telemetry Monitoring Continues Telemetry Heart Rate 63 EKG NM Interval 0.19 EKG QRS Interval 0.19 H Telemetry Strip Reading SR with BBB 02/29/24 03:00 02/29/24 04:00 02/29/24 05:00 Temperature Temperature Source Pulse Rate Respiratory Rate Blood Pressure Blood Pressure Mean Blood Pressure Location Blood Pressure Position O2 Sat by Pulse Oximetry Oxygen Delivery Method Room Air Room Air Room Air Telemetry Type Telemetry Monitoring Telemetry Heart Rate EKG NM Interval EKG QRS Interval Telemetry Strip Reading 02/29/24 05:42 02/29/24 05:42 02/29/24 07:00 Temperature 97.5 F L Temperature Source Temporal Artery Scan Pulse Rate 62 Respiratory Rate 16 Blood Pressure 138/79 Blood Pressure Mean 98 Blood Pressure Location Right Arm Blood Pressure Position Supine O2 Sat by Pulse Oximetry 95 Oxygen Delivery Method Room Air Room Air Room Air Telemetry Type Telemetry Monitoring Telemetry Heart Rate EKG NM Interval EKG QRS Interval Telemetry Strip Reading 02/29/24 07:00 02/29/24 08:00 02/29/24 08:00 Temperature Temperature Source Pulse Rate Respiratory Rate 18 Blood Pressure Blood Pressure Mean Blood Pressure Location Blood Pressure Position O2 Sat by Pulse Oximetry Oxygen Delivery Method Room Air Room Air Telemetry Type Remote Telemetry Telemetry Monitoring Continues Telemetry Heart Rate 63 EKG NM Interval 0.20 EKG QRS Interval 0.12 H Telemetry Strip Reading SR with BBB 02/29/24 09:00 02/29/24 10:00 02/29/24 10:00 Temperature 98.4 F Temperature Source Temporal Artery Scan Pulse Rate 65 Respiratory Rate 14 Blood Pressure 99/84 Blood Pressure Mean 89 Blood Pressure Location Right Arm Blood Pressure Position Sitting O2 Sat by Pulse Oximetry 96 Oxygen Delivery Method Room Air Room Air Room Air Telemetry Type Telemetry Monitoring Telemetry Heart Rate EKG NM Interval EKG QRS Interval Telemetry Strip Reading 02/29/24 10:44 02/29/24 12:00 02/29/24 13:00 Temperature Temperature Source Pulse Rate Respiratory Rate Blood Pressure Blood Pressure Mean Blood Pressure Location Blood Pressure Position O2 Sat by Pulse Oximetry Oxygen Delivery Method Room Air Room Air Room Air Telemetry Type Telemetry Monitoring Telemetry Heart Rate EKG NM Interval EKG QRS Interval Telemetry Strip Reading 02/29/24 14:00 02/29/24 14:00 Temperature 97.1 F L Temperature Source Temporal Artery Scan Pulse Rate 67 Respiratory Rate 16 Blood Pressure 103/55 L Blood Pressure Mean 71 Blood Pressure Location Right Arm Blood Pressure Position O2 Sat by Pulse Oximetry 98 Oxygen Delivery Method Room Air Room Air Telemetry Type Telemetry Monitoring Telemetry Heart Rate EKG NM Interval EKG QRS Interval Telemetry Strip Reading Lab Results Lab Results: Lab Results: Last 24 Hours 02/29/24 02/28/24 05:29 18:00 WBC 7.60 RBC 3.83 L Hgb 10.9 L Hct 34.2 L MCV 89.3 MCH 28.5 MCHC 31.9 RDW Coeff of Gisselle 14.9 H Plt Count 305 Immature Gran % (Auto) 0.4 Neut % (Auto) 69.2 Lymph % (Auto) 19.5 [place] % (Auto) 6.4 Eos % (Auto) 3.7 Baso % (Auto) 0.8 Neut # (Auto) 5.3 Lymph # (Auto) 1.5 [place] # (Auto) 0.5 Eos # (Auto) 0.3 Baso # (Auto) 0.1 Immature Gran # (Auto) 0.0 Sodium 142.3 140.8 Potassium 2.95 L 2.74 L* Chloride 103.8 103.1 Carbon Dioxide 33.7 H 29.1 Anion Gap 7.75 11.34 BUN 15.1 21.6 H Creatinine 0.82 0.94 Estimated GFR (MDRD) 70.00 60.00 BUN/Creatinine Ratio 18.41 22.97 Glucose 102.5 82.0 Calcium 8.53 9.02 Magnesium 2.14 Total Bilirubin 0.52 AST 30.2 ALT 17.7 Alkaline Phosphatase 92.7 Total Protein 7.18 Albumin 3.96 Globulin 3.22 Albumin/Globulin Ratio 1.22 Additional Comments Additional Comments: I have independently reviewed and interpreted the labs/EKGs/imaging ordered during this hospital stay. I have reviewed outside records that are available in our EMR that pertain to medical stay including imaging/notes/labs from previous visits. Active Medications Active Medications: Medications Generic Name Dose Route Start Last Admin Trade Name Freq PRN Reason Stop Dose Admin Acetaminophen 650 mg 02/28/24 14:26 Acetaminophen 325 Mg Tablet PO Q4H PRN Mild Pain Albuterol Sulfate 2 puff 02/28/24 18:36 Albuterol Sulfate 8 Gm Inhaler IH Q4-6H PRN Wheezing Budesonide/Formoterol Fumarate 2 puff 02/28/24 21:00 02/29/24 08:12 Budesonide/Formoterol Fumarate 80/4.5 Mcg Hfa.Aer.Ad IH 2 puff BID FRANKIE Administration Gabapentin 600 mg 02/28/24 21:00 02/29/24 14:48 Gabapentin 300 Mg Capsule PO 600 mg TID FRANKIE Administration Metoprolol Succinate 50 mg 02/28/24 21:00 02/28/24 21:02 Metoprolol Succinate 50 Mg Tab.Er.24h PO 50 mg BEDTIME FRANKIE Administration Omeprazole 20 mg 02/28/24 21:00 02/29/24 05:14 Omeprazole 20 Mg Capsule.Dr PO 20 mg BIDAC2 FRANKIE Administration Ropinirole HCl 1 mg 02/28/24 21:00 02/28/24 21:02 Ropinirole Hcl 1 Mg Tablet PO 1 mg BEDTIME FRANKIE Administration Sucralfate 1 gm 02/28/24 21:00 02/29/24 11:00 Sucralfate 1 Gm Tablet PO 1 gm ACHS2 FRANKIE Administration Torsemide 40 mg 02/28/24 21:00 02/29/24 08:09 Torsemide 20 Mg Tablet PO 40 mg BID FRANKIE Administration Plan Plan: 1. Acute hypokalemia, severe - Improving slowly, continue potassium replacement today, repeat tomorrow. Tele. Pt takes torsemide but will avoid changing dose. 2. Systolic heart failure, not in exacerbation - Cont home meds 3. DMT2 - Cont home meds 4. Hypertension - Cont home meds 5. GERD - Cont home meds DVT Prophylaxis: Ambulation Dispo: Likely dc tomorrow Review Statement Review Statement: I have personally discussed and reviewed the patient's visit/currently labs/imaging/decision making with Dr. Mcneil, my supervising attending. Greater that 50 minutes spent with patient, 50% of the time spent with this patient was devoted to counseling and coordination of care.
[2024-03-01 05:34] LABS: BASOPHILS # (AUTO) 0.1 K/uL (0-0.2); BASOPHILS % (AUTO) 0.7 % (0.0-3.0); EOSINOPHILS # (AUTO) 0.4 K/ul (0.0-0.7); EOSINOPHILS % (AUTO) 4.9 % (0.0-7.0); HEMATOCRIT 34.1 % (37.0-47.0); HEMOGLOBIN 10.8 g/dl (12.0-16.0); IMMATURE GRANULOCYTE % (AUTO) 0.4 % (0.0-5.0); LYMPHOCYTES # (AUTO) 1.7 K/uL (0.60-3.4); LYMPHOCYTES % (AUTO) 19.3 (10.0-50.0); MEAN CORPUSCULAR HEMOGLOBIN 28.3 pg (27.0-31.0); MEAN CORPUSCULAR HGB CONC 31.7 (31.8-35.4); MEAN CORPUSCULAR VOLUME 89.5 fl (81.0-99.0); MONOCYTES # (AUTO) 0.5 K/uL (0.4-2.0); MONOCYTES % (AUTO) 6.3 (0-10); NEUTROPHILS # (AUTO) 5.8 K/ul (2.0-6.9); NEUTROPHILS % (AUTO) 68.4 % (42.2-75.2); PLATELET COUNT 275 10^3/uL (140-440); RDW COEFFICIENT OF VARIATION 14.8 % (11.6-14.8); RED BLOOD COUNT 3.81 10^6/ul (4.20-5.40); WHITE BLOOD COUNT 8.54 K/ul (4.6-10.2)
[2024-03-01 05:59] LABS: ALBUMIN 3.75 g/dL (3.5-5.0); ALKALINE PHOSPHATASE 81.9 U/L (53-141); ASPARTATE AMINO TRANSFERASE 31.6 U/L (14-36); BILIRUBIN,TOTAL 0.45 mg/dL (0.2-1.3); BLOOD UREA NITROGEN 11.6 mg/dL (7-17); CALCIUM 8.73 mg/dL (8.4-10.2); CARBON DIOXIDE 31.6 mmol/L (22-30.0); CHLORIDE 106.2 mmol/L (98-107); CREATININE 0.77 mg/dL (0.60-1.30); POTASSIUM 3.33 mmol/L (3.5-5.1); SODIUM 141.9 mmol/L (134.5-145)
[2024-03-01] MEDS: K-DUR PO ONE (09:52)
[2024-03-01 10:11] VITALS: BP 154/98; PULSE 67; RESP 18; TEMP 97.6
--- NOTE | 2024-03-01 10:32 | DCSUM ---
Admission Date Admission Date: 02/28/24 Discharge Date Discharge Date: 03/01/24 Admission Diagnosis Admission Diagnosis: 1. Acute hypokalemia, severe Discharge Diagnosis Discharge Diagnosis: 1. Acute hypokalemia, severe - resolved 2. Systolic heart failure, not in exacerbation 3. DMT2 4. Hypertension 5. GERD Hospital Provider Hospital Provider: BRENT GU[facility]RA [facility]-C, [facility] Primary Care Physician Primary Care Physician: JAGDEEP NICHOLS APRN,[facility] Summary of History and Physical Summary of History and Physical: Patient is a 64 year old female from home who presents for low K+. Patient states she was getting blood work for a imaging test done this morning. She was then called saying her K+ was low. She states overall she hasn't felt well and she can tell when it lowers. She states she usually takes 5 K+ tabs per day but her nephrology group advised only 4 since she was started on amiloride. However she's been unable to tolerate the amiloride and hasn't been taking it. Potassium in ER was found to be 2.4. She was given 40 meq orally and 40 meq IV have been ordered. She is otherwise asymptomatic. No EKG changes. Hospital Course Subjective: Patient was given potassium replacement. K+ improved but still only 2.9 on 6.13. She was kept another day for replacement. Potassium 3.3 today. Will discharge on 120 meq daily total (was taking 80 meq daily). Advised to recheck bmp with pcp early next week. Pt is agreeable. She will also reschedule her apt with nephrology, as she was on spironolactone in the past and doing well but was switched to amiloride but she hasn't tolerated it and hasn't been taking it. Advised her to discuss further with nephrology. Pt agreeable to plan of care. Appearance: Pleasant, No Apparent Distress and Alert HEENT: MMM and Supple CVS: No Murmur Abdomen: Soft, Non-Tender and No Distention Respiratory: No Accessory Muscle Use Extremities: No Edema Vital Signs: Most Recent Vital Signs Temperature 97.6 F 03/01/24 10:00 Temperature Source Temporal Artery Scan 03/01/24 10:00 Temperature Source Infrared 02/28/24 10:36 Pulse Rate 67 03/01/24 10:00 Respiratory Rate 18 03/01/24 10:00 Blood Pressure 154/98 H 03/01/24 10:00 Blood Pressure Mean 116 03/01/24 10:00 Blood Pressure Right Arm 119/82 02/28/24 13:08 Blood Pressure Location Right Arm 03/01/24 10:00 Blood Pressure Position Sitting 03/01/24 10:00 O2 Sat by Pulse Oximetry 99 03/01/24 10:00 Oxygen Delivery Method Room Air 03/01/24 10:00 Height 5 ft 1 in 02/28/24 13:08 Weight 192 lb 3 oz 02/28/24 13:08 Telemetry Type Remote Telemetry 03/01/24 07:00 Telemetry Monitoring Continues 03/01/24 07:00 Telemetry Heart Rate 73 03/01/24 07:00 EKG DE Interval 0.18 03/01/24 07:00 EKG QRS Interval 0.14 H 03/01/24 07:00 Telemetry Strip Reading SR w/ BBB 03/01/24 07:00 Lab Results Last 24 Hours: 03/01/24 02/29/24 05:20 15:49 WBC 8.54 RBC 3.81 L Hgb 10.8 L Hct 34.1 L MCV 89.5 MCH 28.3 MCHC 31.7 L RDW Coeff of Gisselle 14.8 Plt Count 275 Immature Gran % (Auto) 0.4 Neut % (Auto) 68.4 Lymph % (Auto) 19.3 [place] % (Auto) 6.3 Eos % (Auto) 4.9 Baso % (Auto) 0.7 Neut # (Auto) 5.8 Lymph # (Auto) 1.7 [place] # (Auto) 0.5 Eos # (Auto) 0.4 Baso # (Auto) 0.1 Immature Gran # (Auto) 0.0 Sodium 141.9 Potassium 3.33 L 3.44 L Chloride 106.2 Carbon Dioxide 31.6 H Anion Gap 7.43 BUN 11.6 Creatinine 0.77 Estimated GFR (MDRD) 75.00 BUN/Creatinine Ratio 15.06 Glucose 93.0 Calcium 8.73 Magnesium 1.92 Total Bilirubin 0.45 AST 31.6 ALT 18.0 Alkaline Phosphatase 81.9 Total Protein 7.00 Albumin 3.75 Globulin 3.25 Albumin/Globulin Ratio 1.15 Discharge Instructions Discharge Planning: Discharge Planning > 70 minutes If patient is discharged with left ventricular systolic dysfunction: Discharged with a beta jacky? Y If no, why not? [] Discharged with an speedy/arb? If no, why not? Was on one in the past, stopped outpatient Discharge Medications: Medications at Discharge (Home Meds & RX) Discharge Plan Discharge Discharge Orders: Discharge Patient (ONCE); Ordered 03/01/24 Ordered By: BRENT GUERRA Activity Restrictions/Additional Instructions: DISCHARGE TO HOME DX: HYPOKALEMIA IN SETTING OF DIURETIC USE PHARMACY: [facility] INCREASE POTASSIUM MEQ BY 40 MEQ A DAY FOR A TOTAL OF 120 MEQ RECHECK POTASSIUM LEVELS EARLY NEXT WEEK AND F/U WITH PCP RESCHEDULE NEPHROLOGY APT Instructions: Potassium Supplement (By mouth), Torsemide (By mouth), Potassium Content of Foods List (DC), Hypokalemia (DC) Patient Disposition: HOME SELF-CARE Prescriptions: Continued multivitamin [Daily Multi-Vitamin] 1 EACH tablet 1 ea PO d fluticasone propionate [Allergy Relief (fluticasone)] 50 mcg/actuation spray,suspension 1 spray intranasal QDAY PRN (Reason: nasal congestion) Qty: 16 2RF Rx Instructions: administer into each nostril metformin 500 mg tablet See Rx Instructions .ROUTE .COMPLEX Qty: 180 1RF Dose Instruction: TAKE ONE TABLET TWICE A DAY WITH MEALS Rx Instructions: TAKE ONE TABLET TWICE A DAY WITH MEALS Mounjaro 7.5 mg/0.5 mL pen injector See Rx Instructions .ROUTE .COMPLEX Qty: 2 1RF Dose Instruction: INJECT 7.5 MG (0.5 ML) SUBCUTANEOUSLY EVERY WEEK 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 torsemide 20 mg tablet 40 mg PO BID 90 Days Qty: 360 1RF pantoprazole 20 mg tablet,delayed release (DR/EC) See Rx Instructions .ROUTE .COMPLEX Qty: 180 0RF Dose Instruction: TAKE ONE TABLET EVERY TWELVE HOURS GENERIC FOR PROTONIX Rx Instructions: TAKE ONE TABLET EVERY TWELVE HOURS GENERIC FOR PROTONIX ropinirole 1 mg tablet 1 mg PO QHS Qty: 30 0RF Rx Instructions: administer 1-3 hours before bedtime metoprolol succinate 50 mg tablet extended release 24 hr 50 mg PO BEDTIME Rx Instructions: stop the metoprolol tartrate and change to metoprolol succinate and change to nightly once daily dosing nitroglycerin [Nitrostat] 0.4 mg tablet, sublingual 0.4 mg sublingual Q5M PRN (Reason: chest pain) Rx Instructions: do not exceed 3 doses per episode albuterol sulfate 90 mcg/actuation HFA aerosol inhaler 2 puff inhalation Q4-6H PRN (Reason: shortness of breath or wheezing) Qty: 8.5 2RF sucralfate 1 gram tablet 1 g PO QACHS 90 Days Qty: 360 2RF magnesium oxide 400 mg magnesium tablet 400 mg PO BID Qty: 60 2RF budesonide-formoterol [Symbicort] 80-4.5 mcg/actuation HFA aerosol inhaler 2 puff inhalation BID Qty: 10.2 2RF gabapentin 600 mg tablet 600 mg PO TID 30 Days Qty: 90 0RF Changed potassium chloride [Klor-Con M20] 20 mEq tablet,ER particles/crystals 20 meq PO 6XD Qty: 180 0RF Rx Instructions: Take a total of 120 meq daily. Discontinued amiloride 5 mg tablet 5 mg PO BID Qty: 60 0RF Hold Instructions: states not taking makes her sick Rx Instructions: ordered by nephrology losartan 25 mg tablet 25 mg PO QDAY Qty: 90 1RF Hold Instructions: not taking makes her sick Did you review [place] [employer] for ALL controlled substances?: Not Applicable Discussed opioids are addictive and Narcan is available by prescription or from pharmacy.: No Condition: Stable Referrals: [facility] [Primary Care Provider] - 03/06/24 2:45 pm
== END 2024-03-01 13:00 | disposition home or self-care (01) ==
LOC: MEDSURG B 10:32 → ED 10:32 → MEDSURG B 12:58
PROVIDERS: ADMIT Hospitalist; ATTEND Physician Assistant